=== PATIENT | male | born 1950 | race Caucasian/White ===

== ENCOUNTER 2018-10-16 18:19 | Inpatient (IN) | payer MEDICARE, MEDICAID ==
[~2018-10-16] VITALS: Ht 165.1 cm; Wt 70.4 kg
[2018-10-16] MEDS ORDERED: POTASSIUM BICARBONATE 25 MEQ TAB PEG STA (19:45)
[2018-10-16] MEDS ORDERED: CEFTRIAXONE 1 GM/50 ML (PMX) 50 ML IVPB STA (19:48)
[2018-10-16] MEDS ORDERED: AZITHROMYCIN 500MG/NS (PMX) 250 ML IV STA (19:48)
--- NOTE | 2018-10-16 19:48 | ERD ---
ER Documentation Chief Complaint Chief Complaint diffused ab pain x2days "bloody vomit" unk #of episodes; productive cough HPI 68-year-old gentleman history of prior stroke with left-sided deficits presents to the emergency room with multiple complaints including cough congestion, possible blood in emesis but unsure, abdominal discomfort and constipation. No reported fevers during this timeframe. The patient is G-tube fed. [facility] Family was giving the history using an plastics patternmaker. ROS All systems reviewed and are negative except as per history of present illness. Allergies Allergies: Coded Allergies: No Known Allergy (Unverified , 10/16/18) PMhx/Soc History of Surgery: Yes (APPENDECTOMY) Anesthesia Reaction: No Hx Neurological Disorder: Yes (CVA 8 MONTHS AGO ) Hx Respiratory Disorders: No Hx Cardiac Disorders: Yes (HTN, HYPERLIPIDEMIA ) Hx Psychiatric Problems: No Hx Miscellaneous Medical Probl: No Hx Alcohol Use: No Hx Substance Use: No Hx Tobacco Use: No Smoking Status: Never smoker FmHx Family History: No diabetes Physical Exam Vitals Vital Signs Date Temp Pulse Resp B/P (MAP) Pulse Ox O2 O2 Flow FiO2 Time Delivery Rate 10/16/18 65 14 121/95 99 Room Air 18:41 (104) 10/16/18 97.9 69 20 120/75 98 18:35 (90) Physical Exam General: Well developed, well nourished, no acute distress Head: Normocephalic, atraumatic. Eyes: Pupils equally reactive, EOM intact ENT: Moist mucous membranes Neck: Supple, no lymphadenopathy Respiratory: Lungs clear bilaterally, no distress Cardiovascular: RRR, no murmurs, rubs, or gallops Abdominal: Soft, non-tender, non-distended, no peritoneal signs, G-tube in good position : Deferred MSK: No edema, no unilateral swelling, residual left-sided deficits Neurologic: Alert and oriented residual left-sided deficit Skin: No rash Psych: Normal mood Result Diagram: 10/16/185 10/16/18 1835 Results 24 hrs Laboratory Tests Test 10/16/18 18:35 White Blood Count 7.4 10^3/ul Red Blood Count 5.56 10^6/ul Hemoglobin 15.2 g/dl Hematocrit 45.4 % Mean Corpuscular Volume 81.7 fl Mean Corpuscular Hemoglobin 27.3 pg Mean Corpuscular Hemoglobin Concent 33.5 g/dl Red Cell Distribution Width 15.0 % Platelet Count 299 10^3/UL Mean Platelet Volume 10.3 fl Immature Granulocytes % 0.300 % Neutrophils % 42.0 % Lymphocytes % 47.6 % Monocytes % 6.2 % Eosinophils % 3.5 % Basophils % 0.4 % Nucleated Red Blood Cells % 0.0 /100WBC Immature Granulocytes # 0.020 10^3/ul Neutrophils # 3.1 10^3/ul Lymphocytes # 3.5 10^3/ul Monocytes # 0.5 10^3/ul Eosinophils # 0.3 10^3/ul Basophils # 0.0 10^3/ul Nucleated Red Blood Cells # 0.0 10^3/ul Sodium Level 139 mmol/L Potassium Level 2.7 mmol/L Chloride Level 95 mmol/L Carbon Dioxide Level 33 mmol/L Anion Gap 11 Blood Urea Nitrogen 15 mg/dl Creatinine 0.75 mg/dl Est Glomerular Filtrat Rate mL/min > 60 mL/min Glucose Level 122 mg/dl Calcium Level 9.2 mg/dl Total Bilirubin 0.7 mg/dl Direct Bilirubin 0.00 mg/dl Indirect Bilirubin 0.7 mg/dl Aspartate Amino Transf (AST/SGOT) 33 IU/L Alanine Aminotransferase (ALT/SGPT) 21 IU/L Alkaline Phosphatase 125 IU/L Troponin I 0.023 ng/ml Total Protein 7.4 g/dl Albumin 4.0 g/dl Globulin 3.40 g/dl Albumin/Globulin Ratio 1.17 Lipase 39 U/L Current Medications Medications Dose Sig/Vicky Start Time Status Last (Trade) Ordered Route PRN Stop Time Admin Dose Reason Admin Potassium 25 meq ONCE STAT 10/16/18 DC Bicarbonate PEG 19:45 (K-Lyte 10/16/18 19:51 Efferv Tab) Azithromycin 250 ml @ ONCE STAT 10/16/18 250 mls/hr IV 19:48 10/16/18 20:47 Ceftriaxone 50 ml @ ONCE STAT 10/16/18 Sodium 100 mls/hr IVPB 19:48 10/16/18 20:17 Ondansetron 4 mg BRIDGE ORDER 10/16/18 HCl (Zofran PRN IV 20:30 Inj) NAUSEA/VOMITI 10/17/18 20:29 NG 650 mg ER BRIDGE 10/16/18 Acetaminophen PRN PO 20:30 (Tylenol .MILD PAIN 10/17/18 20:29 Tab) 1-3 OR TEMP Procedures/MDM EKG, MONITORS, & DIAGNOSTIC IMAGING: EKG: I reviewed and interpreted a 12-lead EKG. Rhythm: Normal sinus rhythm ST Changes: No contiguous ST segment elevations T waves: No contiguous T wave inversions Impression: No evidence of acute cardiac ischemia CXR IMPRESSION: Minimal new right basilar opacity possibly representing developing infiltrate. RPTAT: AADD CT a/p IMPRESSION: 1. G tube in place with tip and balloon in the gastric lumen. 2. Mild nonspecific small bowel ileus. 3. Mild ectasia of the distal abdominal aorta measuring up to 24 mm. 4. Otherwise, no evident acute process in the abdomen or pelvis. RPTAT: UU LAB INTERPRETATION: I reviewed the laboratory testing and it shows hypokalemia MEDICAL DECISION MAKING: Patient with very nonspecific symptoms but concern for possible pneumonia versus acute intra-abdominal process. Given the patient's comorbidities advanced imaging would be appropriate. ER COURSE: * Patient's chest x-ray is concerning for possible pneumonia. The patient does not meet Sirs criteria. Blood cultures prior to subtraction azithromycin provided. The patient is at a boarding care and other risk for Pseudomonas at this time. * CT abdomen pelvis is unremarkable. Potassium is being repleted through the G- tube CONSULTATION: None DISPOSITION PLAN: Accepting care team and consultations: I discussed the current laboratory data, diagnostic imaging and emergency care provided. Admitting team: Dr. Briseno Admitting team indication: Insurance directed Departure Diagnosis: Primary Impression: Community acquired pneumonia Laterality: right Lung location: lower lobe of lung Qualified Codes: J18.1 - Lobar pneumonia, unspecified organism Additional Impressions: History of stroke Abdominal pain Abdominal location: generalized Qualified Codes: R10.84 - Generalized abdominal pain Hypokalemia Condition: Stable MICHEL HOLLOWAY MD Oct 16, 2018 19:48
[2018-10-16] MEDS ORDERED: ONDANSETRON 4 MG INJ IV PRN ×2 (20:30→23:00)
[2018-10-16] MEDS ORDERED: ACETAMINOPHEN 325 MG TAB PO PRN (20:30)
[2018-10-16 21:45] VITALS: Ht 165.1 cm; Wt 70.4 kg
[2018-10-16 21:52] VITALS: BP 105/70; PULSE 72; RESP 19
[2018-10-16] MEDS ORDERED: DULCOLAX SUPP RECTAL (22:41)
[2018-10-16] MEDS ORDERED: SERT25TA PO (22:42)
[2018-10-16] MEDS ORDERED: LORA1TAB PO (22:42)
[2018-10-16] MEDS ORDERED: CLOP75TA27 PO (22:43)
[2018-10-16] MEDS ORDERED: ONDA4TAB8 PO (22:43)
[2018-10-16] MEDS ORDERED: ASPI-817 GTB (22:44)
[2018-10-16] MEDS ORDERED: HYDR25TA6 GTB (22:45)
[2018-10-16] MEDS ORDERED: DOCU-159 GTB (22:46)
[2018-10-16] MEDS ORDERED: SENN-120 GTB (22:47)
[2018-10-16] MEDS ORDERED: ATOR40TA68 GTB (22:48)
[2018-10-16] MEDS ORDERED: ONDANSETRON 4 MG TAB PO PRN (23:00)
[2018-10-16] MEDS ORDERED: NACL 0.9% 3 ML SYG IV SCH (23:00)
[2018-10-16] MEDS ORDERED: ALBUTEROL/IPRATROPIUM (NEB) 3 ML AMP HHN PRN (23:00)
--- NOTE | 2018-10-16 23:01 | HP ---
Date/Time of Note Date/Time of Note DATE: 10/16/18 TIME: 23:01 Assessment/Plan VTE Prophylaxis Pharmacological prophylaxis: heparin Lines/Catheters IV [facility] Saline Lock Urinary Cath still in place: No Assessment/Plan Assessment/Plan 1. Questionable hematemesis -CT abdomen/pelvis without acute findings -PPI -GI consult 2. Right-sided pneumonia -IV antibiotic -Respiratory culture 3. Hypokalemia: Replete 4. CVA, 8-month ago with left-sided deficit -Aspirin and statin 5. Hypertension: BP is in acceptable range 6. G-tube: Patient also able to take pured diet 7. Dyslipidemia: Continue statin 8. Previous history of tracheostomy: No acute issue Result Diagram: 10/16/18 1835 10/16/18 1835 Results 24hrs Laboratory Tests Test 10/16/18 18:35 White Blood Count 7.4 Red Blood Count 5.56 Hemoglobin 15.2 Hematocrit 45.4 Mean Corpuscular Volume 81.7 L Mean Corpuscular Hemoglobin 27.3 L Mean Corpuscular Hemoglobin Concent 33.5 Red Cell Distribution Width 15.0 H Platelet Count 299 Mean Platelet Volume 10.3 Immature Granulocytes % 0.300 Neutrophils % 42.0 Lymphocytes % 47.6 Monocytes % 6.2 Eosinophils % 3.5 Basophils % 0.4 Nucleated Red Blood Cells % 0.0 Immature Granulocytes # 0.020 Neutrophils # 3.1 Lymphocytes # 3.5 H Monocytes # 0.5 Eosinophils # 0.3 Basophils # 0.0 Nucleated Red Blood Cells # 0.0 Sodium Level 139 Potassium Level 2.7 *L Chloride Level 95 L Carbon Dioxide Level 33 H Anion Gap 11 Blood Urea Nitrogen 15 Creatinine 0.75 Est Glomerular Filtrat Rate mL/min > 60 Glucose Level 122 Calcium Level 9.2 Total Bilirubin 0.7 Direct Bilirubin 0.00 Indirect Bilirubin 0.7 Aspartate Amino Transf (AST/SGOT) 33 Alanine Aminotransferase (ALT/SGPT) 21 Alkaline Phosphatase 125 H Troponin I 0.023 Total Protein 7.4 Albumin 4.0 Globulin 3.40 H Albumin/Globulin Ratio 1.17 Lipase 39 HPI/ROS Admit Date/Time Admit Date/Time Oct 16, 2018 at 20:02 Hx of Present Illness This is a 68-year-old male with a history of hypertension, dyslipidemia, CVA with left-sided deficits, dysphagia with G-tube, previous history of tracheostomy. Patient presented to the ER complaining of abdominal pain, cough and questionable hematemesis. Patient had a stroke about a month ago with left- sided paralysis. He is also slow with answering questions and is a poor historian. He did complain of abdominal pain and vomiting, but denied vomiting blood even thoug ER documented that as part of his chief complaint. He did complain of pain in the left neck area. In ER, vitals were stable. Lab shows a potassium of 2.7 otherwise basic labs within acceptable range. CT abdomen/pelvis without acute findings. Chest x-ray shows right basilar opacity, possibly representing developing pneumonia. PMH/Family/Social Past Medical History Medical History: other (See HPI) Medications Current Medications Ondansetron HCl (Zofran Inj) 4 mg BRIDGE ORDER PRN IV NAUSEA/VOMITING; Start 10/16/18 at 20:30; Stop 10/17/18 at 20:29 Acetaminophen (Tylenol Tab) 650 mg ER BRIDGE PRN PO .MILD PAIN 1-3 OR TEMP; Start 10/16/18 at 20:30; Stop 10/17/18 at 20:29 IV Flush (NS 3 ml) 3 ml PER PROTOCOL IV ; Start 10/16/18 at 23:00; Status UNV Ondansetron HCl (Zofran Inj) 4 mg Q6H PRN IV NAUSEA/VOMITING; Start 10/16/18 at 23:00; Status UNV Acetaminophen (Tylenol Tab) 650 mg Q6H PRN PO .PAIN 1-3 OR TEMP; Start 10/16/18 at 23:00; Status UNV Albuterol/ Ipratropium (Duoneb) 3 ml Q2H RESP THERAPY PRN HHN SHORTNESS OF BREATH; Start 10/16/18 at 23:00; Status UNV Aspirin (Halfprin) 81 mg DAILY PO ; Start 10/17/18 at 09:00; Status UNV Atorvastatin Calcium (Lipitor) 40 mg QHS GTB ; Start 10/17/18 at 21:00; Status UNV Clopidogrel Bisulfate (plaVIX) 75 mg DAILY PO ; Start 10/17/18 at 09:00; Status UNV Docusate Sodium (Colace) 100 mg DAILY PO ; Start 10/17/18 at 09:00; Status UNV Lorazepam (Ativan) 1 mg TID PRN PO ANXIETY; Start 10/16/18 at 23:00; Status UNV Ondansetron HCl (Zofran Tab) 4 mg Q6H PRN PO NAUSEA AND/OR VOMITING; Start at 23:00; Status UNV Sertraline HCl (Zoloft) 25 mg DAILY PO ; Start 10/17/18 at 09:00; Status UNV Coded Allergies: No Known Allergy (Unverified , 10/16/18) Past Surgical History Past Surgical Hx: other (See HPI) Family History Significant Family History: no pertinent family hx Social History Alcohol Use: other Smoking Status: Unknown if ever smoked (Unknown) Drug Use: other (Unknown) Exam/Review of Systems Vital Signs Vitals Vital Signs Date Temp Pulse Resp B/P (MAP) Pulse Ox O2 O2 Flow FiO2 Time Delivery Rate 10/16/18 98.1 72 19 105/70 97 Room Air 21:52 (82) Exam Constitutional: other (No acute distress. Patient was found lying sideway on the bed) Head: normocephalic, atraumatic Eyes: PERRL Respiratory: clear to auscultation, normal air movement Cardiovascular: regular rate and rhythm, nl pulses Gastrointestinal: soft, non-tender Extremities: other (Left upper extremity paralysis. On my examination left arm was locked in flexed position) IQRA POZO MD Oct 16, 2018 23:01
[2018-10-17] MEDS: ACETAMINOPHEN 325 MG TAB PO PRN ×3 (00:24→17:46)
[2018-10-17] MEDS: LORAZEPAM 1 MG TAB PO PRN ×2 (00:24→16:17)
[2018-10-17 02:00] VITALS: BP 119/78; PULSE 80; RESP 19
[2018-10-17] MEDS ORDERED: GUAIFENESIN/CODEINE 5ML CUP PO PRN (05:00)
[2018-10-17] MEDS: PANTOPRAZOLE 40 MG INJ IV SCH (05:31)
[2018-10-17] MEDS ORDERED: PANTOPRAZOLE (EC) 40 MG TAB PO SCH (06:00)
[2018-10-17 07:54] VITALS: BP 109/71; PULSE 71; RESP 18
[2018-10-17] MEDS: SERTRALINE 50 MG TAB PO SCH (08:57)
[2018-10-17] MEDS: ASPIRIN (EC) 81 MG TAB PO SCH (08:57)
[2018-10-17] MEDS: CEFTRIAXONE 1 GM/50 ML (PMX) 50 ML IVPB SCH ×2 (08:57→21:26)
[2018-10-17] MEDS: DOCUSATE SODIUM 100 MG CAP PO SCH (08:57)
[2018-10-17] MEDS: CLOPIDOGREL 75 MG TAB PO SCH (08:57)
[2018-10-17] MEDS ORDERED: AZITHROMYCIN 500MG/NS (PMX) 250 ML IVPB SCH (09:00)
[2018-10-17] MEDS: POTASSIUM CHLORIDE 100 ML IVPB SCH ×3 (11:04→16:02)
[2018-10-17 16:14] VITALS: BP 149/81; PULSE 75; RESP 18
--- NOTE | 2018-10-17 18:37 | PN ---
Date/Time of Note Date/Time of Note DATE: 10/17/18 TIME: 18:34 Assessment/Plan VTE [place]phylaxis [place] [facility] [place] [facility]: 3 [place] [facility] [place] Yes SCD contraindicated: low risk/ambulating Pharmacological prophylaxis: NA/contraindicated, LMWH Pharm contraindication: other (possible gi bleed) Lines/Catheters IV [facility]ter Type (from [facility] Peripheral IV Urinary Cath still in place: No Assessment/Plan Hospital Course Assessment plan 1. Community acquired versus aspiration pneumonia, stable, continue antibiotics 2. GI bleed? Appreciate GI assistance. Endoscopy if further objective evidence seen 3. History of left-sided stroke 4. Delirium encephalopathy? 5. Anemia 6. Hypertension 7. Dysphagia, on oral feeds at home along with PEG tube feeds 8. Moderate hypokalemia possibly secondary to vomiting, replace 9. Lower extremity cramps, replace potassium S: Cough but no vomiting noted. Tolerating feeds and pured diet O: Vital signs stable Physical exam No pallor adenopathy JVD Regular no m/r/g Mostly clear no tachypnea Bs present nt nd; no r/r/g; peg c/d/i No edema Result Diagram: 10/17/18 0459 10/17/18 0459 Results 24hrs Laboratory Tests Test 10/16/18 18:35 10/17/18 04:59 White Blood Count 7.4 10.1 # Red Blood Count 5.56 5.47 Hemoglobin 15.2 15.0 Hematocrit 45.4 44.1 Mean Corpuscular Volume 81.7 L 80.6 L Mean Corpuscular Hemoglobin 27.3 L 27.4 L Mean Corpuscular Hemoglobin Concent 33.5 34.0 Red Cell Distribution Width 15.0 H 14.7 H Platelet Count 299 308 Mean Platelet Volume 10.3 10.4 Immature Granulocytes % 0.300 0.300 Neutrophils % 42.0 56.9 Lymphocytes % 47.6 34.0 Monocytes % 6.2 5.8 Eosinophils % 3.5 2.6 Basophils % 0.4 0.4 Nucleated Red Blood Cells % 0.0 0.0 Immature Granulocytes # 0.020 0.030 Neutrophils # 3.1 5.7 Lymphocytes # 3.5 H 3.4 H Monocytes # 0.5 0.6 Eosinophils # 0.3 0.3 Basophils # 0.0 0.0 Nucleated Red Blood Cells # 0.0 0.0 Sodium Level 139 140 Potassium Level 2.7 *L 2.6 *L Chloride Level 95 L 96 L Carbon Dioxide Level 33 H 32 H Anion Gap 11 12 Blood Urea Nitrogen 15 12 Creatinine 0.75 0.65 Est Glomerular Filtrat Rate mL/min > 60 > 60 Glucose Level 122 111 Calcium Level 9.2 9.4 Total Bilirubin 0.7 0.6 Direct Bilirubin 0.00 0.00 Indirect Bilirubin 0.7 0.6 Aspartate Amino Transf (AST/SGOT) 33 32 Alanine Aminotransferase (ALT/SGPT) 21 24 Alkaline Phosphatase 125 H 126 H Troponin I 0.023 Total Protein 7.4 7.4 Albumin 4.0 4.0 Globulin 3.40 H 3.40 H Albumin/Globulin Ratio 1.17 1.17 Lipase 39 Hemoglobin A1c 5.4 Phosphorus Level 2.5 Magnesium Level 1.8 Triglycerides Level 69 Cholesterol Level 100 LDL Cholesterol, Calculated 46 HDL Cholesterol 40 Cholesterol/HDL Ratio 2.5 Exam/Review of Systems Exam Vitals Vital Signs Date Temp Pulse Resp B/P (MAP) Pulse Ox O2 O2 Flow FiO2 Time Delivery Rate 10/17/18 97.5 75 18 149/81 94 Room Air 16:14 (103) Intake and Output 10/16/18 10/16/18 10/17/18 1515:00 23:00 07:00 IntakeIntake Total 660 ml BalanceBalance 660 ml Results Results 24hrs Laboratory Tests Test 10/16/18 18:35 10/17/18 04:59 White Blood Count 7.4 10.1 # Red Blood Count 5.56 5.47 Hemoglobin 15.2 15.0 Hematocrit 45.4 44.1 Mean Corpuscular Volume 81.7 L 80.6 L Mean Corpuscular Hemoglobin 27.3 L 27.4 L Mean Corpuscular Hemoglobin Concent 33.5 34.0 Red Cell Distribution Width 15.0 H 14.7 H Platelet Count 299 308 Mean Platelet Volume 10.3 10.4 Immature Granulocytes % 0.300 0.300 Neutrophils % 42.0 56.9 Lymphocytes % 47.6 34.0 Monocytes % 6.2 5.8 Eosinophils % 3.5 2.6 Basophils % 0.4 0.4 Nucleated Red Blood Cells % 0.0 0.0 Immature Granulocytes # 0.020 0.030 Neutrophils # 3.1 5.7 Lymphocytes # 3.5 H 3.4 H Monocytes # 0.5 0.6 Eosinophils # 0.3 0.3 Basophils # 0.0 0.0 Nucleated Red Blood Cells # 0.0 0.0 Sodium Level 139 140 Potassium Level 2.7 *L 2.6 *L Chloride Level 95 L 96 L Carbon Dioxide Level 33 H 32 H Anion Gap 11 12 Blood Urea Nitrogen 15 12 Creatinine 0.75 0.65 Est Glomerular Filtrat Rate mL/min > 60 > 60 Glucose Level 122 111 Calcium Level 9.2 9.4 Total Bilirubin 0.7 0.6 Direct Bilirubin 0.00 0.00 Indirect Bilirubin 0.7 0.6 Aspartate Amino Transf (AST/SGOT) 33 32 Alanine Aminotransferase (ALT/SGPT) 21 24 Alkaline Phosphatase 125 H 126 H Troponin I 0.023 Total Protein 7.4 7.4 Albumin 4.0 4.0 Globulin 3.40 H 3.40 H Albumin/Globulin Ratio 1.17 1.17 Lipase 39 Hemoglobin A1c 5.4 Phosphorus Level 2.5 Magnesium Level 1.8 Triglycerides Level 69 Cholesterol Level 100 LDL Cholesterol, Calculated 46 HDL Cholesterol 40 Cholesterol/HDL Ratio 2.5 Medications Medication Current Medications Ondansetron HCl (Zofran Inj) 4 mg BRIDGE ORDER PRN IV NAUSEA/VOMITING; Start 10/16/18 at 20:30; Stop 10/17/18 at 20:29 Acetaminophen (Tylenol Tab) 650 mg ER BRIDGE PRN PO .MILD PAIN 1-3 OR TEMP; Start 10/16/18 at 20:30; Stop 10/17/18 at 20:29 IV Flush (NS 3 ml) 3 ml PER PROTOCOL IV ; Start 10/16/18 at 23:00 Ondansetron HCl (Zofran Inj) 4 mg Q6H PRN IV NAUSEA/VOMITING; Start 10/16/18 at 23:00 Acetaminophen (Tylenol Tab) 650 mg Q6H PRN PO .PAIN 1-3 OR TEMP Last a dministered on 10/17/18at 17:46; Admin Dose 650 MG; Start 10/16/18 at 23:00 Albuterol/ Ipratropium (Duoneb) 3 ml Q2H RESP THERAPY PRN HHN SHORTNESS OF BREATH; Start 10/16/18 at 23:00 Aspirin (Halfprin) 81 mg DAILY PO Last administered on 10/17/18at 08:57; Admin Dose 81 MG; Start 10/17/18 at 09:00 Atorvastatin Calcium (Lipitor) 40 mg QHS PO ; Start 10/17/18 at 21:00 Clopidogrel Bisulfate (plaVIX) 75 mg DAILY PO Last administered on 10/17/18 08:57; Admin Dose 75 MG; Start 10/17/18 at 09:00 Docusate Sodium (Colace) 100 mg DAILY PO Last administered on 10/17/18 08:57; Admin Dose 100 MG; Start 10/17/18 at 09:00 Lorazepam (Ativan) 1 mg TID PRN PO ANXIETY Last administered on 10/17/18 16:17; Admin Dose 1 MG; Start 10/16/18 at 23:00 Ondansetron HCl (Zofran Tab) 4 mg Q6H PRN PO NAUSEA AND/OR VOMITING; Start 10/16/18 at 23:00 Sertraline HCl (Zoloft) 25 mg DAILY PO Last administered on 10/17/18 08:57; Admin Dose 25 MG; Start 10/17/18 at 09:00 Azithromycin 250 ml @ 250 mls/hr DAILY IVPB Last administered on 10/17/18 09:46; Admin Dose 250 MLS/HR; Start 10/17/18 at 09:00 Ceftriaxone Sodium 50 ml @ 100 mls/hr Q12H IVPB Last administered on 10/17/18 08:57; Admin Dose 100 MLS/HR; Start 10/17/18 at 09:00 Guaifenesin/ Codeine Phosphate (Robitussin Ac Liquid Cup) 10 ml Q4H PRN PO dry cough Last administered on 10/17/18 04:57; Admin Dose 10 ML; Start 10/17/18 at 05:00; Stop 10/18/18 at 05:00 Pantoprazole (Protonix Iv) 40 mg DAILY@06 IV Last administered on 10/17/18 05:31; Admin Dose 40 MG; Start 10/17/18 at 06:00 MARCY GARNETT MD Oct 17, 2018 18:37
[2018-10-17 19:51] VITALS: BP 154/94; PULSE 71; RESP 17
[2018-10-17] MEDS ORDERED: VANCOMYCIN IV PER PHARMACY XX SCH (21:00)
[2018-10-17] MEDS: ATORVASTATIN 40 MG TAB PO SCH (21:25)
[2018-10-17] MEDS ORDERED: VANCOMYCIN HCL 1.5 GM in SOD CHLORIDE 0.9% 250 ML IVPB ONE (23:00)
[2018-10-18 01:32] VITALS: BP 113/77; PULSE 79; RESP 17
[2018-10-18] MEDS: ACETAMINOPHEN 325 MG TAB PO PRN (02:02)
[2018-10-18] MEDS: PANTOPRAZOLE 40 MG INJ IV SCH (05:24)
[2018-10-18 07:45] VITALS: BP 124/82; PULSE 67; RESP 16
[2018-10-18] MEDS: LACTOBACILLUS RHAMNOSUS CAP PO SCH ×2 (09:25→21:30)
[2018-10-18] MEDS: CEFTRIAXONE 1 GM/50 ML (PMX) 50 ML IVPB SCH ×2 (09:25→21:30)
[2018-10-18] MEDS: POTASSIUM CHLORIDE 100 ML IVPB SCH ×2 (09:25→10:56)
[2018-10-18] MEDS: CLOPIDOGREL 75 MG TAB PO SCH (09:25)
[2018-10-18] MEDS: SERTRALINE 50 MG TAB PO SCH (09:26)
[2018-10-18] MEDS: ASPIRIN (EC) 81 MG TAB PO SCH (09:26)
[2018-10-18] MEDS: DOCUSATE SODIUM 100 MG CAP PO SCH (09:26)
[2018-10-18] MEDS: VANCOMYCIN 1 GM 250 ML IVPB SCH ×2 (11:00→23:23)
[2018-10-18 14:47] VITALS: BP 129/71; PULSE 79; RESP 18
--- NOTE | 2018-10-18 18:23 | PN ---
Date/Time of Note Date/Time of Note DATE: 10/18/18 TIME: 18:22 Assessment/Plan VTE Prophylaxis Risk score (from Ns)>0 risk: 6 [place] [facility] [place] Pharmacological prophylaxis: NA/contraindicated Pharm contraindication: other Lines/Catheters IV C[facility]ter Type (from [facility]): Saline Lock Urinary Cath still in place: No Assessment/Plan Hospital Course SUBJECTIVE: The patient remains confused. The patient remains afebrile. OBJECTIVE: Physical Exam General: Adequately build 68 year-old male lying in bed in no apparent distress. HEENT: Normocephalic, atraumatic. Eyes: Anicteric sclerae, conjunctivae clear. ENT: Nasal septum midline, oral mucosa moist. Neck supple. Respiratory: Bilaterally diminished breath sounds. No use of accessory muscles of respiration. No adventitious breath sounds. Cardiovascular: S1, S2 heard. Regular rate and rhythm. Abdomen: Soft, nontender, and nondistended. Bowel sounds positive in all 4 quadrants. G-tube in place. Genitourinary: Deferred. Extremities: No cyanosis, no clubbing, no edema. Peripheral pulses palpable. Neurologic: The patient is awake and alert. Oriented to self. Left hemiplegia. Skin: Normal skin turgor. No skin rashes. Labs & Vitals per chart ASSESSMENT & PLAN This is a 68-year-old male with a past medical history of stroke with underlying dysphagia, hypertension, dyslipidemia, and chronic encephalopathy who was brought in from a [facility] facility because of reported abdominal pain and reported hematemesis. The patient was admitted to inpatient setting for further treatment and evaluation. 1. Reported gastrointestinal bleeding. -No episodes of hematemesis. -Monitor H&H closely. -Continue PPI. 2. Gram-positive bacteremia. -Etiology unclear. -On vancomycin. 3. Possible underlying pneumonia. -Possible aspiration pneumonia. -Continue antimicrobials. 4. History of stroke. -Continue dual antiplatelet therapy. -Continue statins. 5. Hypokalemia. -Probably secondary to underlying vomiting. -Replete. 6. Dysphagia. -On pureed diet. -Aspiration precautions. -ST evaluation. 7. MRSA colonization of the nares. -Start Bactroban. 8. Fluids, electrolytes, and nutrition. -Pured diet. 9. DVT prophylaxis. -Bilateral SCDs. 10. Plan. -Continue antimicrobials. -Obtain ID consult. The patient was seen in collaboration with Dr. Bonner. Result Diagram: 10/18/18 0453 10/18/18 0453 Results 24hrs Laboratory Tests Test 10/17/18 18:46 10/17/18 21:42 10/18/18 04:53 Potassium Level 3.5 3.2 L 2.9 *L White Blood Count 6.2 # Red Blood Count 4.99 Hemoglobin 13.8 L Hematocrit 40.3 L Mean Corpuscular Volume 80.8 L Mean Corpuscular Hemoglobin 27.7 L Mean Corpuscular Hemoglobin Concent 34.2 Red Cell Distribution Width 15.0 H Platelet Count 270 Mean Platelet Volume 10.3 Immature Granulocytes % 0.300 Neutrophils % 49.3 Lymphocytes % 40.1 Monocytes % 6.7 Eosinophils % 3.1 Basophils % 0.5 Nucleated Red Blood Cells % 0.0 Immature Granulocytes # 0.020 Neutrophils # 3.0 Lymphocytes # 2.5 Monocytes # 0.4 Eosinophils # 0.2 Basophils # 0.0 Nucleated Red Blood Cells # 0.0 Prothrombin Time 13.1 Prothrombin Time Ratio 1.0 INR International Normalized Ratio 0.98 Sodium Level 141 Chloride Level 102 Carbon Dioxide Level 28 Anion Gap 11 Blood Urea Nitrogen 8 Creatinine 0.58 L Est Glomerular Filtrat Rate mL/min > 60 Glucose Level 94 Calcium Level 9.1 Phosphorus Level 2.3 L Magnesium Level 1.8 Total Bilirubin 0.6 Direct Bilirubin 0.00 Indirect Bilirubin 0.6 Aspartate Amino Transf (AST/SGOT) 32 Alanine Aminotransferase (ALT/SGPT) 30 Alkaline Phosphatase 107 Total Protein 6.7 Albumin 3.6 Globulin 3.10 Albumin/Globulin Ratio 1.16 Thyroid Stimulating Hormone (TSH) 0.947 Exam/Review of Systems Exam Vitals Vital Signs Date Temp Pulse Resp B/P (MAP) Pulse Ox O2 O2 Flow FiO2 Time Delivery Rate 10/18/18 98.1 79 18 129/71 98 14:47 (90) 10/17/18 Room Air 16:14 Intake and Output 10/17/18 10/17/18 10/18/18 1515:00 23:00 07:00 IntakeIntake Total 760 ml 250 ml 250 ml BalanceBalance 760 ml 250 ml 250 ml Results Results 24hrs Laboratory Tests Test 10/17/18 18:46 10/17/18 21:42 10/18/18 04:53 Potassium Level 3.5 3.2 L 2.9 *L White Blood Count 6.2 # Red Blood Count 4.99 Hemoglobin 13.8 L Hematocrit 40.3 L Mean Corpuscular Volume 80.8 L Mean Corpuscular Hemoglobin 27.7 L Mean Corpuscular Hemoglobin Concent 34.2 Red Cell Distribution Width 15.0 H Platelet Count 270 Mean Platelet Volume 10.3 Immature Granulocytes % 0.300 Neutrophils % 49.3 Lymphocytes % 40.1 Monocytes % 6.7 Eosinophils % 3.1 Basophils % 0.5 Nucleated Red Blood Cells % 0.0 Immature Granulocytes # 0.020 Neutrophils # 3.0 Lymphocytes # 2.5 Monocytes # 0.4 Eosinophils # 0.2 Basophils # 0.0 Nucleated Red Blood Cells # 0.0 Prothrombin Time 13.1 Prothrombin Time Ratio 1.0 INR International Normalized Ratio 0.98 Sodium Level 141 Chloride Level 102 Carbon Dioxide Level 28 Anion Gap 11 Blood Urea Nitrogen 8 Creatinine 0.58 L Est Glomerular Filtrat Rate mL/min > 60 Glucose Level 94 Calcium Level 9.1 Phosphorus Level 2.3 L Magnesium Level 1.8 Total Bilirubin 0.6 Direct Bilirubin 0.00 Indirect Bilirubin 0.6 Aspartate Amino Transf (AST/SGOT) 32 Alanine Aminotransferase (ALT/SGPT) 30 Alkaline Phosphatase 107 Total Protein 6.7 Albumin 3.6 Globulin 3.10 Albumin/Globulin Ratio 1.16 Thyroid Stimulating Hormone (TSH) 0.947 Medications Medication Current Medications IV Flush (NS 3 ml) 3 ml PER PROTOCOL IV ; Start 10/16/18 at 23:00 Ondansetron HCl (Zofran Inj) 4 mg Q6H PRN IV NAUSEA/VOMITING; Start 10/16/18 at 23:00 Acetaminophen (Tylenol Tab) 650 mg Q6H PRN PO .PAIN 1-3 OR TEMP Last administer ed on 10/18/18at 02:02; Admin Dose 650 MG; Start 10/16/18 at 23:00 Albuterol/ Ipratropium (Duoneb) 3 ml Q2H RESP THERAPY PRN HHN SHORTNESS OF BREATH; Start 10/16/18 at 23:00 Aspirin (Halfprin) 81 mg DAILY PO Last administered on 10/18/18at 09:26; Admin Dose 81 MG; Start 10/17/18 at 09:00 Atorvastatin Calcium (Lipitor) 40 mg QHS PO Last administered on 4/14/19at 21:25; Admin Dose 40 MG; Start 10/17/18 at 21:00 Clopidogrel Bisulfate (plaVIX) 75 mg DAILY PO Last administered on 10/18/18 09:25; Admin Dose 75 MG; Start 10/17/18 at 09:00 Docusate Sodium (Colace) 100 mg DAILY PO Last administered on 10/18/18 09:26; Admin Dose 100 MG; Start 10/17/18 at 09:00 Lorazepam (Ativan) 1 mg TID PRN PO ANXIETY Last administered on 10/17/18 16:17; Admin Dose 1 MG; Start 10/16/18 at 23:00 Ondansetron HCl (Zofran Tab) 4 mg Q6H PRN PO NAUSEA AND/OR VOMITING; Start 10/16/18 at 23:00 Sertraline HCl (Zoloft) 25 mg DAILY PO Last administered on 10/18/18 09:26; Admin Dose 25 MG; Start 10/17/18 at 09:00 Ceftriaxone Sodium 50 ml @ 100 mls/hr Q12H IVPB Last administered on 10/18/18 09:25; Admin Dose 100 MLS/HR; Start 10/17/18 at 09:00 Lactobacillus Acidophilus/ Rhamnosus (Culturelle) 1 cap BID PO Last administered on 10/18/18 09:25; Admin Dose 1 CAP; Start 10/18/18 at 09:00 Vancomycin HCl (Vanco Iv Per Pharmacy) VANCOMYCIN PER PHARMACY PER PROTOCOL XX ; Start 10/17/18 at 21:00 Vancomycin HCl 250 ml @ 125 mls/hr Q12H IVPB Last administered on 10/18/18at 11:00; Admin Dose 125 MLS/HR; Start 10/18/18 at 11:00 Miscellaneous Information (*Rx Drug Level Order Reminder*) VANCOMYCIN TROUGH AT 1000 ONCE ONCE XX ; Start 10/19/18 at 10:00; Stop 10/19/18 at 10:01 Lansoprazole (Prevacid) 30 mg DAILY@06 PO ; Start 10/19/18 at 06:00 EDELMIRA HERZOG NP Oct 18, 2018 18:23
[2018-10-18 21:00] VITALS: BP 132/79; PULSE 81; RESP 19
[2018-10-18] MEDS: MUPIROCIN 2% 22 GM OINT TOP SCH (21:30)
[2018-10-18] MEDS: ATORVASTATIN 40 MG TAB PO SCH (21:30)
[2018-10-18] MEDS: LORAZEPAM 1 MG TAB PO PRN (21:40)
[2018-10-19 02:00] VITALS: BP 150/92; PULSE 77; RESP 19
[2018-10-19] MEDS: LANSOPRAZOLE 30 MG CAP PO SCH (06:49)
[2018-10-19 07:56] VITALS: BP 149/92; PULSE 74; RESP 18
[2018-10-19] MEDS: SERTRALINE 50 MG TAB PO SCH (08:21)
[2018-10-19] MEDS: CEFTRIAXONE 1 GM/50 ML (PMX) 50 ML IVPB SCH ×2 (08:21→20:52)
[2018-10-19] MEDS: CLOPIDOGREL 75 MG TAB PO SCH (08:21)
[2018-10-19] MEDS: DOCUSATE SODIUM 100 MG CAP PO SCH (08:21)
[2018-10-19] MEDS: LACTOBACILLUS RHAMNOSUS CAP PO SCH ×2 (08:21→20:53)
[2018-10-19] MEDS: ASPIRIN (EC) 81 MG TAB PO SCH (08:21)
[2018-10-19] MEDS: MUPIROCIN 2% 22 GM OINT TOP SCH ×2 (08:22→20:53)
[2018-10-19] MEDS: VANCOMYCIN 1 GM 250 ML IVPB SCH (11:42)
[2018-10-19 14:33] VITALS: BP 123/81; PULSE 76; RESP 17
[2018-10-19] MEDS: ACETAMINOPHEN 325 MG TAB PO PRN ×2 (15:22→20:52)
[2018-10-19] MEDS: LORAZEPAM 1 MG TAB PO PRN ×2 (15:25→20:53)
--- NOTE | 2018-10-19 15:47 | CONS ---
DATE OF ADMISSION: 10/16/2018 DATE OF CONSULTATION: 10/19/2018 REASON FOR CONSULTATION: Antibiotic management. HISTORY OF PRESENT ILLNESS: Alfredo Zhang is a 68-year-old male who comes in with diff use abdominal pain of 2 days' duration. His past problems include: 1. History of CVA with left-sided deficit. 2. Status post appendectomy. 3. Hypertension. 4. Hyperlipidemia. The patient had a stroke 8 months ago. He comes in now complaining of cough, congestion, possible bl ood in his emesis, abdominal discomfort, and constipation. The patient is G-tube fed, comes from a [facility]. On admission on the , his white count was 7.4, hemoglobin and hematocrit of 15.2 and 45.4, platel et count of 299,000. BUN and creatinine 15/0.75. Potassium was 2.7. As noted, his white count was 7.4 with 42% neutrophils. A CT scan of the abdomen and pelvis was done without acute findings. A GI consult was called. The patient was noted to have a right-sided pneumonia. His chest x-ray showed new right basilar opacity, possibly representing developing infiltrate. He has CT scan of the abdome n and pelvis. G-tube in place, tip and balloon in the gastric lumen. Mild nonspecific small bowel i leus. Mild ectasia of the distal aorta. Otherwise, no evident acute process in the abdomen. The pa tient was started on vancomycin and ceftriaxone. The patient remains confused and reported GI bleedi ng. Gram-positive bacteremia with Staphylococcus species and coagulase-negative staph in the blood, which may or may not be contaminant, although, it was drawn 15 minutes apart. PHYSICAL EXAMINATION: GENERAL: On physical examination, the patient is a well-developed, well-nourished 68-year-old male, who is awake, responsive, in no acute distress. SKIN: Without generalized rash. HEENT: Within normal limits. NECK: Supple. LYMPH NODES: None palpable. CHEST: Decreased breath sounds at the bases. HEART: Without murmur or gallop. ABDOMEN: Soft, nontender, without organosplenomegaly or masses. EXTREMITIES: Without cyanosis, clubbing, or edema. Pulses 1+ distal extremities. RECTAL EXAM: Deferred. GENITAL EXAM: Deferred. NEUROLOGICAL EVALUATION: No focal neurological abnormality. IMPRESSION AND PLAN: The patient has a gastrostomy tube secondary to dysphagia. He has positive carl teremia, probably contaminant, but should be repeated. He has aspiration pneumonia, stroke, hypokale anabella, methicillin-resistant Staphylococcus aureus (MRSA) of the nares - for which Bactroban was starte d. He currently has a white count of 6200 as of the . I believe that we will repeat his blood c ultures, if they were not done, and continue him on current therapy. I will dictate my findings to [facility] hospitalist. Dictated By: VALENTINE CORTES MD, JD/NTS Conf#: [id number] DID#: [id number] CC: IQRA POZO MD;*End*
[2018-10-19] MEDS ORDERED: POTASSIUM CHLORIDE 20 MEQ POWDER FOR ORAL SOLN GTB ONE (16:00)
--- NOTE | 2018-10-19 16:11 | PN ---
Date/Time of Note Date/Time of Note DATE: 10/19/18 TIME: 16:09 Assessment/Plan VTE Prophylaxis Risk score (from Ns)>0 risk: 4 SCD applied (from Ns): Yes Pharmacological prophylaxis: NA/contraindicated Pharm contraindication: other (Reported bleeding.) Lines/Catheters [facility] (from [facility] Saline Lock Urinary Cath still in place: No Assessment/Plan Hospital Course SUBJECTIVE: The patient remains confused. The patient remains afebrile. OBJECTIVE: Physical Exam General: Adequately build 68 year-old male lying in bed in no apparent distress. HEENT: Normocephalic, atraumatic. Eyes: Anicteric sclerae, conjunctivae clear. ENT: Nasal septum midline, oral mucosa moist. Neck supple. Respiratory: Bilaterally diminished breath sounds. No use of accessory muscles of respiration. No adventitious breath sounds. Cardiovascular: S1, S2 heard. Regular rate and rhythm. Abdomen: Soft, nontender, and nondistended. Bowel sounds positive in all 4 quadrants. G-tube in place. Genitourinary: Deferred. Extremities: No cyanosis, no clubbing, no edema. Peripheral pulses palpable. Neurologic: The patient is awake and alert. Oriented to self. Left hemiplegia. Skin: Normal skin turgor. No skin rashes. Labs & Vitals per chart ASSESSMENT & PLAN This is a 68-year-old male with a past medical history of stroke with underlying dysphagia, hypertension, dyslipidemia, and chronic encephalopathy who was brought in from a [facility] facility because of reported abdominal pain and reported hematemesis. The patient was admitted to inpatient setting for further treatment and evaluation. 1. Reported gastrointestinal bleeding. -No episodes of hematemesis. -Monitor H&H closely. -Continue PPI. 2. Gram-positive bacteremia. -Etiology unclear. -On vancomycin. 3. Possible underlying pneumonia. -Possible aspiration pneumonia. -Continue antimicrobials. 4. History of stroke. -Continue dual antiplatelet therapy. -Continue statins. 5. Hypokalemia. -Probably secondary to underlying vomiting. -Replete. 6. Dysphagia. -NPO. -Aspiration precautions. -ST evaluation. 7. MRSA colonization of the nares. -Continue Bactroban. 8. Fluids, electrolytes, and nutrition. -NPO. -IVFs. 9. DVT prophylaxis. -Bilateral SCDs. 10. Plan. -Continue antimicrobials. -Video swallow evaluation for 10/20/2018. The patient was seen in collaboration with Dr. Bonner. Result Diagram: 10/19/18 0454 10/19/18 0454 Results 24hrs Laboratory Tests Test 10/19/18 04:54 10/19/18 10:25 White Blood Count 7.6 # Red Blood Count 5.19 Hemoglobin 14.2 Hematocrit 41.8 L Mean Corpuscular Volume 80.5 L Mean Corpuscular Hemoglobin 27.4 L Mean Corpuscular Hemoglobin Concent 34.0 Red Cell Distribution Width 15.3 H Platelet Count 283 Mean Platelet Volume 10.3 Immature Granulocytes % 0.100 Neutrophils % 46.0 Lymphocytes % 44.2 Monocytes % 6.8 Eosinophils % 2.5 Basophils % 0.4 Nucleated Red Blood Cells % 0.0 Immature Granulocytes # 0.010 Neutrophils # 3.5 Lymphocytes # 3.4 H Monocytes # 0.5 Eosinophils # 0.2 Basophils # 0.0 Nucleated Red Blood Cells # 0.0 Sodium Level 140 Potassium Level 3.2 L Chloride Level 105 Carbon Dioxide Level 25 Anion Gap 10 Blood Urea Nitrogen 10 Creatinine 0.52 L Est Glomerular Filtrat Rate mL/min > 60 Glucose Level 89 Calcium Level 9.2 Phosphorus Level 2.5 Magnesium Level 1.7 Vancomycin Level Trough 6.6 L Exam/Review of Systems Exam Vitals Vital Signs Date Temp Pulse Resp B/P (MAP) Pulse Ox O2 O2 Flow FiO2 Time Delivery Rate 10/19/18 98.0 76 17 123/81 98 Room Air 14:33 (95) Intake and Output 10/18/18 10/18/18 10/19/18 1515:00 23:00 07:00 IntakeIntake Total 1500 ml 290 ml 250 ml BalanceBalance 1500 ml 290 ml 250 ml Results Results 24hrs Laboratory Tests Test 10/19/18 04:54 10/19/18 10:25 White Blood Count 7.6 # Red Blood Count 5.19 Hemoglobin 14.2 Hematocrit 41.8 L Mean Corpuscular Volume 80.5 L Mean Corpuscular Hemoglobin 27.4 L Mean Corpuscular Hemoglobin Concent 34.0 Red Cell Distribution Width 15.3 H Platelet Count 283 Mean Platelet Volume 10.3 Immature Granulocytes % 0.100 Neutrophils % 46.0 Lymphocytes % 44.2 Monocytes % 6.8 Eosinophils % 2.5 Basophils % 0.4 Nucleated Red Blood Cells % 0.0 Immature Granulocytes # 0.010 Neutrophils # 3.5 Lymphocytes # 3.4 H Monocytes # 0.5 Eosinophils # 0.2 Basophils # 0.0 Nucleated Red Blood Cells # 0.0 Sodium Level 140 Potassium Level 3.2 L Chloride Level 105 Carbon Dioxide Level 25 Anion Gap 10 Blood Urea Nitrogen 10 Creatinine 0.52 L Est Glomerular Filtrat Rate mL/min > 60 Glucose Level 89 Calcium Level 9.2 Phosphorus Level 2.5 Magnesium Level 1.7 Vancomycin Level Trough 6.6 L Medications Medication Current Medications IV Flush (NS 3 ml) 3 ml PER PROTOCOL IV ; Start 10/16/18 at 23:00 Ondansetron HCl (Zofran Inj) 4 mg Q6H PRN IV NAUSEA/VOMITING; Start 10/16/18 at 23:00 Acetaminophen (Tylenol Tab) 650 mg Q6H PRN PO .PAIN 1-3 OR TEMP Last administered on 10/19/18 15:22; Admin Dose 650 MG; Start 10/16/18 at 23:00 Albuterol/ Ipratropium (Duoneb) 3 ml Q2H RESP THERAPY PRN HHN SHORTNESS OF BREATH; Start 10/16/18 at 23:00 Aspirin (Halfprin) 81 mg DAILY PO Last administered on 10/19/18 08:21; Admin Dose 81 MG; Start 10/17/18 at 09:00 Atorvastatin Calcium (Lipitor) 40 mg QHS PO Last administered on 10/18/18 21:30; Admin Dose 40 MG; Start 10/17/18 at 21:00 Clopidogrel Bisulfate (plaVIX) 75 mg DAILY PO Last administered on 10/19/18 08:21; Admin Dose 75 MG; Start 10/17/18 at 09:00 Docusate Sodium (Colace) 100 mg DAILY PO Last administered on 10/19/18 08:21; Admin Dose 100 MG; Start 10/17/18 at 09:00 Lorazepam (Ativan) 1 mg TID PRN PO ANXIETY Last administered on 10/19/18 15:25; Admin Dose 1 MG; Start 10/16/18 at 23:00 Ondansetron HCl (Zofran Tab) 4 mg Q6H PRN PO NAUSEA AND/OR VOMITING; Start 10/16/18 at 23:00 Sertraline HCl (Zoloft) 25 mg DAILY PO Last administered on 10/19/18 08:21; Admin Dose 25 MG; Start 10/17/18 at 09:00 Ceftriaxone Sodium 50 ml @ 100 mls/hr Q12H IVPB Last administered on 10/19/18 08:21; Admin Dose 100 MLS/HR; Start 10/17/18 at 09:00 Lactobacillus Acidophilus/ Rhamnosus (Culturelle) 1 cap BID PO Last administered on 10/19/18at 08:21; Admin Dose 1 CAP; Start 10/18/18 at 09:00 Vancomycin HCl (Vanco Iv Per Pharmacy) VANCOMYCIN PER PHARMACY PER PROTOCOL XX ; Start 10/17/18 at 21:00 Vancomycin HCl 250 ml @ 125 mls/hr Q12H IVPB Last administered on 10/19/18at 11:42; Admin Dose 125 MLS/HR; Start 10/18/18 at 11:00; Stop 10/19/18 at 18:00 Lansoprazole (Prevacid) 30 mg DAILY@06 PO Last administered on 10/19/18at 06:49; Admin Dose 30 MG; Start 10/19/18 at 06:00 Mupirocin (Bactroban) 1 applic BID TOP Last administered on 10/19/18 08:22; Admin Dose 1 APPLIC; Start 10/18/18 at 21:00 Vancomycin HCl 1.5 gm/Sodium Chloride 250 ml @ 83.333 mls/ hr Q12H IVPB ; Start 10/19/18 at 22:00 Potassium Chloride (Potassium Chloride Pwd/Soln) 40 meq ONCE ONCE GTB ; Start 10/19/18 at 16:00; Stop 10/19/18 at 16:01; Status EDELMIRA MENDOZA NP Oct 19, 2018 16:11
[2018-10-19] MEDS: 1/2 NS + KCL 20 MEQ 1,000 ML IV SCH (17:13)
[2018-10-19 20:00] VITALS: BP 152/83; PULSE 83; RESP 19
[2018-10-19] MEDS: ATORVASTATIN 40 MG TAB PO SCH (20:53)
[2018-10-19] MEDS: VANCOMYCIN HCL 1.5 GM in SOD CHLORIDE 0.9% 250 ML IVPB SCH (21:57)
[2018-10-20 02:00] VITALS: BP 140/89; PULSE 86; RESP 18
[2018-10-20] MEDS: LANSOPRAZOLE 30 MG CAP PO SCH (05:50)
--- NOTE | 2018-10-20 05:52 | PN ---
Date/Time of Note Date/Time of Note DATE: 10/20/18 TIME: 05:52 Assessment/Plan VTE Prophylaxis Risk score (from Ns)>0 risk: 6 SCD applied (from [facility] [place] Yes Pharmacological prophylaxis: NA/contraindicated Pharm contraindication: other (Reported GI bleed.) Lines/Catheters IV Catheter Type (from [facility]): Saline Lock Urinary Cath still in place: No Assessment/Plan Hospital Course SUBJECTIVE: The patient remains confused. The patient remains afebrile. OBJECTIVE: Physical Exam General: Adequately build 68 year-old male lying in bed in no apparent distress. HEENT: Normocephalic, atraumatic. Eyes: Anicteric sclerae, conjunctivae clear. ENT: Nasal septum midline, oral mucosa moist. Neck supple. Respiratory: Bilaterally diminished breath sounds. No use of accessory muscles of respiration. No adventitious breath sounds. Cardiovascular: S1, S2 heard. Regular rate and rhythm. Abdomen: Soft, nontender, and nondistended. Bowel sounds positive in all 4 quadrants. G-tube in place. Genitourinary: Deferred. Extremities: No cyanosis, no clubbing, no edema. Peripheral pulses palpable. Neurologic: The patient is awake and alert. Oriented to self. Left hemiplegia. Skin: Normal skin turgor. No skin rashes. Labs & Vitals per chart ASSESSMENT & PLAN This is a 68-year-old male with a past medical history of stroke with underlying dysphagia, hypertension, dyslipidemia, and chronic encephalopathy who was brought in from a care home facility because of reported abdominal pain and reported hematemesis. The patient was admitted to inpatient setting for further treatment and evaluation. 1. Reported gastrointestinal bleeding. -No episodes of hematemesis. -Monitor H&H closely. -Continue PPI. 2. Gram-positive bacteremia. -Consistent with contamination. -Vancomycin discontinued. 3. Possible underlying pneumonia. -Possible aspiration pneumonia. -Continue antimicrobials. 4. History of stroke. -Continue dual antiplatelet therapy. -Continue statins. 5. Hypokalemia. -Probably secondary to underlying vomiting. -Replete. 6. Dysphagia. -NPO. -Aspiration precautions. -ST evaluation. -Status post video swallow evaluation on 10/20/2018. The patient is at high risk for aspiration. 7. MRSA colonization of the nares. -Continue Bactroban. 8. Fluids, electrolytes, and nutrition. -NPO. -IVFs. 9. DVT prophylaxis. -Bilateral SCDs. 10. Plan. -Continue antimicrobials as per ID. -Await clinical improvement. -Start G-tube feedings. The patient was seen in collaboration with Dr. Bonner. Result Diagram: 10/19/18 0454 10/19/18 0454 Results 24hrs Laboratory Tests Test 10/19/18 10:25 10/20/18 04:56 Vancomycin Level Trough 6.6 L White Blood Count Pending Red Blood Count Pending Hemoglobin Pending Hematocrit Pending Mean Corpuscular Volume Pending Mean Corpuscular Hemoglobin Pending Mean Corpuscular Hemoglobin Concent Pending Red Cell Distribution Width Pending Platelet Count Pending Mean Platelet Volume Pending Exam/Review of Systems Exam Vitals Vital Signs Date Temp Pulse Resp B/P (MAP) Pulse Ox O2 O2 Flow FiO2 Time Delivery Rate 10/20/18 98.0 86 18 140/89 95 02:00 (106) 10/19/18 Room Air 14:33 Intake and Output 10/19/18 10/19/18 10/20/18 1414:59 22:59 06:59 IntakeIntake Total 120 ml 360 ml BalanceBalance 120 ml 360 ml Results Results 24hrs Laboratory Tests Test 10/19/18 10:25 10/20/18 04:56 Vancomycin Level Trough 6.6 L White Blood Count Pending Red Blood Count Pending Hemoglobin Pending Hematocrit Pending Mean Corpuscular Volume Pending Mean Corpuscular Hemoglobin Pending Mean Corpuscular Hemoglobin Concent Pending Red Cell Distribution Width Pending Platelet Count Pending Mean Platelet Volume Pending Medications Medication Current Medications IV Flush (NS 3 ml) 3 ml PER PROTOCOL IV ; Start 10/16/18 at 23:00 Ondansetron HCl (Zofran Inj) 4 mg Q6H PRN IV NAUSEA/VOMITING; Start 10/16/18 at 23:00 Acetaminophen (Tylenol Tab) 650 mg Q6H PRN PO .PAIN 1-3 OR TEMP Last administered on 10/19/18at 20:52; Admin Dose 650 MG; Start 10/16/18 at 23:00 Albuterol/ Ipratropium (Duoneb) 3 ml Q2H RESP THERAPY PRN HHN SHORTNESS OF BREATH; Start 10/16/18 at 23:00 Aspirin (Halfprin) 81 mg DAILY PO Last administered on 10/19/18 08:21; Admin Dose 81 MG; Start 10/17/18 at 09:00 Atorvastatin Calcium (Lipitor) 40 mg QHS PO Last administered on 10/19/18 20:53; Admin Dose 40 MG; Start 10/17/18 at 21:00 Clopidogrel Bisulfate (plaVIX) 75 mg DAILY PO Last administered on 10/19/18 08:21; Admin Dose 75 MG; Start 10/17/18 at 09:00 Docusate Sodium (Colace) 100 mg DAILY PO Last administered on 10/19/18 08:21; Admin Dose 100 MG; Start 10/17/18 at 09:00 Lorazepam (Ativan) 1 mg TID PRN PO ANXIETY Last administered on 10/19/18 20:53; Admin Dose 1 MG; Start 10/16/18 at 23:00 Ondansetron HCl (Zofran Tab) 4 mg Q6H PRN PO NAUSEA AND/OR VOMITING; Start 10/16/18 at 23:00 Sertraline HCl (Zoloft) 25 mg DAILY PO Last administered on 10/19/18 08:21; Admin Dose 25 MG; Start 10/17/18 at 09:00 Ceftriaxone Sodium 50 ml @ 100 mls/hr Q12H IVPB Last administered on 10/19/18 20:52; Admin Dose 100 MLS/HR; Start 10/17/18 at 09:00 Lactobacillus Acidophilus/ Rhamnosus (Culturelle) 1 cap BID PO Last administered on 10/19/18 20:53; Admin Dose 1 CAP; Start 10/18/18 at 09:00 Vancomycin HCl (Vanco Iv Per Pharmacy) VANCOMYCIN PER PHARMACY PER PROTOCOL XX ; Start 10/17/18 at 21:00 Lansoprazole (Prevacid) 30 mg DAILY@06 PO Last administered on 10/20/18 05:50; Admin Dose 30 MG; Start 10/19/18 at 06:00 Mupirocin (Bactroban) 1 applic BID TOP Last administered on 10/19/18 20:53; Admin Dose 1 APPLIC; Start 10/18/18 at 21:00 Vancomycin HCl 1.5 gm/Sodium Chloride 250 ml @ 83.333 mls/ hr Q12H IVPB Last administered on 4/16/19at 21:57; Admin Dose 83.333 MLS/HR; Start 10/19/18 at 22:00 Potassium Chloride/Sodium Chloride 1,000 ml @ 60 mls/hr [id number] IV Last administered on 10/19/18at 17:13; Admin Dose 60 MLS/HR; Start 10/19/18 at 16:30 EDELMIRA HERZOG NP Oct 20, 2018 05:52
[2018-10-20 08:00] VITALS: BP 170/90; PULSE 86; RESP 18
[2018-10-20 08:30] VITALS: BP 165/84
[2018-10-20] MEDS: LACTOBACILLUS RHAMNOSUS CAP PO SCH ×2 (09:00→09:44)
[2018-10-20] MEDS: ASPIRIN (EC) 81 MG TAB PO SCH ×2 (09:00→09:44)
[2018-10-20] MEDS: DOCUSATE SODIUM 100 MG CAP PO SCH ×2 (09:00→09:43)
[2018-10-20] MEDS: 1/2 NS + KCL 20 MEQ 1,000 ML IV SCH ×2 (09:10→18:15)
[2018-10-20] MEDS: CEFTRIAXONE 1 GM/50 ML (PMX) 50 ML IVPB SCH ×2 (09:41→21:20)
[2018-10-20] MEDS: CLOPIDOGREL 75 MG TAB PO SCH (09:44)
[2018-10-20] MEDS: SERTRALINE 50 MG TAB PO SCH (09:44)
[2018-10-20] MEDS: MUPIROCIN 2% 22 GM OINT TOP SCH ×3 (09:45→23:29)
[2018-10-20] MEDS: VANCOMYCIN HCL 1.5 GM in SOD CHLORIDE 0.9% 250 ML IVPB SCH (11:10)
[2018-10-20] MEDS ORDERED: BARIUM SULFATE 135 ML (E-Z HD) PO ONE (12:42)
[2018-10-20 14:00] VITALS: BP 150/90; PULSE 87; RESP 20
[2018-10-20] MEDS: ASPIRIN 81 MG TAB GTB SCH (14:01)
--- NOTE | 2018-10-20 15:34 | CONS ---
Assessment/Plan Assessment/Plan Hospital Course (Demo Recall) Patient is awake confused in no distress. No fevers overnight. WBC 7.7, no shift no bands. BUN 5 creatinine 0.52. Microbiology: Blood culture on admission grew coag negative staph suspicious, repeat blood cultures negative. CT of the abdomen and pelvis on admission revealed small bowel ileus, NG tube in place with balloon in the gastric lumen. Chest x-ray revealed new right basilar opacity possibly developing infiltrate Antimicrobials: Vancomycin, Rocephin Physical examination: Well-developed well-nourished chronically ill-appearing elderly man who is awake in no distress. Head atraumatic normocephalic sclera nonicteric neck is supple chest rise symmetrical breath sounds diminished bases. Heart: S1-S2. Abdomen soft bowel sounds present. Extremities without cyanosis. Assessment: 1. Coag negative staph bacteremia consistent with contaminant 2. Pneumonia possibly aspiration 3. Dysphagia status post PEG 4. History of CVA 5. MRSA colonization of the naris Plan: Patient remained stable, change vancomycin to doxycycline, continue Rocephin, repeat chest x-ray in a.m. Consultation Date/Type/Reason Admit Date/Time Oct 16, 2018 at 20:02 Initial Consult Date Type of Consult id Date/Time of Note DATE: 10/20/18 TIME: 15:30 Exam/Review of Systems Exam Vitals Vital Signs Date Temp Pulse Resp B/P (MAP) Pulse Ox O2 O2 Flow FiO2 Time Delivery Rate 10/20/18 165/84 08:30 (111) 10/20/18 98.6 86 18 94 08:00 10/19/18 Room Air 14:33 Intake and Output 10/19/18 10/19/18 10/20/18 1515:00 23:00 07:00 IntakeIntake Total 120 ml 410 ml 670 ml OutputOutput Total 1 ml BalanceBalance 120 ml 410 ml 669 ml Results Result Diagram: 10/20/18 0456 10/20/18 0456 Results 24hrs Laboratory Tests Test 10/20/18 04:56 10/20/18 10:00 White Blood Count 7.7 Red Blood Count 5.09 Hemoglobin 14.0 Hematocrit 41.0 L Mean Corpuscular Volume 80.6 L Mean Corpuscular Hemoglobin 27.5 L Mean Corpuscular Hemoglobin Concent 34.1 Red Cell Distribution Width 15.1 H Platelet Count 280 Mean Platelet Volume 10.1 Immature Granulocytes % 0.300 Neutrophils % 56.5 Lymphocytes % 33.9 Monocytes % 7.1 Eosinophils % 1.8 Basophils % 0.4 Nucleated Red Blood Cells % 0.0 Immature Granulocytes # 0.020 Neutrophils # 4.4 Lymphocytes # 2.6 Monocytes # 0.6 Eosinophils # 0.1 Basophils # 0.0 Nucleated Red Blood Cells # 0.0 Sodium Level 140 Potassium Level 3.7 Chloride Level 108 Carbon Dioxide Level 23 Anion Gap 9 Blood Urea Nitrogen 5 L Creatinine 0.52 L Est Glomerular Filtrat Rate mL/min > 60 Glucose Level 89 Calcium Level 9.4 Phosphorus Level 2.2 L Magnesium Level 1.6 L Stool Occult Blood NEGATIVE Medications Medication Current Medications IV Flush (NS 3 ml) 3 ml PER PROTOCOL IV ; Start 10/16/18 at 23:00 Ondansetron HCl (Zofran Inj) 4 mg Q6H PRN IV NAUSEA/VOMITING; Start 10/16/18 at 23:00 Albuterol/ Ipratropium (Duoneb) 3 ml Q2H RESP THERAPY PRN HHN SHORTNESS OF BREATH; Start 10/16/18 at 23:00 Ondansetron HCl (Zofran Tab) 4 mg Q6H PRN PO NAUSEA AND/OR VOMITING; Start 10/16/18 at 23:00 Ceftriaxone Sodium 50 ml @ 100 mls/hr Q12H IVPB Last administered on 10/20/18at 09:41; Admin Dose 100 MLS/HR; Start 10/17/18 at 09:00 Lactobacillus Acidophilus/ Rhamnosus (Culturelle) 1 cap BID PO Last administered on 10/19/18at 20:53; Admin Dose 1 CAP; Start 10/18/18 at 09:00 Vancomycin HCl (Vanco Iv Per Pharmacy) VANCOMYCIN PER PHARMACY PER PROTOCOL XX ; Start 10/17/18 at 21:00 Lansoprazole (Prevacid) 30 mg DAILY@06 PO Last administered on 10/20/18at 05:50; Admin Dose 30 MG; Start 10/19/18 at 06:00 Mupirocin (Bactroban) 1 applic BID TOP Last administered on 10/20/18at 09:45; Admin Dose 1 APPLIC; Start 10/18/18 at 21:00 Vancomycin HCl 1.5 gm/Sodium Chloride 250 ml @ 83.333 mls/ hr Q12H IVPB Last administered on 10/20/18at 11:10; Admin Dose 83.333 MLS/HR; Start 10/19/18 at 22:00 Potassium Chloride/Sodium Chloride 1,000 ml @ 60 mls/hr [id number] IV Last administered on 10/19/18at 17:13; Admin Dose 60 MLS/HR; Start 10/19/18 at 16:30 Acetaminophen (Tylenol Tab) 650 mg Q6H PRN GTB .PAIN 1-3 OR TEMP; Start 10/20/18 at 17:00 Atorvastatin Calcium (Lipitor) 40 mg QHS GTB ; Start 10/20/18 at 21:00 Clopidogrel Bisulfate (plaVIX) 75 mg DAILY GTB ; Start 10/21/18 at 09:00 Sertraline HCl (Zoloft) 25 mg DAILY GTB ; Start 10/21/18 at 09:00 Aspirin (Aspirin) 81 mg DAILY GTB Last administered on 10/20/18at 14:01; Admin Dose 81 MG; Start 10/20/18 at 12:00 Lorazepam (Ativan) 1 mg Q6H PRN IV ANXIETY; Start 10/20/18 at 12:00 LUIS HOFFMAN NP Oct 20, 2018 15:34
[2018-10-20] MEDS: ACETAMINOPHEN 325 MG TAB GTB PRN (16:03)
[2018-10-20 19:53] VITALS: BP 145/89; PULSE 84; RESP 17
[2018-10-20] MEDS ORDERED: DOXYCYCLINE 100 MG TAB PO SCH (21:00)
[2018-10-20] MEDS: DOXYCYCLINE 100 MG TAB GTB SCH (21:20)
[2018-10-20] MEDS: ATORVASTATIN 40 MG TAB GTB SCH (21:20)
[2018-10-20] MEDS: LACTOBACILLUS RHAMNOSUS CAP GTB SCH (21:20)
[2018-10-21] MEDS: 1/2 NS + KCL 20 MEQ 1,000 ML IV SCH ×2 (01:47→16:30)
[2018-10-21 02:17] VITALS: BP 176/99; PULSE 74; RESP 18
[2018-10-21] MEDS: LANSOPRAZOLE 30 MG CAP PO SCH (05:04)
[2018-10-21 06:40] VITALS: BP 152/85; PULSE 75
[2018-10-21 08:00] VITALS: BP 166/86; PULSE 84; RESP 20
[2018-10-21] MEDS: CEFTRIAXONE 1 GM/50 ML (PMX) 50 ML IVPB SCH ×2 (09:56→21:30)
[2018-10-21] MEDS: ASPIRIN 81 MG TAB GTB SCH (09:56)
[2018-10-21] MEDS: DOXYCYCLINE 100 MG TAB GTB SCH ×2 (09:56→21:30)
[2018-10-21] MEDS: LACTOBACILLUS RHAMNOSUS CAP GTB SCH ×2 (09:56→21:30)
[2018-10-21] MEDS: MUPIROCIN 2% 22 GM OINT TOP SCH ×2 (09:56→21:30)
[2018-10-21] MEDS: CLOPIDOGREL 75 MG TAB GTB SCH (09:57)
[2018-10-21] MEDS: SERTRALINE 50 MG TAB GTB SCH (09:57)
[2018-10-21] MEDS: LISINOPRIL 5 MG TAB GTB SCH (11:35)
--- NOTE | 2018-10-21 11:50 | CONS ---
Assessment/Plan Assessment/Plan Hospital Course (Demo Recall) No acute changes, looks comfortable, no fevers Microbiology: Blood culture on admission grew coag negative staph, repeat blood cultures negative. CT of the abdomen and pelvis on admission revealed small bowel ileus, NG tube in place with balloon in the gastric lumen. Chest x-ray revealed new right basilar opacity possibly developing infiltrate Antimicrobials: Doxycycline Rocephin Physical examination: Well-developed well-nourished chronically ill-appearing elderly man who is awake in no distress. Head atraumatic normocephalic sclera nonicteric neck is supple chest rise symmetrical breath sounds diminished bases. Heart: S1-S2. Abdomen soft bowel sounds present. Extremities without cyanosis. Assessment: 1. Coag negative staph bacteremia consistent with contaminant 2. Pneumonia possibly aspiration 3. Dysphagia status post PEG 4. History of CVA 5. MRSA colonization of the nares Plan: Patient remained stable, continue abx, f/u repeat chest x-ray Consultation Date/Type/Reason Admit Date/Time Oct 16, 2018 at 20:02 Initial Consult Date Type of Consult id Date/Time of Note DATE: 10/21/18 TIME: 11:48 Exam/Review of Systems Exam Vitals Vital Signs Date Temp Pulse Resp B/P (MAP) Pulse Ox O2 O2 Flow FiO2 Time Delivery Rate 10/21/18 98.8 84 20 166/86 94 08:00 (112) 10/19/18 Room Air 14:33 Intake and Output 10/20/18 10/20/18 10/21/18 1515:00 23:00 07:00 IntakeIntake Total 300 ml 570 ml 930 ml BalanceBalance 300 ml 570 ml 930 ml Results Result Diagram: 10/21/18 0614 10/21/18 0614 Results 24hrs Laboratory Tests Test 10/21/18 06:14 White Blood Count 8.0 Red Blood Count 5.12 Hemoglobin 14.2 Hematocrit 41.1 L Mean Corpuscular Volume 80.3 L Mean Corpuscular Hemoglobin 27.7 L Mean Corpuscular Hemoglobin Concent 34.5 Red Cell Distribution Width 15.2 H Platelet Count 272 Mean Platelet Volume 10.0 Immature Granulocytes % 0.200 Neutrophils % 44.3 Lymphocytes % 45.3 Monocytes % 7.3 Eosinophils % 2.4 Basophils % 0.5 Nucleated Red Blood Cells % 0.0 Immature Granulocytes # 0.020 Neutrophils # 3.6 Lymphocytes # 3.6 H Monocytes # 0.6 Eosinophils # 0.2 Basophils # 0.0 Nucleated Red Blood Cells # 0.0 Sodium Level 137 Potassium Level 3.5 Chloride Level 107 Carbon Dioxide Level 22 Anion Gap 8 Blood Urea Nitrogen 4 L Creatinine 0.50 L Est Glomerular Filtrat Rate mL/min > 60 Glucose Level 94 Calcium Level 9.7 Phosphorus Level 3.0 Magnesium Level 1.7 Medications Medication Current Medications IV Flush (NS 3 ml) 3 ml PER PROTOCOL IV ; Start 10/16/18 at 23:00 Ondansetron HCl (Zofran Inj) 4 mg Q6H PRN IV NAUSEA/VOMITING; Start 10/16/18 at 23:00 Albuterol/ Ipratropium (Duoneb) 3 ml Q2H RESP THERAPY PRN HHN SHORTNESS OF BREATH; Start 10/16/18 at 23:00 Ceftriaxone Sodium 50 ml @ 100 mls/hr Q12H IVPB Last administered on 10/21/18 09:56; Admin Dose 100 MLS/HR; Start 10/17/18 at 09:00 Lansoprazole (Prevacid) 30 mg DAILY@06 PO Last administered on 10/21/18 05:04; Admin Dose 30 MG; Start 10/19/18 at 06:00 Mupirocin (Bactroban) 1 applic BID TOP Last administered on 10/21/18 09:56; Admin Dose 1 APPLIC; Start 10/18/18 at 21:00 Potassium Chloride/Sodium Chloride 1,000 ml @ 60 mls/hr [id number] IV Last administered on 10/20/18at 18:15; Admin Dose 60 MLS/HR; Start 10/19/18 at 16:30 Acetaminophen (Tylenol Tab) 650 mg Q6H PRN GTB .PAIN 1-3 OR TEMP Last administered on 10/20/18 16:03; Admin Dose 650 MG; Start 10/20/18 at 17:00 Atorvastatin Calcium (Lipitor) 40 mg QHS GTB Last administered on 10/20/18 21:20; Admin Dose 40 MG; Start 10/20/18 at 21:00 Clopidogrel Bisulfate (plaVIX) 75 mg DAILY GTB Last administered on 10/21/18at 09:57; Admin Dose 75 MG; Start 10/21/18 at 09:00 Sertraline HCl (Zoloft) 25 mg DAILY GTB Last administered on 10/21/18 09:57; Admin Dose 25 MG; Start 10/21/18 at 09:00 Aspirin (Aspirin) 81 mg DAILY GTB Last administered on 10/21/18 09:56; Admin Dose 81 MG; Start 10/20/18 at 12:00 Lorazepam (Ativan) 1 mg Q6H PRN IV ANXIETY; Start 10/20/18 at 12:00 Doxycycline Hyclate (Vibramycin) 100 mg BID GTB Last administered on 10/21/18 09:56; Admin Dose 100 MG; Start 10/20/18 at 21:00 Lactobacillus Acidophilus/ Rhamnosus (Culturelle) 1 cap BID GTB Last administered on 10/21/18 09:56; Admin Dose 1 CAP; Start 10/20/18 at 21:00 Lisinopril (Zestril) 5 mg DAILY GTB Last administered on 10/21/18at 11:35; Admin Dose 5 MG; Start 10/21/18 at 11:00 LUIS HOFFMAN NP Oct 21, 2018 11:50
[2018-10-21 14:00] VITALS: BP 159/56; PULSE 84; RESP 18
--- NOTE | 2018-10-21 14:05 | PN ---
Date/Time of Note Date/Time of Note DATE: 10/21/18 TIME: 14:03 Assessment/Plan VTE Prophylaxis Risk score (from Ns)>0 risk: 6 SCD applied (from Ns): Yes Pharmacological prophylaxis: NA/contraindicated Pharm contraindication: anticoag not tolerated Lines/Catheters IV Catheter Type (from [facility]): Peripheral IV Urinary Cath still in place: No Assessment/Plan Hospital Course SUBJECTIVE: The patient remains confused. The patient remains afebrile. OBJECTIVE: Physical Exam General: Adequately build 68 year-old male lying in bed in no apparent distress. HEENT: Normocephalic, atraumatic. Eyes: Anicteric sclerae, conjunctivae clear. ENT: Nasal septum midline, oral mucosa moist. Neck supple. Respiratory: Bilaterally diminished breath sounds. No use of accessory muscles of respiration. No adventitious breath sounds. Cardiovascular: S1, S2 heard. Regular rate and rhythm. Abdomen: Soft, nontender, and nondistended. Bowel sounds positive in all 4 quadrants. G-tube in place. Genitourinary: Deferred. Extremities: No cyanosis, no clubbing, no edema. Peripheral pulses palpable. Neurologic: The patient is awake and alert. Oriented to self. Left hemiplegia. Skin: Normal skin turgor. No skin rashes. Labs & Vitals per chart ASSESSMENT & PLAN This is a 68-year-old male with a past medical history of stroke with underlying dysphagia, hypertension, dyslipidemia, and chronic encephalopathy who was brought in from a senior care facility because of reported abdominal pain and reported hematemesis. The patient was admitted to inpatient setting for further treatment and evaluation. 1. Reported gastrointestinal bleeding. -No episodes of hematemesis. -Monitor H&H closely. -Continue PPI. 2. Gram-positive bacteremia. -Consistent with contamination. -Vancomycin discontinued. 3. Possible underlying pneumonia. -Possible aspiration pneumonia. -Continue antimicrobials. 4. History of stroke. -Continue dual antiplatelet therapy. -Continue statins. 5. Hypokalemia. -Probably secondary to underlying vomiting. -Replete. 6. Dysphagia. -NPO. -Aspiration precautions. -ST evaluation. -Status post video swallow evaluation on 10/20/2018. The patient is at high risk for aspiration. 7. MRSA colonization of the nares. -Continue Bactroban. 8. Fluids, electrolytes, and nutrition. -NPO. -IVFs. -G-tube feeds. 9. DVT prophylaxis. -Bilateral SCDs. 10. Plan. -Continue antimicrobials as per ID. -Await clinical improvement. -Up-titrate G-tube feedings. If able to tolerate G-tube feedings, will discharge the patient back to a senior care facility. The patient was seen in collaboration with Dr. Bonner. Result Diagram: 10/21/18 0614 10/21/18 0614 Results 24hrs Laboratory Tests Test 10/21/18 06:14 White Blood Count 8.0 Red Blood Count 5.12 Hemoglobin 14.2 Hematocrit 41.1 L Mean Corpuscular Volume 80.3 L Mean Corpuscular Hemoglobin 27.7 L Mean Corpuscular Hemoglobin Concent 34.5 Red Cell Distribution Width 15.2 H Platelet Count 272 Mean Platelet Volume 10.0 Immature Granulocytes % 0.200 Neutrophils % 44.3 Lymphocytes % 45.3 Monocytes % 7.3 Eosinophils % 2.4 Basophils % 0.5 Nucleated Red Blood Cells % 0.0 Immature Granulocytes # 0.020 Neutrophils # 3.6 Lymphocytes # 3.6 H Monocytes # 0.6 Eosinophils # 0.2 Basophils # 0.0 Nucleated Red Blood Cells # 0.0 Sodium Level 137 Potassium Level 3.5 Chloride Level 107 Carbon Dioxide Level 22 Anion Gap 8 Blood Urea Nitrogen 4 L Creatinine 0.50 L Est Glomerular Filtrat Rate mL/min > 60 Glucose Level 94 Calcium Level 9.7 Phosphorus Level 3.0 Magnesium Level 1.7 Exam/Review of Systems Exam Vitals Vital Signs Date Temp Pulse Resp B/P (MAP) Pulse Ox O2 O2 Flow FiO2 Time Delivery Rate 10/21/18 98.8 84 20 166/86 94 08:00 (112) 10/19/18 Room Air 14:33 Intake and Output 10/20/18 10/20/18 10/21/18 1515:00 23:00 07:00 IntakeIntake Total 300 ml 570 ml 930 ml BalanceBalance 300 ml 570 ml 930 ml Results Results 24hrs Laboratory Tests Test 10/21/18 06:14 White Blood Count 8.0 Red Blood Count 5.12 Hemoglobin 14.2 Hematocrit 41.1 L Mean Corpuscular Volume 80.3 L Mean Corpuscular Hemoglobin 27.7 L Mean Corpuscular Hemoglobin Concent 34.5 Red Cell Distribution Width 15.2 H Platelet Count 272 Mean Platelet Volume 10.0 Immature Granulocytes % 0.200 Neutrophils % 44.3 Lymphocytes % 45.3 Monocytes % 7.3 Eosinophils % 2.4 Basophils % 0.5 Nucleated Red Blood Cells % 0.0 Immature Granulocytes # 0.020 Neutrophils # 3.6 Lymphocytes # 3.6 H Monocytes # 0.6 Eosinophils # 0.2 Basophils # 0.0 Nucleated Red Blood Cells # 0.0 Sodium Level 137 Potassium Level 3.5 Chloride Level 107 Carbon Dioxide Level 22 Anion Gap 8 Blood Urea Nitrogen 4 L Creatinine 0.50 L Est Glomerular Filtrat Rate mL/min > 60 Glucose Level 94 Calcium Level 9.7 Phosphorus Level 3.0 Magnesium Level 1.7 Medications Medication Current Medications IV Flush (NS 3 ml) 3 ml PER PROTOCOL IV ; Start 10/16/18 at 23:00 Ondansetron HCl (Zofran Inj) 4 mg Q6H PRN IV NAUSEA/VOMITING; Start 10/16/18 at 23:00 Albuterol/ Ipratropium (Duoneb) 3 ml Q2H RESP THERAPY PRN HHN SHORTNESS OF BREATH; Start 10/16/18 at 23:00 Ceftriaxone Sodium 50 ml @ 100 mls/hr Q12H IVPB Last administered on 10/21/18 09:56; Admin Dose 100 MLS/HR; Start 10/17/18 at 09:00 Lansoprazole (Prevacid) 30 mg DAILY@06 PO Last administered on 10/21/18 05:04; Admin Dose 30 MG; Start 10/19/18 at 06:00 Mupirocin (Bactroban) 1 applic BID TOP Last administered on 10/21/18 09:56; Admin Dose 1 APPLIC; Start 10/18/18 at 21:00 Potassium Chloride/Sodium Chloride 1,000 ml @ 60 mls/hr [id number] IV Last administered on 10/20/18 18:15; Admin Dose 60 MLS/HR; Start 10/19/18 at 16:30 Acetaminophen (Tylenol Tab) 650 mg Q6H PRN GTB .PAIN 1-3 OR TEMP Last administered on 10/20/18 16:03; Admin Dose 650 MG; Start 10/20/18 at 17:00 Atorvastatin Calcium (Lipitor) 40 mg QHS GTB Last administered on 10/20/18 21:20; Admin Dose 40 MG; Start 10/20/18 at 21:00 Clopidogrel Bisulfate (plaVIX) 75 mg DAILY GTB Last administered on 10/21/18 09:57; Admin Dose 75 MG; Start 10/21/18 at 09:00 Sertraline HCl (Zoloft) 25 mg DAILY GTB Last administered on 10/21/18 09:57; Admin Dose 25 MG; Start 10/21/18 at 09:00 Aspirin (Aspirin) 81 mg DAILY GTB Last administered on 10/21/18 09:56; Admin Dose 81 MG; Start 10/20/18 at 12:00 Lorazepam (Ativan) 1 mg Q6H PRN IV ANXIETY; Start 10/20/18 at 12:00 Doxycycline Hyclate (Vibramycin) 100 mg BID GTB Last administered on 10/21/18 09:56; Admin Dose 100 MG; Start 10/20/18 at 21:00 Lactobacillus Acidophilus/ Rhamnosus (Culturelle) 1 cap BID GTB Last a dministered on 10/21/18 09:56; Admin Dose 1 CAP; Start 10/20/18 at 21:00 Lisinopril (Zestril) 5 mg DAILY GTB Last administered on 10/21/18 11:35; Admin Dose 5 MG; Start 10/21/18 at 11:00 EDELMIRA HERZOG NP Oct 21, 2018 14:05
[2018-10-21 20:49] VITALS: BP 142/91; PULSE 73; RESP 16
[2018-10-21] MEDS: ATORVASTATIN 40 MG TAB GTB SCH (21:30)
[2018-10-21] MEDS: LORAZEPAM 2 MG INJ IV PRN (22:01)
[2018-10-22] VITALS (10 sets, daily range): BP systolic 116–179; BP diastolic 76–99; PULSE 64–82; RESP 17–18
[2018-10-22] MEDS: hydrALAzine 20 MG INJ IV PRN (02:42)
[2018-10-22] MEDS: LANSOPRAZOLE 30 MG CAP PO SCH (05:53)
[2018-10-22] MEDS: ACETAMINOPHEN 325 MG TAB GTB PRN ×2 (06:06→23:03)
[2018-10-22] MEDS: DOXYCYCLINE 100 MG TAB GTB SCH ×2 (09:13→21:10)
[2018-10-22] MEDS: CEFTRIAXONE 1 GM/50 ML (PMX) 50 ML IVPB SCH ×2 (09:13→21:10)
[2018-10-22] MEDS: ASPIRIN 81 MG TAB GTB SCH (09:14)
[2018-10-22] MEDS: LISINOPRIL 5 MG TAB GTB SCH (09:14)
[2018-10-22] MEDS: MUPIROCIN 2% 22 GM OINT TOP SCH ×2 (09:14→21:11)
[2018-10-22] MEDS: CLOPIDOGREL 75 MG TAB GTB SCH (09:15)
[2018-10-22] MEDS: SERTRALINE 50 MG TAB GTB SCH (09:15)
[2018-10-22] MEDS: LACTOBACILLUS RHAMNOSUS CAP GTB SCH ×2 (09:15→21:10)
[2018-10-22] MEDS: 1/2 NS + KCL 20 MEQ 1,000 ML IV SCH (10:47)
[2018-10-22] MEDS ORDERED: MAGNESIUM SULFATE 2 GM/50 ML 50 ML IVPB ONE (11:00)
[2018-10-22] MEDS ORDERED: POTASSIUM PHOSPHATE 15 MM in SOD CHLORIDE 0.9% 250 ML IVPB ONE (11:00)
--- NOTE | 2018-10-22 13:15 | CONS ---
Assessment/Plan Assessment/Plan Hospital Course (Demo Recall) No acute changes, looks comfortable, no fevers Microbiology: Blood culture on admission grew coag negative staph, repeat blood cultures negative. CT of the abdomen and pelvis on admission revealed small bowel ileus, NG tube in place with balloon in the gastric lumen. Chest x-ray revealed new right basilar opacity possibly developing infiltrate Antimicrobials: Doxycycline Rocephin Physical examination: Well-developed well-nourished chronically ill-appearing elderly man who is awake in no distress. Head atraumatic normocephalic sclera nonicteric neck is supple chest rise symmetrical breath sounds diminished bases. Heart: S1-S2. Abdomen soft bowel sounds present. Extremities without cyanosis. Assessment: 1. Coag negative staph bacteremia consistent with contaminant 2. Pneumonia possibly aspiration 3. Dysphagia status post PEG 4. History of CVA 5. MRSA colonization of the nares Plan: Patient remained stable, continue abx for couple more days Consultation Date/Type/Reason Admit Date/Time Oct 16, 2018 at 20:02 Initial Consult Date Type of Consult id Date/Time of Note DATE: 10/22/18 TIME: 13:15 Exam/Review of Systems Exam Vitals Vital Signs Date Temp Pulse Resp B/P (MAP) Pulse Ox O2 O2 Flow FiO2 Time Delivery Rate 10/22/18 97.7 68 17 145/90 95 Room Air 10:00 (108) Intake and Output 10/21/18 10/21/18 10/22/18 1515:00 23:00 07:00 IntakeIntake Total 50 ml 810 ml 1360 ml BalanceBalance 50 ml 810 ml 1360 ml Results Result Diagram: 10/22/18 0528 10/22/18 0527 Results 24hrs Laboratory Tests Test 10/22/18 05:27 10/22/18 05:28 Sodium Level 141 Potassium Level 3.3 L Chloride Level 105 Carbon Dioxide Level 21 Anion Gap 15 #H Blood Urea Nitrogen 6 L Creatinine 0.51 L Est Glomerular Filtrat Rate mL/min > 60 Glucose Level 103 Calcium Level 9.6 White Blood Count 8.6 Red Blood Count 5.21 Hemoglobin 14.5 Hematocrit 42.0 Mean Corpuscular Volume 80.6 L Mean Corpuscular Hemoglobin 27.8 L Mean Corpuscular Hemoglobin Concent 34.5 Red Cell Distribution Width 15.5 H Platelet Count 286 Mean Platelet Volume 10.2 Immature Granulocytes % 0.200 Neutrophils % 52.7 Lymphocytes % 38.3 Monocytes % 6.8 Eosinophils % 1.7 Basophils % 0.3 Nucleated Red Blood Cells % 0.0 Immature Granulocytes # 0.020 Neutrophils # 4.5 Lymphocytes # 3.3 H Monocytes # 0.6 Eosinophils # 0.2 Basophils # 0.0 Nucleated Red Blood Cells # 0.0 Phosphorus Level 2.3 L Magnesium Level 1.6 L Medications Medication Current Medications IV Flush (NS 3 ml) 3 ml PER PROTOCOL IV ; Start 10/16/18 at 23:00 Ondansetron HCl (Zofran Inj) 4 mg Q6H PRN IV NAUSEA/VOMITING; Start 10/16/18 at 23:00 Albuterol/ Ipratropium (Duoneb) 3 ml Q2H RESP THERAPY PRN HHN SHORTNESS OF BREATH; Start 10/16/18 at 23:00 Ceftriaxone Sodium 50 ml @ 100 mls/hr Q12H IVPB Last administered on 10/22/18 09:13; Admin Dose 100 MLS/HR; Start 10/17/18 at 09:00 Lansoprazole (Prevacid) 30 mg DAILY@06 PO Last administered on 10/22/18 05:53; Admin Dose 30 MG; Start 10/19/18 at 06:00 Mupirocin (Bactroban) 1 applic BID TOP Last administered on 10/22/18 09:14; Admin Dose 1 APPLIC; Start 10/18/18 at 21:00 Potassium Chloride/Sodium Chloride 1,000 ml @ 60 mls/hr [id number] IV Last administered on 10/22/18 10:47; Admin Dose 60 MLS/HR; Start 10/19/18 at 16:30 Acetaminophen (Tylenol Tab) 650 mg Q6H PRN GTB .PAIN 1-3 OR TEMP Last administered on 10/22/18 06:06; Admin Dose 650 MG; Start 10/20/18 at 17:00 Atorvastatin Calcium (Lipitor) 40 mg QHS GTB Last administered on 10/21/18 21:30; Admin Dose 40 MG; Start 10/20/18 at 21:00 Clopidogrel Bisulfate (plaVIX) 75 mg DAILY GTB Last administered on 10/22/18 09:15; Admin Dose 75 MG; Start 10/21/18 at 09:00 Sertraline HCl (Zoloft) 25 mg DAILY GTB Last administered on 10/22/18 09:15; Admin Dose 25 MG; Start 10/21/18 at 09:00 Aspirin (Aspirin) 81 mg DAILY GTB Last administered on 10/22/18 09:14; Admin Dose 81 MG; Start 10/20/18 at 12:00 Lorazepam (Ativan) 1 mg Q6H PRN IV ANXIETY Last administered on 10/21/18 22:01; Admin Dose 1 MG; Start 10/20/18 at 12:00 Doxycycline Hyclate (Vibramycin) 100 mg BID GTB Last administered on 10/22/18 09:13; Admin Dose 100 MG; Start 10/20/18 at 21:00 Lactobacillus Acidophilus/ Rhamnosus (Culturelle) 1 cap BID GTB Last administered on 10/22/18 09:15; Admin Dose 1 CAP; Start 10/20/18 at 21:00 Lisinopril (Zestril) 5 mg DAILY GTB Last administered on 10/22/18 09:14; Admin Dose 5 MG; Start 10/21/18 at 11:00 Hydralazine HCl (Apresoline) 10 mg Q4H PRN IV ELEVATED SYSTOLIC BP Last administered on 10/22/18at 02:42; Admin Dose 10 MG; Start 10/22/18 at 03:00 Potassium Phosphate 15 mm/ Sodium Chloride 255 ml @ 63.75 mls/ hr ONCE ONCE IVPB Last administered on 10/22/18at 12:37; Admin Dose 63.75 MLS/HR; Start 10/22/18 at 11:00; Stop 10/22/18 at 14:59 LUIS HOFFMAN NP Oct 22, 2018 13:15
--- NOTE | 2018-10-22 15:31 | PN ---
Date/Time of Note Date/Time of Note DATE: 10/22/18 TIME: 15:30 Assessment/Plan VTE Prophylaxis Risk score (from Ns)>0 risk: 7 SCD applied (from Ns): Yes Pharmacological prophylaxis: NA/contraindicated Pharm contraindication: anticoag not tolerated Lines/Catheters IV [facility]from [facility]): Peripheral IV Urinary Cath still in place: No Assessment/Plan Hospital Course SUBJECTIVE: The patient remains confused. The patient remains afebrile. OBJECTIVE: Physical Exam General: Adequately build 68 year-old male lying in bed in no apparent distress. HEENT: Normocephalic, atraumatic. Eyes: Anicteric sclerae, conjunctivae clear. ENT: Nasal septum midline, oral mucosa moist. Neck supple. Respiratory: Bilaterally diminished breath sounds. No use of accessory muscles of respiration. No adventitious breath sounds. Cardiovascular: S1, S2 heard. Regular rate and rhythm. Abdomen: Soft, nontender, and nondistended. Bowel sounds positive in all 4 quadrants. G-tube in place. Genitourinary: Deferred. Extremities: No cyanosis, no clubbing, no edema. Peripheral pulses palpable. Neurologic: The patient is awake and alert. Oriented to self. Left hemiplegia. Skin: Normal skin turgor. No skin rashes. Labs & Vitals per chart ASSESSMENT & PLAN This is a 68-year-old male with a past medical history of stroke with underlying dysphagia, hypertension, dyslipidemia, and chronic encephalopathy who was brought in from a halfway facility because of reported abdominal pain and reported hematemesis. The patient was admitted to inpatient setting for further treatment and evaluation. 1. Reported gastrointestinal bleeding. -No episodes of hematemesis. -Monitor H&H closely. -Continue PPI. 2. Gram-positive bacteremia. -Consistent with contamination. -Vancomycin discontinued. 3. Possible underlying pneumonia. -Possible aspiration pneumonia. -Continue antimicrobials. 4. History of stroke. -Continue dual antiplatelet therapy. -Continue statins. 5. Hypokalemia. -Probably secondary to underlying vomiting. -Replete. 6. Dysphagia. -NPO. -Aspiration precautions. -ST evaluation. -Status post video swallow evaluation on 10/20/2018. The patient is at high risk for aspiration. 7. MRSA colonization of the nares. -Continue Bactroban. 8. Fluids, electrolytes, and nutrition. -NPO. -IVFs. -G-tube feeds. 9. DVT prophylaxis. -Bilateral SCDs. 10. Plan. -Continue antimicrobials as per ID. -Await clinical improvement. -Up-titrate G-tube feedings. If able to tolerate G-tube feedings, will discharge the patient back to a halfway facility. The patient was seen in collaboration with Dr. Bonner. Result Diagram: 10/22/1828 10/22/1827 Results 24hrs Laboratory Tests Test 10/22/18 05:27 10/22/18 05:28 Sodium Level 141 Potassium Level 3.3 L Chloride Level 105 Carbon Dioxide Level 21 Anion Gap 15 #H Blood Urea Nitrogen 6 L Creatinine 0.51 L Est Glomerular Filtrat Rate mL/min > 60 Glucose Level 103 Calcium Level 9.6 White Blood Count 8.6 Red Blood Count 5.21 Hemoglobin 14.5 Hematocrit 42.0 Mean Corpuscular Volume 80.6 L Mean Corpuscular Hemoglobin 27.8 L Mean Corpuscular Hemoglobin Concent 34.5 Red Cell Distribution Width 15.5 H Platelet Count 286 Mean Platelet Volume 10.2 Immature Granulocytes % 0.200 Neutrophils % 52.7 Lymphocytes % 38.3 Monocytes % 6.8 Eosinophils % 1.7 Basophils % 0.3 Nucleated Red Blood Cells % 0.0 Immature Granulocytes # 0.020 Neutrophils # 4.5 Lymphocytes # 3.3 H Monocytes # 0.6 Eosinophils # 0.2 Basophils # 0.0 Nucleated Red Blood Cells # 0.0 Phosphorus Level 2.3 L Magnesium Level 1.6 L Exam/Review of Systems Exam Vitals Vital Signs Date Temp Pulse Resp B/P (MAP) Pulse Ox O2 O2 Flow FiO2 Time Delivery Rate 10/22/18 97.7 68 17 145/90 95 Room Air 10:00 (108) Intake and Output 10/21/18 10/21/18 10/22/18 1515:00 23:00 07:00 IntakeIntake Total 50 ml 810 ml 1360 ml BalanceBalance 50 ml 810 ml 1360 ml Results Results 24hrs Laboratory Tests Test 10/22/18 05:27 10/22/18 05:28 Sodium Level 141 Potassium Level 3.3 L Chloride Level 105 Carbon Dioxide Level 21 Anion Gap 15 #H Blood Urea Nitrogen 6 L Creatinine 0.51 L Est Glomerular Filtrat Rate mL/min > 60 Glucose Level 103 Calcium Level 9.6 White Blood Count 8.6 Red Blood Count 5.21 Hemoglobin 14.5 Hematocrit 42.0 Mean Corpuscular Volume 80.6 L Mean Corpuscular Hemoglobin 27.8 L Mean Corpuscular Hemoglobin Concent 34.5 Red Cell Distribution Width 15.5 H Platelet Count 286 Mean Platelet Volume 10.2 Immature Granulocytes % 0.200 Neutrophils % 52.7 Lymphocytes % 38.3 Monocytes % 6.8 Eosinophils % 1.7 Basophils % 0.3 Nucleated Red Blood Cells % 0.0 Immature Granulocytes # 0.020 Neutrophils # 4.5 Lymphocytes # 3.3 H Monocytes # 0.6 Eosinophils # 0.2 Basophils # 0.0 Nucleated Red Blood Cells # 0.0 Phosphorus Level 2.3 L Magnesium Level 1.6 L Medications Medication Current Medications IV Flush (NS 3 ml) 3 ml PER PROTOCOL IV ; Start 10/16/18 at 23:00 Ondansetron HCl (Zofran Inj) 4 mg Q6H PRN IV NAUSEA/VOMITING; Start 10/16/18 at 23:00 Albuterol/ Ipratropium (Duoneb) 3 ml Q2H RESP THERAPY PRN HHN SHORTNESS OF BREATH; Start 10/16/18 at 23:00 Ceftriaxone Sodium 50 ml @ 100 mls/hr Q12H IVPB Last administered on 10/22/18at 09:13; Admin Dose 100 MLS/HR; Start 10/17/18 at 09:00 Lansoprazole (Prevacid) 30 mg DAILY@06 PO Last administered on 10/22/18at 05:53; Admin Dose 30 MG; Start 10/19/18 at 06:00 Mupirocin (Bactroban) 1 applic BID TOP Last administered on 10/22/18at 09:14; Admin Dose 1 APPLIC; Start 10/18/18 at 21:00 Potassium Chloride/Sodium Chloride 1,000 ml @ 60 mls/hr [id number] IV Last administered on 10/22/18at 10:47; Admin Dose 60 MLS/HR; Start 10/19/18 at 16:30 Acetaminophen (Tylenol Tab) 650 mg Q6H PRN GTB .PAIN 1-3 OR TEMP Last administered on 10/22/18 06:06; Admin Dose 650 MG; Start 10/20/18 at 17:00 Atorvastatin Calcium (Lipitor) 40 mg QHS GTB Last administered on 10/21/18 21:30; Admin Dose 40 MG; Start 10/20/18 at 21:00 Clopidogrel Bisulfate (plaVIX) 75 mg DAILY GTB Last administered on 10/22/18 09:15; Admin Dose 75 MG; Start 10/21/18 at 09:00 Sertraline HCl (Zoloft) 25 mg DAILY GTB Last administered on 10/22/18 09:15; Admin Dose 25 MG; Start 10/21/18 at 09:00 Aspirin (Aspirin) 81 mg DAILY GTB Last administered on 10/22/18 09:14; Admin Dose 81 MG; Start 10/20/18 at 12:00 Lorazepam (Ativan) 1 mg Q6H PRN IV ANXIETY Last administered on 10/21/18 22: 01; Admin Dose 1 MG; Start 10/20/18 at 12:00 Doxycycline Hyclate (Vibramycin) 100 mg BID GTB Last administered on 10/22/18 09:13; Admin Dose 100 MG; Start 10/20/18 at 21:00 Lactobacillus Acidophilus/ Rhamnosus (Culturelle) 1 cap BID GTB Last administered on 10/22/18 09:15; Admin Dose 1 CAP; Start 10/20/18 at 21:00 Lisinopril (Zestril) 5 mg DAILY GTB Last administered on 10/22/18 09:14; Admin Dose 5 MG; Start 10/21/18 at 11:00 Hydralazine HCl (Apresoline) 10 mg Q4H PRN IV ELEVATED SYSTOLIC BP Last administered on 10/22/18 02:42; Admin Dose 10 MG; Start 10/22/18 at 03:00 EDELMIRA HERZOG NP Oct 22, 2018 15:31
[2018-10-22] MEDS: LORAZEPAM 2 MG INJ IV PRN ×2 (17:59→23:23)
[2018-10-22] MEDS: ATORVASTATIN 40 MG TAB GTB SCH (21:10)
[2018-10-23 01:57] VITALS: BP 117/80; PULSE 86; RESP 17
[2018-10-23] MEDS ORDERED: HALOPERIDOL 5 MG INJ IM ONE (02:00)
[2018-10-23] MEDS: LANSOPRAZOLE 30 MG CAP PO SCH (06:32)
[2018-10-23] MEDS: 1/2 NS + KCL 20 MEQ 1,000 ML IV SCH ×2 (06:32→23:31)
[2018-10-23 07:20] VITALS: BP 160/96; PULSE 66; RESP 18
[2018-10-23] MEDS: MUPIROCIN 2% 22 GM OINT TOP SCH ×2 (09:53→21:22)
[2018-10-23] MEDS: CEFTRIAXONE 1 GM/50 ML (PMX) 50 ML IVPB SCH ×2 (09:53→21:20)
[2018-10-23] MEDS: CLOPIDOGREL 75 MG TAB GTB SCH (09:53)
[2018-10-23] MEDS: ASPIRIN 81 MG TAB GTB SCH (09:53)
[2018-10-23] MEDS: LISINOPRIL 5 MG TAB GTB SCH (09:54)
[2018-10-23] MEDS: DOXYCYCLINE 100 MG TAB GTB SCH ×2 (09:54→21:19)
[2018-10-23] MEDS: LACTOBACILLUS RHAMNOSUS CAP GTB SCH ×2 (09:54→21:20)
[2018-10-23] MEDS: SERTRALINE 50 MG TAB GTB SCH (09:54)
--- NOTE | 2018-10-23 12:06 | PN ---
Date/Time of Note Date/Time of Note DATE: 10/23/18 TIME: 12:05 Assessment/Plan VTE Prophylaxis Risk score (from Ns)>0 risk: 7 SCD applied (from Ns): Yes Pharmacological prophylaxis: NA/contraindicated Pharm contraindication: anticoag not tolerated Lines/Catheters IV Catheter Type (from [facility]): Peripheral IV Urinary Cath still in place: No Assessment/Plan Hospital Course Is sUBJECTIVE: The patient remains confused. The patient remains afebrile. OBJECTIVE: Physical Exam General: Adequately build 68 year-old male lying in bed in no apparent distress. HEENT: Normocephalic, atraumatic. Eyes: Anicteric sclerae, conjunctivae clear. ENT: Nasal septum midline, oral mucosa moist. Neck supple. Respiratory: Bilaterally diminished breath sounds. No use of accessory muscles of respiration. No adventitious breath sounds. Cardiovascular: S1, S2 heard. Regular rate and rhythm. Abdomen: Soft, nontender, and nondistended. Bowel sounds positive in all 4 quadrants. G-tube in place. Genitourinary: Deferred. Extremities: No cyanosis, no clubbing, no edema. Peripheral pulses palpable. Neurologic: The patient is awake and alert. Oriented to self. Left hemiplegia. Skin: Normal skin turgor. No skin rashes. Labs & Vitals per chart ASSESSMENT & PLAN This is a 68-year-old male with a past medical history of stroke with underlying dysphagia, hypertension, dyslipidemia, and chronic encephalopathy who was brought in from a residential facility because of reported abdominal pain and reported hematemesis. The patient was admitted to inpatient setting for further treatment and evaluation. 1. Reported gastrointestinal bleeding. -No episodes of hematemesis. -Monitor H&H closely. -Continue PPI. 2. Gram-positive bacteremia. -Consistent with contamination. -Vancomycin discontinued. 3. Possible underlying pneumonia. -Possible aspiration pneumonia. -Continue antimicrobials. 4. History of stroke. -Continue dual antiplatelet therapy. -Continue statins. 5. Hypokalemia. -Probably secondary to underlying vomiting. -Resolved. 6. Dysphagia. -NPO. -Aspiration precautions. -ST evaluation. -Status post video swallow evaluation on 10/20/2018. The patient is at high risk for aspiration. 7. MRSA colonization of the nares. -Continue Bactroban. 8. Fluids, electrolytes, and nutrition. -NPO. -IVFs. -G-tube feeds. 9. DVT prophylaxis. -Bilateral SCDs. 10. Plan. -Continue antimicrobials as per ID. -Await clinical improvement. -Plan is to discharge the patient home with home health. The patient was seen in collaboration with Dr. Bonner. Result Diagram: 10/23/1858 10/23/1858 Results 24hrs Laboratory Tests Test 10/23/18 05:58 White Blood Count 7.8 Red Blood Count 5.07 Hemoglobin 13.8 L Hematocrit 41.5 L Mean Corpuscular Volume 81.9 L Mean Corpuscular Hemoglobin 27.2 L Mean Corpuscular Hemoglobin Concent 33.3 Red Cell Distribution Width 16.2 H Platelet Count 270 Mean Platelet Volume 10.1 Immature Granulocytes % 0.300 Neutrophils % 56.4 Lymphocytes % 32.9 Monocytes % 7.3 Eosinophils % 2.7 Basophils % 0.4 Nucleated Red Blood Cells % 0.0 Immature Granulocytes # 0.020 Neutrophils # 4.4 Lymphocytes # 2.6 Monocytes # 0.6 Eosinophils # 0.2 Basophils # 0.0 Nucleated Red Blood Cells # 0.0 Sodium Level 143 Potassium Level 3.9 Chloride Level 110 Carbon Dioxide Level 25 Anion Gap 8 Blood Urea Nitrogen 7 Creatinine 0.54 L Est Glomerular Filtrat Rate mL/min > 60 Glucose Level 102 Calcium Level 9.6 Phosphorus Level 3.2 Magnesium Level 2.1 Exam/Review of Systems Exam Vitals Vital Signs Date Temp Pulse Resp B/P (MAP) Pulse Ox O2 O2 Flow FiO2 Time Delivery Rate 10/23/18 97.8 66 18 160/96 100 Room Air 07:20 (117) Intake and Output 10/22/18 10/22/18 10/23/18 1515:00 23:00 07:00 IntakeIntake Total 160 ml 355 ml 1910 ml BalanceBalance 160 ml 355 ml 1910 ml Results Results 24hrs Laboratory Tests Test 10/23/18 05:58 White Blood Count 7.8 Red Blood Count 5.07 Hemoglobin 13.8 L Hematocrit 41.5 L Mean Corpuscular Volume 81.9 L Mean Corpuscular Hemoglobin 27.2 L Mean Corpuscular Hemoglobin Concent 33.3 Red Cell Distribution Width 16.2 H Platelet Count 270 Mean Platelet Volume 10.1 Immature Granulocytes % 0.300 Neutrophils % 56.4 Lymphocytes % 32.9 Monocytes % 7.3 Eosinophils % 2.7 Basophils % 0.4 Nucleated Red Blood Cells % 0.0 Immature Granulocytes # 0.020 Neutrophils # 4.4 Lymphocytes # 2.6 Monocytes # 0.6 Eosinophils # 0.2 Basophils # 0.0 Nucleated Red Blood Cells # 0.0 Sodium Level 143 Potassium Level 3.9 Chloride Level 110 Carbon Dioxide Level 25 Anion Gap 8 Blood Urea Nitrogen 7 Creatinine 0.54 L Est Glomerular Filtrat Rate mL/min > 60 Glucose Level 102 Calcium Level 9.6 Phosphorus Level 3.2 Magnesium Level 2.1 Medications Medication Current Medications IV Flush (NS 3 ml) 3 ml PER PROTOCOL IV ; Start 10/16/18 at 23:00 Ondansetron HCl (Zofran Inj) 4 mg Q6H PRN IV NAUSEA/VOMITING; Start 10/16/18 at 23:00 Albuterol/ Ipratropium (Duoneb) 3 ml Q2H RESP THERAPY PRN HHN SHORTNESS OF BREATH; Start 10/16/18 at 23:00 Ceftriaxone Sodium 50 ml @ 100 mls/hr Q12H IVPB Last administered on 10/23/18 09:53; Admin Dose 100 MLS/HR; Start 10/17/18 at 09:00 Lansoprazole (Prevacid) 30 mg DAILY@06 PO Last administered on 10/23/18 06:32; Admin Dose 30 MG; Start 10/19/18 at 06:00 Mupirocin (Bactroban) 1 applic BID TOP Last administered on 10/23/18 09:53; Admin Dose 1 APPLIC; Start 10/18/18 at 21:00 Potassium Chloride/Sodium Chloride 1,000 ml @ 60 mls/hr [id number] IV Last administered on 10/23/18 06:32; Admin Dose 60 MLS/HR; Start 10/19/18 at 16:30 Acetaminophen (Tylenol Tab) 650 mg Q6H PRN GTB .PAIN 1-3 OR TEMP Last administered on 10/22/18 23:03; Admin Dose 650 MG; Start 10/20/18 at 17:00 Atorvastatin Calcium (Lipitor) 40 mg QHS GTB Last administered on 10/22/18 21:10; Admin Dose 40 MG; Start 10/20/18 at 21:00 Clopidogrel Bisulfate (plaVIX) 75 mg DAILY GTB Last administered on 10/23/18 09:53; Admin Dose 75 MG; Start 10/21/18 at 09:00 Sertraline HCl (Zoloft) 25 mg DAILY GTB Last administered on 10/23/18 09:54; Admin Dose 25 MG; Start 10/21/18 at 09:00 Aspirin (Aspirin) 81 mg DAILY GTB Last administered on 10/23/18 09:53; Admin Dose 81 MG; Start 10/20/18 at 12:00 Lorazepam (Ativan) 1 mg Q6H PRN IV ANXIETY Last administered on 10/22/18 23:23; Admin Dose 1 MG; Start 10/20/18 at 12:00 Doxycycline Hyclate (Vibramycin) 100 mg BID GTB Last administered on 10/23/18 09:54; Admin Dose 100 MG; Start 10/20/18 at 21:00 Lactobacillus Acidophilus/ Rhamnosus (Culturelle) 1 cap BID GTB Last administered on 10/23/18 09:54; Admin Dose 1 CAP; Start 10/20/18 at 21:00 Lisinopril (Zestril) 5 mg DAILY GTB Last administered on 10/23/18 09:54; Admin Dose 5 MG; Start 10/21/18 at 11:00 Hydralazine HCl (Apresoline) 10 mg Q4H PRN IV ELEVATED SYSTOLIC BP Last administered on 10/22/18 02:42; Admin Dose 10 MG; Start 10/22/18 at 03:00 EDELMIRA HERZOG NP Oct 23, 2018 12:06
--- NOTE | 2018-10-23 14:04 | DS ---
Discharge Summary Admission/Discharge Info Admit Date/Time Discharge Date/Time Home Meds Active Scripts Lisinopril* (Lisinopril*) 5 Mg Tablet, 5 MG GTB DAILY, #30 TAB Prov:EDELMIRA HERZOG NP 10/23/18 Reported Medications Atorvastatin* (Atorvastatin*) 40 Mg Tablet, 40 MG GTB QHS, #30 TAB 10/16/18 Sennosides* (Senna Lax*) 8.6 Mg Tablet, 1 TAB GTB DAILY, TAB 10/16/18 Docusate Sodium* (Docusate Sodium*) 100 Mg Capsule, 100 MG GTB DAILY, #30 CAP 10/16/18 Hydrochlorothiazide* (Hydrochlorothiazide*) 25 Mg Tab, 25 MG GTB DAILY, #30 TAB 10/16/18 Aspirin* (Aspirin* EC) 81 Mg Tablet.dr, 81 MG GTB DAILY, TAB 10/16/18 Ondansetron Hcl* (Zofran*) 4 Mg Tablet, 4 MG PO Q6H PRN for NAUSEA AND OR VOMITING, TAB 10/16/18 Clopidogrel Bisulfate (Clopidogrel) 75 Mg Tablet, 75 MG PO DAILY, #30 TAB 10/16/18 Sertraline Hcl* (Zoloft*) 25 Mg Tablet, 25 MG PO DAILY, #30 TAB 10/16/18 Lorazepam* (Lorazepam*) 1 Mg Tablet, 1 MG PO TID PRN for ANXIETY, #30 TAB 10/16/18 [Dulcolax Supp] No Conflict Check, 1 RECTAL DAILY for CONSTIPATION 10/16/18 Pending Labs EDELMIRA HERZOG NP Oct 23, 2018 14:04
--- NOTE | 2018-10-23 14:06 | PDOCDIS ---
Discharge Instructions DIAGNOSIS Discharge Diagnosis HOME CARE INSTRUCTIONS: [id number] Special Diet: [id number] G-tube feeds. EDELMIRA HERZOG NP Oct 23, 2018 14:06
[2018-10-23 14:15] VITALS: BP 183/86; PULSE 82; RESP 18
[2018-10-23] MEDS ORDERED: LISI-313 GTB (14:28)
[2018-10-23] MEDS: hydrALAzine 20 MG INJ IV PRN (14:34)
[2018-10-23 15:00] VITALS: BP 125/72; PULSE 100; RESP 19
--- NOTE | 2018-10-23 17:55 | CONS ---
Consultation Date/Type/Reason Admit Date/Time Oct 16, 2018 at 20:02 Initial Consult Date SUBJECTIVE: Pt is awake, alert, looks comfortable, no fevers VS: stable T: 98.0 LABS: Reviewed. WBC- 7.8 Microbiology: Blood culture on admission grew coag negative staph, repeat blood cultures negative. CT of the abdomen and pelvis on admission revealed small bowel ileus, NG tube in place with balloon in the gastric lumen. Chest x-ray revealed new right basilar opacity possibly developing infiltrate Antimicrobials: Doxycycline and Rocephin Physical examination: GEN: Well-developed well-nourished, chronically ill-appearing elderly man, who is awake in no distress. HENT: Head atraumatic normocephalic, sclera nonicteric, neck is supple PULM: chest rise symmetrical, breath sounds diminished bases. Heart: S1-S2. Abdomen soft bowel sounds present. Extremities without cyanosis. Assessment: 1. Coag negative staph bacteremia consistent with contaminant 2. Pneumonia possibly aspiration 3. Dysphagia status post PEG 4. History of CVA 5. MRSA colonization of the nares Plan: Patient is stable. Continue current abx. for couple more days. Date/Time of Note DATE: 10/23/18 TIME: 17:53 Exam/Review of Systems Exam Vitals Vital Signs Date Temp Pulse Resp B/P (MAP) Pulse Ox O2 O2 Flow FiO2 Time Delivery Rate 10/23/18 100 19 125/72 Room Air 15:00 (89) 10/23/18 98.0 100 14:15 Intake and Output 10/22/18 10/22/18 10/23/18 1515:00 23:00 07:00 IntakeIntake Total 160 ml 355 ml 1910 ml BalanceBalance 160 ml 355 ml 1910 ml Results Result Diagram: 10/23/18 0558 10/23/18 0558 Results 24hrs Laboratory Tests Test 10/23/18 05:58 White Blood Count 7.8 Red Blood Count 5.07 Hemoglobin 13.8 L Hematocrit 41.5 L Mean Corpuscular Volume 81.9 L Mean Corpuscular Hemoglobin 27.2 L Mean Corpuscular Hemoglobin Concent 33.3 Red Cell Distribution Width 16.2 H Platelet Count 270 Mean Platelet Volume 10.1 Immature Granulocytes % 0.300 Neutrophils % 56.4 Lymphocytes % 32.9 Monocytes % 7.3 Eosinophils % 2.7 Basophils % 0.4 Nucleated Red Blood Cells % 0.0 Immature Granulocytes # 0.020 Neutrophils # 4.4 Lymphocytes # 2.6 Monocytes # 0.6 Eosinophils # 0.2 Basophils # 0.0 Nucleated Red Blood Cells # 0.0 Sodium Level 143 Potassium Level 3.9 Chloride Level 110 Carbon Dioxide Level 25 Anion Gap 8 Blood Urea Nitrogen 7 Creatinine 0.54 L Est Glomerular Filtrat Rate mL/min > 60 Glucose Level 102 Calcium Level 9.6 Phosphorus Level 3.2 Magnesium Level 2.1 Medications Medication Current Medications IV Flush (NS 3 ml) 3 ml PER PROTOCOL IV ; Start 10/16/18 at 23:00 Ondansetron HCl (Zofran Inj) 4 mg Q6H PRN IV NAUSEA/VOMITING; Start 10/16/18 at 23:00 Albuterol/ Ipratropium (Duoneb) 3 ml Q2H RESP THERAPY PRN HHN SHORTNESS OF BREATH; Start 10/16/18 at 23:00 Ceftriaxone Sodium 50 ml @ 100 mls/hr Q12H IVPB Last administered on 10/23/18 09:53; Admin Dose 100 MLS/HR; Start 10/17/18 at 09:00 Lansoprazole (Prevacid) 30 mg DAILY@06 PO Last administered on 10/23/18 06:32; Admin Dose 30 MG; Start 10/19/18 at 06:00 Mupirocin (Bactroban) 1 applic BID TOP Last administered on 10/23/18 09:53; Admin Dose 1 APPLIC; Start 10/18/18 at 21:00 Potassium Chloride/Sodium Chloride 1,000 ml @ 60 mls/hr [id number] IV Last administered on 10/23/18 06:32; Admin Dose 60 MLS/HR; Start 10/19/18 at 16:30 Acetaminophen (Tylenol Tab) 650 mg Q6H PRN GTB .PAIN 1-3 OR TEMP Last a dministered on 10/22/18 23:03; Admin Dose 650 MG; Start 10/20/18 at 17:00 Atorvastatin Calcium (Lipitor) 40 mg QHS GTB Last administered on 10/22/18 21:10; Admin Dose 40 MG; Start 10/20/18 at 21:00 Clopidogrel Bisulfate (plaVIX) 75 mg DAILY GTB Last administered on 10/23/18 09:53; Admin Dose 75 MG; Start 10/21/18 at 09:00 Sertraline HCl (Zoloft) 25 mg DAILY GTB Last administered on 10/23/18 09:54; Admin Dose 25 MG; Start 10/21/18 at 09:00 Aspirin (Aspirin) 81 mg DAILY GTB Last administered on 10/23/18 09:53; Admin Dose 81 MG; Start 10/20/18 at 12:00 Lorazepam (Ativan) 1 mg Q6H PRN IV ANXIETY Last administered on 10/22/18 23:23; Admin Dose 1 MG; Start 10/20/18 at 12:00 Doxycycline Hyclate (Vibramycin) 100 mg BID GTB Last administered on 10/23/18 09:54; Admin Dose 100 MG; Start 10/20/18 at 21:00 Lactobacillus Acidophilus/ Rhamnosus (Culturelle) 1 cap BID GTB Last administered on 10/23/18 09:54; Admin Dose 1 CAP; Start 10/20/18 at 21:00 Lisinopril (Zestril) 5 mg DAILY GTB Last administered on 10/23/18 09:54; Admin Dose 5 MG; Start 10/21/18 at 11:00 Hydralazine HCl (Apresoline) 10 mg Q4H PRN IV ELEVATED SYSTOLIC BP Last administered on 10/23/18 14:34; Admin Dose 10 MG; Start 10/22/18 at 03:00 YOSHI SILVA Oct 23, 2018 17:55
[2018-10-23] MEDS: ACETAMINOPHEN 325 MG TAB GTB PRN (19:38)
[2018-10-23 20:00] VITALS: BP 160/80; PULSE 93; RESP 18
[2018-10-23] MEDS: ATORVASTATIN 40 MG TAB GTB SCH (21:19)
[2018-10-23] MEDS: LORAZEPAM 2 MG INJ IV PRN (23:17)
[2018-10-24] VITALS (7 sets, daily range): BP systolic 113–190; BP diastolic 70–99; PULSE 71–97; RESP 18
[2018-10-24] MEDS: HYDROCODONE/APAP (5/325) TAB GTB PRN ×3 (01:02→16:38)
[2018-10-24] MEDS: hydrALAzine 20 MG INJ IV PRN ×2 (01:32→22:09)
[2018-10-24] MEDS: LANSOPRAZOLE 30 MG CAP PO SCH (05:06)
[2018-10-24] MEDS: CEFTRIAXONE 1 GM/50 ML (PMX) 50 ML IVPB SCH (08:07)
[2018-10-24] MEDS: DOXYCYCLINE 100 MG TAB GTB SCH ×2 (08:11→21:41)
[2018-10-24] MEDS: LISINOPRIL 5 MG TAB GTB SCH (08:11)
[2018-10-24] MEDS: CLOPIDOGREL 75 MG TAB GTB SCH (08:11)
[2018-10-24] MEDS: SERTRALINE 50 MG TAB GTB SCH (08:11)
[2018-10-24] MEDS: LACTOBACILLUS RHAMNOSUS CAP GTB SCH ×2 (08:11→21:41)
[2018-10-24] MEDS: MUPIROCIN 2% 22 GM OINT TOP SCH ×2 (08:12→21:42)
[2018-10-24] MEDS: ASPIRIN 81 MG TAB GTB SCH (08:15)
--- NOTE | 2018-10-24 10:39 | PN ---
Date/Time of Note Date/Time of Note DATE: 10/24/18 TIME: 10:38 Assessment/Plan VTE Prophylaxis Risk score (from Ns)>0 risk: 6 SCD applied (from Ns): Yes Pharmacological prophylaxis: NA/contraindicated Pharm contraindication: anticoag not tolerated Lines/Catheters [facility] Peripheral IV Urinary Cath still in place: No Assessment/Plan Hospital Course SUBJECTIVE: The patient remains confused. The patient remains afebrile. OBJECTIVE: Physical Exam General: Adequately build 68 year-old male lying in bed in no apparent distress. HEENT: Normocephalic, atraumatic. Eyes: Anicteric sclerae, conjunctivae clear. ENT: Nasal septum midline, oral mucosa moist. Neck supple. Respiratory: Bilaterally diminished breath sounds. No use of accessory muscles of respiration. No adventitious breath sounds. Cardiovascular: S1, S2 heard. Regular rate and rhythm. Abdomen: Soft, nontender, and nondistended. Bowel sounds positive in all 4 quadrants. G-tube in place. Genitourinary: Deferred. Extremities: No cyanosis, no clubbing, no edema. Peripheral pulses palpable. Neurologic: The patient is awake and alert. Oriented to self. Left hemiplegia. Skin: Normal skin turgor. No skin rashes. Labs & Vitals per chart ASSESSMENT & PLAN This is a 68-year-old male with a past medical history of stroke with underlying dysphagia, hypertension, dyslipidemia, and chronic encephalopathy who [facility] a [facility] facility because of reported abdominal pain and reported hematemesis. The patient was admitted to inpatient setting for further treatment and evaluation. 1. Reported gastrointestinal bleeding. -No episodes of hematemesis. -Monitor H&H closely. -Continue PPI. 2. Gram-positive bacteremia. -Consistent with contamination. -Vancomycin discontinued. 3. Possible underlying pneumonia. -Possible aspiration pneumonia. -Continue antimicrobials. 4. History of stroke. -Continue dual antiplatelet therapy. -Continue statins. 5. Hypokalemia. -Probably secondary to underlying vomiting. -Resolved. 6. Dysphagia. -NPO. -Aspiration precautions. -ST evaluation. -Status post video swallow evaluation on 10/20/2018. The patient is at high risk for aspiration. 7. MRSA colonization of the nares. -Continue Bactroban. 8. Fluids, electrolytes, and nutrition. -NPO. -IVFs. -G-tube feeds. 9. DVT prophylaxis. -Bilateral SCDs. 10. Plan. -Continue antimicrobials as per ID. -Await clinical improvement. -Plan is to discharge the patient home with home health. The patient was seen in collaboration with Dr. Bonner. Result Diagram: 10/23/1855710/23/18557 Exam/Review of Systems Exam Vitals Vital Signs Date Temp Pulse Resp B/P (MAP) Pulse Ox O2 O2 Flow FiO2 Time Delivery Rate 10/24/18 71 113/71 10:13 (85) 10/24/18 98.0 18 98 Room Air 08:47 Intake and Output 10/23/18 10/23/18 10/24/18 1414:59 22:59 06:59 IntakeIntake Total 50 ml 1570 ml 760 ml BalanceBalance 50 ml 1570 ml 760 ml Medications Medication Current Medications IV Flush (NS 3 ml) 3 ml PER PROTOCOL IV ; Start 10/16/18 at 23:00 Ondansetron HCl (Zofran Inj) 4 mg Q6H PRN IV NAUSEA/VOMITING; Start 10/16/18 at 23:00 Albuterol/ Ipratropium (Duoneb) 3 ml Q2H RESP THERAPY PRN HHN SHORTNESS OF BREATH; Start 10/16/18 at 23:00 Lansoprazole (Prevacid) 30 mg DAILY@06 PO Last administered on 10/24/18at 05:06; Admin Dose 30 MG; Start 10/19/18 at 06:00 Mupirocin (Bactroban) 1 applic BID TOP Last administered on 10/24/18at 08:12; Admin Dose 1 APPLIC; Start 10/18/18 at 21:00 Potassium Chloride/Sodium Chloride 1,000 ml @ 60 mls/hr [id number] IV Last administered on 10/23/18at 23:31; Admin Dose 60 MLS/HR; Start 10/19/18 at 16:30 Acetaminophen (Tylenol Tab) 650 mg Q6H PRN GTB .PAIN 1-3 OR TEMP Last administered on 10/23/18at 19:38; Admin Dose 650 MG; Start 10/20/18 at 17:00 Atorvastatin Calcium (Lipitor) 40 mg QHS GTB Last administered on 10/23/18at 21:19; Admin Dose 40 MG; Start 10/20/18 at 21:00 Clopidogrel Bisulfate (plaVIX) 75 mg DAILY GTB Last administered on 10/24/18 08:11; Admin Dose 75 MG; Start 10/21/18 at 09:00 Sertraline HCl (Zoloft) 25 mg DAILY GTB Last administered on 10/24/18 08:11; Admin Dose 25 MG; Start 10/21/18 at 09:00 Aspirin (Aspirin) 81 mg DAILY GTB Last administered on 10/24/18 08:15; Admin Dose 81 MG; Start 10/20/18 at 12:00 Lorazepam (Ativan) 1 mg Q6H PRN IV ANXIETY Last administered on 10/23/18 23:17; Admin Dose 1 MG; Start 10/20/18 at 12:00 Doxycycline Hyclate (Vibramycin) 100 mg BID GTB Last administered on 10/24/18 08:11; Admin Dose 100 MG; Start 10/20/18 at 21:00 Lactobacillus Acidophilus/ Rhamnosus (Culturelle) 1 cap BID GTB Last administered on 10/24/18 08:11; Admin Dose 1 CAP; Start 10/20/18 at 21:00 Lisinopril (Zestril) 5 mg DAILY GTB Last administered on 10/24/18 08:11; Admin Dose 5 MG; Start 10/21/18 at 11:00 Hydralazine HCl (Apresoline) 10 mg Q4H PRN IV ELEVATED SYSTOLIC BP Last administered on 10/24/18at 01:32; Admin Dose 10 MG; Start 10/22/18 at 03:00 Acetaminophen/ Hydrocodone Bitart ([place] (5/325)) 1 tab Q4H PRN GTB MODERATE PAIN LEVEL 4-6 Last administered on 10/24/18 05:06; Admin Dose 1 TAB; Start 10/24/18 at 01:00 EDELMIRA HERZOG NP Oct 24, 2018 10:39
[2018-10-24] MEDS: 1/2 NS + KCL 20 MEQ 1,000 ML IV SCH (14:25)
--- NOTE | 2018-10-24 17:17 | CONS ---
Consultation Date/Type/Reason Admit Date/Time Oct 16, 2018 at 20:02 Initial Consult Date SUBJECTIVE: Pt is awake, alert, afebrile. No acute events over night. VS: stable T: 98.3 LABS: Reviewed. Microbiology: Blood culture on admission grew coag negative staph, repeat blood cultures negative. CT of the abdomen and pelvis on admission revealed small bowel ileus, NG tube in place with balloon in the gastric lumen. Chest x-ray revealed new right basilar opacity possibly developing infiltrate Antimicrobials: Doxycycline and Rocephin Physical examination: GEN: Well-developed well-nourished, chronically ill-appearing elderly man, who is awake in no distress. HENT: Head atraumatic normocephalic, sclera nonicteric, neck is supple PULM: chest rise symmetrical, breath sounds diminished bases. Heart: S1-S2. Abdomen soft bowel sounds present. Extremities without cyanosis. Assessment: 1. Coag negative staph bacteremia consistent with contaminant 2. Pneumonia possibly aspiration 3. Dysphagia status post PEG 4. History of CVA 5. MRSA colonization of the nares Plan: Patient is stable. Rocephin has been stopped today. Continue Doxy for few more days. Date/Time of Note DATE: 10/24/18 TIME: 17:16 Exam/Review of Systems Exam Vitals Vital Signs Date Temp Pulse Resp B/P (MAP) Pulse Ox O2 O2 Flow FiO2 Time Delivery Rate 10/24/18 98.3 80 18 126/70 98 Room Air 15:11 (88) Intake and Output 10/23/18 10/23/18 10/24/18 1515:00 23:00 07:00 IntakeIntake Total 50 ml 1570 ml 760 ml BalanceBalance 50 ml 1570 ml 760 ml Results Result Diagram: 10/23/18 0558 10/23/18 0558 Medications Medication Current Medications IV Flush (NS 3 ml) 3 ml PER PROTOCOL IV ; Start 10/16/18 at 23:00 Ondansetron HCl (Zofran Inj) 4 mg Q6H PRN IV NAUSEA/VOMITING; Start 10/16/18 at 23:00 Albuterol/ Ipratropium (Duoneb) 3 ml Q2H RESP THERAPY PRN HHN SHORTNESS OF BREATH; Start 10/16/18 at 23:00 Lansoprazole (Prevacid) 30 mg DAILY@06 PO Last administered on 4/21/19at 05:06; Admin Dose 30 MG; Start 10/19/18 at 06:00 Mupirocin (Bactroban) 1 applic BID TOP Last administered on 10/24/18 08:12; Admin Dose 1 APPLIC; Start 10/18/18 at 21:00 Potassium Chloride/Sodium Chloride 1,000 ml @ 60 mls/hr [id number] IV Last administered on 10/24/18 14:25; Admin Dose 60 MLS/HR; Start 10/19/18 at 16:30 Acetaminophen (Tylenol Tab) 650 mg Q6H PRN GTB .PAIN 1-3 OR TEMP Last administered on 10/23/18 19:38; Admin Dose 650 MG; Start 10/20/18 at 17:00 Atorvastatin Calcium (Lipitor) 40 mg QHS GTB Last administered on 10/23/18 21:19; Admin Dose 40 MG; Start 10/20/18 at 21:00 Clopidogrel Bisulfate (plaVIX) 75 mg DAILY GTB Last administered on 10/24/18 08:11; Admin Dose 75 MG; Start 10/21/18 at 09:00 Sertraline HCl (Zoloft) 25 mg DAILY GTB Last administered on 10/24/18 08:11; Admin Dose 25 MG; Start 10/21/18 at 09:00 Aspirin (Aspirin) 81 mg DAILY GTB Last administered on 10/24/18 08:15; Admin Dose 81 MG; Start 10/20/18 at 12:00 Lorazepam (Ativan) 1 mg Q6H PRN IV ANXIETY Last administered on 10/23/18 23:17; Admin Dose 1 MG; Start 10/20/18 at 12:00 Doxycycline Hyclate (Vibramycin) 100 mg BID GTB Last administered on 10/24/18 08:11; Admin Dose 100 MG; Start 10/20/18 at 21:00 Lactobacillus Acidophilus/ Rhamnosus (Culturelle) 1 cap BID GTB Last adm inistered on 10/24/18 08:11; Admin Dose 1 CAP; Start 10/20/18 at 21:00 Lisinopril (Zestril) 5 mg DAILY GTB Last administered on 10/24/18 08:11; Admin Dose 5 MG; Start 10/21/18 at 11:00 Hydralazine HCl (Apresoline) 10 mg Q4H PRN IV ELEVATED SYSTOLIC BP Last administered on 10/24/18at 01:32; Admin Dose 10 MG; Start 10/22/18 at 03:00 Acetaminophen/ Hydrocodone Bitart ([place] (5/325)) 1 tab Q4H PRN GTB MODERATE PAIN LEVEL 4-6 Last administered on 10/24/18at 16:38; Admin Dose 1 TAB; Start 10/24/18 at 01:00 YOSHI SILVA Oct 24, 2018 17:17
[2018-10-24] MEDS: ATORVASTATIN 40 MG TAB GTB SCH (21:41)
[2018-10-25 02:00] VITALS: BP 158/99; PULSE 86; RESP 17
[2018-10-25] MEDS: LANSOPRAZOLE 30 MG CAP PO SCH (05:55)
[2018-10-25] MEDS: 1/2 NS + KCL 20 MEQ 1,000 ML IV SCH ×2 (05:55→22:11)
[2018-10-25 08:51] VITALS: BP 177/99; PULSE 76; RESP 18
[2018-10-25] MEDS: CLOPIDOGREL 75 MG TAB GTB SCH (09:54)
[2018-10-25] MEDS: DOXYCYCLINE 100 MG TAB GTB SCH ×2 (09:55→20:37)
[2018-10-25] MEDS: LACTOBACILLUS RHAMNOSUS CAP GTB SCH ×2 (09:55→20:37)
[2018-10-25] MEDS: LISINOPRIL 5 MG TAB GTB SCH (09:55)
[2018-10-25] MEDS: ASPIRIN 81 MG TAB GTB SCH (09:55)
[2018-10-25] MEDS: SERTRALINE 50 MG TAB GTB SCH (09:56)
[2018-10-25] MEDS: MUPIROCIN 2% 22 GM OINT TOP SCH ×2 (09:57→20:38)
--- NOTE | 2018-10-25 10:42 | PN ---
Date/Time of Note Date/Time of Note DATE: 10/25/18 TIME: 10:41 Assessment/Plan VTE Prophylaxis Risk score (from Ns)>0 risk: 6 SCD applied (from Ns): Yes Pharmacological prophylaxis: NA/contraindicated Pharm contraindication: other (Reported GI bleed.) Lines/Catheters [facility] Type (from [facility]): Peripheral IV Urinary Cath still in place: No Assessment/Plan Hospital Course SUBJECTIVE: The patient remains confused. The patient remains afebrile. OBJECTIVE: Physical Exam General: Adequately build 68 year-old male lying in bed in no apparent distress. HEENT: Normocephalic, atraumatic. Eyes: Anicteric sclerae, conjunctivae clear. ENT: Nasal septum midline, oral mucosa moist. Neck supple. Respiratory: Bilaterally diminished breath sounds. No use of accessory muscles of respiration. No adventitious breath sounds. Cardiovascular: S1, S2 heard. Regular rate and rhythm. Abdomen: Soft, nontender, and nondistended. Bowel sounds positive in all 4 quadrants. G-tube in place. Genitourinary: Deferred. Extremities: No cyanosis, no clubbing, no edema. Peripheral pulses palpable. Neurologic: The patient is awake and alert. Oriented to self. Left hemiplegia. Skin: Normal skin turgor. No skin rashes. Labs & Vitals per chart ASSESSMENT & PLAN This is a 68-year-old male with a past medical history of stroke with underlying dysphagia, hypertension, dyslipidemia, and chronic encephalopathy who was brought in from a [facility] facility because of reported abdominal pain and reported hematemesis. The patient was admitted to inpatient setting for further treatment and evaluation. 1. Reported gastrointestinal bleeding. -No episodes of hematemesis. -Monitor H&H closely. -Continue PPI. 2. Gram-positive bacteremia. -Consistent with contamination. -Vancomycin discontinued. 3. Possible underlying pneumonia. -Possible aspiration pneumonia. -Continue antimicrobials. 4. History of stroke. -Continue dual antiplatelet therapy. -Continue statins. 5. Hypokalemia. -Probably secondary to underlying vomiting. -Resolved. 6. Dysphagia. -NPO. -Aspiration precautions. -ST evaluation. -Status post video swallow evaluation on 10/20/2018. The patient is at high risk for aspiration. 7. MRSA colonization of the nares. -Continue Bactroban. 8. Fluids, electrolytes, and nutrition. -NPO. -IVFs. -G-tube feeds. 9. DVT prophylaxis. -Bilateral SCDs. 10. Plan. -Continue antimicrobials as per ID. -Await clinical improvement. -Plan is to discharge the patient home with home health. The patient was seen in collaboration with Dr. Mai. Result Diagram: 10/25/1818 10/25/1818 Results 24hrs Laboratory Tests Test 10/25/18 05:18 White Blood Count 7.8 Red Blood Count 4.98 Hemoglobin 13.8 L Hematocrit 40.4 L Mean Corpuscular Volume 81.1 L Mean Corpuscular Hemoglobin 27.7 L Mean Corpuscular Hemoglobin Concent 34.2 Red Cell Distribution Width 16.7 H Platelet Count 284 Mean Platelet Volume 10.1 Immature Granulocytes % 0.300 Neutrophils % 57.8 Lymphocytes % 32.4 Monocytes % 6.1 Eosinophils % 3.1 Basophils % 0.3 Nucleated Red Blood Cells % 0.0 Immature Granulocytes # 0.020 Neutrophils # 4.5 Lymphocytes # 2.5 Monocytes # 0.5 Eosinophils # 0.2 Basophils # 0.0 Nucleated Red Blood Cells # 0.0 Sodium Level 140 Potassium Level Chloride Level 107 Carbon Dioxide Level 24 Anion Gap 9 Blood Urea Nitrogen 7 Creatinine 0.46 L Est Glomerular Filtrat Rate mL/min > 60 Glucose Level 101 Calcium Level 10.1 Phosphorus Level 3.5 Magnesium Level 1.9 Exam/Review of Systems Exam Vitals Vital Signs Date Temp Pulse Resp B/P (MAP) Pulse Ox O2 O2 Flow FiO2 Time Delivery Rate 10/25/18 98.6 76 18 177/99 97 Room Air 08:51 (125) Intake and Output 10/24/18 10/24/18 10/25/18 1414:59 22:59 06:59 IntakeIntake Total 630 ml 1110 ml 1610 ml BalanceBalance 630 ml 1110 ml 1610 ml Results Results 24hrs Laboratory Tests Test 10/25/18 05:18 White Blood Count 7.8 Red Blood Count 4.98 Hemoglobin 13.8 L Hematocrit 40.4 L Mean Corpuscular Volume 81.1 L Mean Corpuscular Hemoglobin 27.7 L Mean Corpuscular Hemoglobin Concent 34.2 Red Cell Distribution Width 16.7 H Platelet Count 284 Mean Platelet Volume 10.1 Immature Granulocytes % 0.300 Neutrophils % 57.8 Lymphocytes % 32.4 Monocytes % 6.1 Eosinophils % 3.1 Basophils % 0.3 Nucleated Red Blood Cells % 0.0 Immature Granulocytes # 0.020 Neutrophils # 4.5 Lymphocytes # 2.5 Monocytes # 0.5 Eosinophils # 0.2 Basophils # 0.0 Nucleated Red Blood Cells # 0.0 Sodium Level 140 Potassium Level Chloride Level 107 Carbon Dioxide Level 24 Anion Gap 9 Blood Urea Nitrogen 7 Creatinine 0.46 L Est Glomerular Filtrat Rate mL/min > 60 Glucose Level 101 Calcium Level 10.1 Phosphorus Level 3.5 Magnesium Level 1.9 Medications Medication Current Medications IV Flush (NS 3 ml) 3 ml PER PROTOCOL IV ; Start 10/16/18 at 23:00 Ondansetron HCl (Zofran Inj) 4 mg Q6H PRN IV NAUSEA/VOMITING; Start 10/16/18 at 23:00 Albuterol/ Ipratropium (Duoneb) 3 ml Q2H RESP THERAPY PRN HHN SHORTNESS OF BREATH; Start 10/16/18 at 23:00 Lansoprazole (Prevacid) 30 mg DAILY@06 PO Last administered on 10/25/18 05:55; Admin Dose 30 MG; Start 10/19/18 at 06:00 Mupirocin (Bactroban) 1 applic BID TOP Last administered on 10/24/18 21:42; Admin Dose 1 APPLIC; Start 10/18/18 at 21:00 Potassium Chloride/Sodium Chloride 1,000 ml @ 60 mls/hr [id number] IV Last administered on 10/25/18 05:55; Admin Dose 60 MLS/HR; Start 10/19/18 at 16:30 Acetaminophen (Tylenol Tab) 650 mg Q6H PRN GTB .PAIN 1-3 OR TEMP Last administered on 10/23/18 19:38; Admin Dose 650 MG; Start 10/20/18 at 17:00 Atorvastatin Calcium (Lipitor) 40 mg QHS GTB Last administered on 10/24/18 21:41; Admin Dose 40 MG; Start 10/20/18 at 21:00 Clopidogrel Bisulfate (plaVIX) 75 mg DAILY GTB Last administered on 10/24/18 08:11; Admin Dose 75 MG; Start 10/21/18 at 09:00 Sertraline HCl (Zoloft) 25 mg DAILY GTB Last administered on 10/24/18 08:11; Admin Dose 25 MG; Start 10/21/18 at 09:00 Aspirin (Aspirin) 81 mg DAILY GTB Last administered on 10/24/18 08:15; Admin Dose 81 MG; Start 10/20/18 at 12:00 Lorazepam (Ativan) 1 mg Q6H PRN IV ANXIETY Last administered on 10/23/18 23:17; Admin Dose 1 MG; Start 10/20/18 at 12:00 Doxycycline Hyclate (Vibramycin) 100 mg BID GTB Last administered on 10/24/18 21:41; Admin Dose 100 MG; Start 10/20/18 at 21:00 Lactobacillus Acidophilus/ Rhamnosus (Culturelle) 1 cap BID GTB Last administered on 10/24/18 21:41; Admin Dose 1 CAP; Start 10/20/18 at 21:00 Lisinopril (Zestril) 5 mg DAILY GTB Last administered on 10/24/18 08:11; Admin Dose 5 MG; Start 10/21/18 at 11:00 Hydralazine HCl (Apresoline) 10 mg Q4H PRN IV ELEVATED SYSTOLIC BP Last administered on 10/24/18 22:09; Admin Dose 10 MG; Start 10/22/18 at 03:00 Acetaminophen/ Hydrocodone Bitart ([place] (5/325)) 1 tab Q4H PRN GTB MODERATE PAIN LEVEL 4-6 Last administered on 10/24/18 16:38; Admin Dose 1 TAB; Start 10/24/18 at 01:00 EDELMIRA HERZOG NP Oct 25, 2018 10:42
--- NOTE | 2018-10-25 14:49 | CONS ---
Assessment/Plan Assessment/Plan Hospital Course (Demo Recall) No acute changes, looks comfortable Microbiology: Blood culture on admission grew coag negative staph, repeat blood cultures negative. CT of the abdomen and pelvis on admission revealed small bowel ileus, NG tube in place with balloon in the gastric lumen. Chest x-ray revealed new right basilar opacity possibly developing infiltrate Antimicrobials: Doxycycline Physical examination: Well-developed well-nourished chronically ill-appearing elderly man who is awake in no distress. Head atraumatic normocephalic sclera nonicteric neck is supple chest rise symmetrical breath sounds diminished bases. Heart: S1-S2. Abdomen soft bowel sounds present. Extremities without cyanosis. Assessment: 1. Coag negative staph bacteremia consistent with contaminant 2. Pneumonia possibly aspiration 3. Dysphagia status post PEG 4. History of CVA 5. MRSA colonization of the nares Plan: Patient remained stable, repeat MRSA swab neg, dc Doxycycline Consultation Date/Type/Reason Admit Date/Time Oct 16, 2018 at 20:02 Initial Consult Date Type of Consult id Date/Time of Note DATE: 10/25/18 TIME: 14:48 Exam/Review of Systems Exam Vitals Vital Signs Date Temp Pulse Resp B/P (MAP) Pulse Ox O2 O2 Flow FiO2 Time Delivery Rate 10/25/18 98.6 76 18 177/99 97 Room Air 08:51 (125) Intake and Output 10/24/18 10/24/18 10/25/18 1515:00 23:00 07:00 IntakeIntake Total 630 ml 1110 ml 1610 ml BalanceBalance 630 ml 1110 ml 1610 ml Results Result Diagram: 10/25/1818 10/25/18 0518 Results 24hrs Laboratory Tests Test 10/25/18 05:18 White Blood Count 7.8 Red Blood Count 4.98 Hemoglobin 13.8 L Hematocrit 40.4 L Mean Corpuscular Volume 81.1 L Mean Corpuscular Hemoglobin 27.7 L Mean Corpuscular Hemoglobin Concent 34.2 Red Cell Distribution Width 16.7 H Platelet Count 284 Mean Platelet Volume 10.1 Immature Granulocytes % 0.300 Neutrophils % 57.8 Lymphocytes % 32.4 Monocytes % 6.1 Eosinophils % 3.1 Basophils % 0.3 Nucleated Red Blood Cells % 0.0 Immature Granulocytes # 0.020 Neutrophils # 4.5 Lymphocytes # 2.5 Monocytes # 0.5 Eosinophils # 0.2 Basophils # 0.0 Nucleated Red Blood Cells # 0.0 Sodium Level 140 Potassium Level Chloride Level 107 Carbon Dioxide Level 24 Anion Gap 9 Blood Urea Nitrogen 7 Creatinine 0.46 L Est Glomerular Filtrat Rate mL/min > 60 Glucose Level 101 Calcium Level 10.1 Phosphorus Level 3.5 Magnesium Level 1.9 Medications Medication Current Medications IV Flush (NS 3 ml) 3 ml PER PROTOCOL IV ; Start 10/16/18 at 23:00 Ondansetron HCl (Zofran Inj) 4 mg Q6H PRN IV NAUSEA/VOMITING; Start 10/16/18 at 23:00 Albuterol/ Ipratropium (Duoneb) 3 ml Q2H RESP THERAPY PRN HHN SHORTNESS OF BREATH; Start 10/16/18 at 23:00 Lansoprazole (Prevacid) 30 mg DAILY@06 PO Last administered on 10/25/18 05:55; Admin Dose 30 MG; Start 10/19/18 at 06:00 Mupirocin (Bactroban) 1 applic BID TOP Last administered on 10/25/18 09:57; Admin Dose 1 APPLIC; Start 10/18/18 at 21:00 Potassium Chloride/Sodium Chloride 1,000 ml @ 60 mls/hr [id number] IV Last administered on 10/25/18 05:55; Admin Dose 60 MLS/HR; Start 10/19/18 at 16:30 Acetaminophen (Tylenol Tab) 650 mg Q6H PRN GTB .PAIN 1-3 OR TEMP Last administered on 10/23/18 19:38; Admin Dose 650 MG; Start 10/20/18 at 17:00 Atorvastatin Calcium (Lipitor) 40 mg QHS GTB Last administered on 10/24/18 21:41; Admin Dose 40 MG; Start 10/20/18 at 21:00 Clopidogrel Bisulfate (plaVIX) 75 mg DAILY GTB Last administered on 10/25/18 09:54; Admin Dose 75 MG; Start 10/21/18 at 09:00 Sertraline HCl (Zoloft) 25 mg DAILY GTB Last administered on 10/25/18 09:56; Admin Dose 25 MG; Start 10/21/18 at 09:00 Aspirin (Aspirin) 81 mg DAILY GTB Last administered on 10/25/18 09:55; Admin Dose 81 MG; Start 10/20/18 at 12:00 Lorazepam (Ativan) 1 mg Q6H PRN IV ANXIETY Last administered on 10/23/18 23:17; Admin Dose 1 MG; Start 10/20/18 at 12:00 Doxycycline Hyclate (Vibramycin) 100 mg BID GTB Last administered on 10/25/18 09:55; Admin Dose 100 MG; Start 10/20/18 at 21:00 Lactobacillus Acidophilus/ Rhamnosus (Culturelle) 1 cap BID GTB Last administered on 10/25/18 09:55; Admin Dose 1 CAP; Start 10/20/18 at 21:00 Lisinopril (Zestril) 5 mg DAILY GTB Last administered on 10/25/18 09:55; Admin Dose 5 MG; Start 10/21/18 at 11:00 Hydralazine HCl (Apresoline) 10 mg Q4H PRN IV ELEVATED SYSTOLIC BP Last administered on 10/24/18at 22:09; Admin Dose 10 MG; Start 10/22/18 at 03:00 Acetaminophen/ Hydrocodone Bitart ([place] (5/325)) 1 tab Q4H PRN GTB MODERATE PAIN LEVEL 4-6 Last administered on 10/24/18at 16:38; Admin Dose 1 TAB; Start 10/24/18 at 01:00 LUIS HOFFMAN NP Oct 25, 2018 14:49
[2018-10-25 15:25] VITALS: BP 166/99; PULSE 80; RESP 18
[2018-10-25 20:00] VITALS: BP 171/99; PULSE 79; RESP 18
[2018-10-25] MEDS: ATORVASTATIN 40 MG TAB GTB SCH (20:37)
[2018-10-25] MEDS: LORAZEPAM 2 MG INJ IV PRN (20:39)
[2018-10-25] MEDS: hydrALAzine 20 MG INJ IV PRN (22:49)
[2018-10-25] MEDS: HYDROCODONE/APAP (5/325) TAB GTB PRN (23:41)
[2018-10-26 02:00] VITALS: BP 160/78; PULSE 77; RESP 18
[2018-10-26] MEDS: LANSOPRAZOLE 30 MG CAP PO SCH (05:46)
[2018-10-26 08:00] VITALS: BP 187/90; PULSE 82; RESP 17
[2018-10-26] MEDS: LISINOPRIL 5 MG TAB GTB SCH (08:49)
[2018-10-26] MEDS: CLOPIDOGREL 75 MG TAB GTB SCH (08:49)
[2018-10-26 08:50] VITALS: BP 142/95; PULSE 77
[2018-10-26] MEDS: ASPIRIN 81 MG TAB GTB SCH (08:50)
[2018-10-26] MEDS: LACTOBACILLUS RHAMNOSUS CAP GTB SCH (08:50)
[2018-10-26] MEDS: SERTRALINE 50 MG TAB GTB SCH (08:51)
[2018-10-26] MEDS: MUPIROCIN 2% 22 GM OINT TOP SCH ×2 (08:51→20:28)
--- NOTE | 2018-10-26 12:23 | CONS ---
Assessment/Plan Assessment/Plan Hospital Course (Demo Recall) All noted. No acute changes, looks comfortable Microbiology: Blood culture on admission grew coag negative staph, repeat blood cultures negative. CT of the abdomen and pelvis on admission revealed small bowel ileus, NG tube in place with balloon in the gastric lumen. Chest x-ray revealed new right basilar opacity possibly developing infiltrate Antimicrobials: none Physical examination: Well-developed well-nourished chronically ill-appearing elderly man who is awake in no distress. Head atraumatic normocephalic sclera nonicteric neck is supple chest rise symmetrical breath sounds diminished bases. Heart: S1-S2. Abdomen soft bowel sounds present. Extremities without cyanosis. Assessment: 1. Coag negative staph bacteremia consistent with contaminant 2. Pneumonia possibly aspiration 3. Dysphagia status post PEG 4. History of CVA 5. MRSA colonization of the nares Plan: Stable, completed abx, pending dc arrangements Consultation Date/Type/Reason Admit Date/Time Oct 16, 2018 at 20:02 Initial Consult Date Type of Consult id Date/Time of Note DATE: 10/26/18 TIME: 12:23 Exam/Review of Systems Exam Vitals Vital Signs Date Temp Pulse Resp B/P (MAP) Pulse Ox O2 O2 Flow FiO2 Time Delivery Rate 10/26/18 77 142/95 08:50 (111) 10/26/18 98.0 17 98 Room Air 08:00 Intake and Output 10/25/18 10/25/18 10/26/18 1515:00 23:00 07:00 IntakeIntake Total 1660 ml 360 ml BalanceBalance 1660 ml 360 ml Results Result Diagram: 10/25/1851710/25/18517 Medications Medication Current Medications IV Flush (NS 3 ml) 3 ml PER PROTOCOL IV ; Start 10/16/18 at 23:00 Ondansetron HCl (Zofran Inj) 4 mg Q6H PRN IV NAUSEA/VOMITING; Start 10/16/18 at 23:00 Albuterol/ Ipratropium (Duoneb) 3 ml Q2H RESP THERAPY PRN HHN SHORTNESS OF BREATH; Start 10/16/18 at 23:00 Lansoprazole (Prevacid) 30 mg DAILY@06 PO Last administered on 10/26/18at 05:46; Admin Dose 30 MG; Start 10/19/18 at 06:00 Mupirocin (Bactroban) 1 applic BID TOP Last administered on 10/26/18 08:51; Admin Dose 1 APPLIC; Start 10/18/18 at 21:00 Acetaminophen (Tylenol Tab) 650 mg Q6H PRN GTB .PAIN 1-3 OR TEMP Last administered on 10/23/18 19:38; Admin Dose 650 MG; Start 10/20/18 at 17:00 Atorvastatin Calcium (Lipitor) 40 mg QHS GTB Last administered on 10/25/18 20:37; Admin Dose 40 MG; Start 10/20/18 at 21:00 Clopidogrel Bisulfate (plaVIX) 75 mg DAILY GTB Last administered on 10/26/18 08:49; Admin Dose 75 MG; Start 10/21/18 at 09:00 Sertraline HCl (Zoloft) 25 mg DAILY GTB Last administered on 10/26/18 08:51; Admin Dose 25 MG; Start 10/21/18 at 09:00 Aspirin (Aspirin) 81 mg DAILY GTB Last administered on 10/26/18 08:50; Admin Dose 81 MG; Start 10/20/18 at 12:00 Lorazepam (Ativan) 1 mg Q6H PRN IV ANXIETY Last administered on 10/25/18 20:39; Admin Dose 1 MG; Start 10/20/18 at 12:00 Lactobacillus Acidophilus/ Rhamnosus (Culturelle) 1 cap BID GTB Last administered on 10/26/18 08:50; Admin Dose 1 CAP; Start 10/20/18 at 21:00 Lisinopril (Zestril) 5 mg DAILY GTB Last administered on 10/26/18 08:49; Admin Dose 5 MG; Start 10/21/18 at 11:00 Hydralazine HCl (Apresoline) 10 mg Q4H PRN IV ELEVATED SYSTOLIC BP Last admin istered on 10/25/18 22:49; Admin Dose 10 MG; Start 10/22/18 at 03:00 Acetaminophen/ Hydrocodone Bitart ([place] (5/325)) 1 tab Q4H PRN GTB MODERATE PAIN LEVEL 4-6 Last administered on 10/25/18 23:41; Admin Dose 1 TAB; Start 10/24/18 at 01:00 LUIS HOFFMAN NP Oct 26, 2018 12:23
[2018-10-26 14:00] VITALS: BP 167/94; PULSE 72; RESP 18
[2018-10-26] MEDS: hydrALAzine 20 MG INJ IV PRN (15:00)
[2018-10-26 15:46] VITALS: BP 133/80; PULSE 77
--- NOTE | 2018-10-26 16:12 | PN ---
Date/Time of Note Date/Time of Note DATE: 10/26/18 TIME: 16:08 Assessment/Plan VTE Prophylaxis Risk score (from Nsg)>0 risk: 6 SCD applied (from Nsg): Yes Pharmacological prophylaxis: heparin Lines/Catheters IV Catheter Type (from Nrsg): Saline Lock Urinary Cath still in place: No Assessment/Plan Hospital Course This is a 68-year-old male with a past medical history of stroke with underlying dysphagia, hypertension, dyslipidemia, and chronic encephalopathy who was [facility] in from a [facility] facility because of reported abdominal pain and reported hematemesis and found to have pneumonia Pneumonia. - s/p antibiotics course History of stroke. -Continue dual antiplatelet therapy. -Continue statins. Dysphagia. - tube feeds Vascular dementia is stable Plan. -Plan is to discharge the patient home with home health when family is ready to accept. Home tube feeds being arranged Result Diagram: 10/25/1851710/25/18517 Subjective 24 Hr Interval Summary Free Text/Dictation Makenna is comfortable Family planning to take him to [facility] at discharge Exam/Review of Systems Exam Vitals Vital Signs Date Temp Pulse Resp B/P (MAP) Pulse Ox O2 O2 Flow FiO2 Time Delivery Rate 10/26/18 77 133/80 15:46 (97) 10/26/18 98.0 18 99 Room Air 14:00 Intake and Output 10/25/18 10/25/18 10/26/18 1515:00 23:00 07:00 IntakeIntake Total 1660 ml 360 ml BalanceBalance 1660 ml 360 ml Exam Resting comfortably no distress Alert, a bit somnulent Interactive Breathign comfortably RRR G tube Soft nt nd warm no edema Medications Medication Current Medications IV Flush (NS 3 ml) 3 ml PER PROTOCOL IV ; Start 10/16/18 at 23:00 Ondansetron HCl (Zofran Inj) 4 mg Q6H PRN IV NAUSEA/VOMITING; Start 10/16/18 at 23:00 Albuterol/ Ipratropium (Duoneb) 3 ml Q2H RESP THERAPY PRN HHN SHORTNESS OF BREATH; Start 10/16/18 at 23:00 Lansoprazole (Prevacid) 30 mg DAILY@06 PO Last administered on 10/26/18at 05:46; Admin Dose 30 MG; Start 10/19/18 at 06:00 Mupirocin (Bactroban) 1 applic BID TOP Last administered on 10/26/18 08:51; Admin Dose 1 APPLIC; Start 10/18/18 at 21:00 Acetaminophen (Tylenol Tab) 650 mg Q6H PRN GTB .PAIN 1-3 OR TEMP Last administered on 10/23/18 19:38; Admin Dose 650 MG; Start 10/20/18 at 17:00 Atorvastatin Calcium (Lipitor) 40 mg QHS GTB Last administered on 10/25/18 20:37; Admin Dose 40 MG; Start 10/20/18 at 21:00 Clopidogrel Bisulfate (plaVIX) 75 mg DAILY GTB Last administered on 10/26/18 08:49; Admin Dose 75 MG; Start 10/21/18 at 09:00 Sertraline HCl (Zoloft) 25 mg DAILY GTB Last administered on 10/26/18 08:51; Admin Dose 25 MG; Start 10/21/18 at 09:00 Aspirin (Aspirin) 81 mg DAILY GTB Last administered on 10/26/18 08:50; Admin Dose 81 MG; Start 10/20/18 at 12:00 Lorazepam (Ativan) 1 mg Q6H PRN IV ANXIETY Last administered on 10/25/18 20:39; Admin Dose 1 MG; Start 10/20/18 at 12:00 Lactobacillus Acidophilus/ Rhamnosus (Culturelle) 1 cap BID GTB Last administered on 10/26/18 08:50; Admin Dose 1 CAP; Start 10/20/18 at 21:00 Lisinopril (Zestril) 5 mg DAILY GTB Last administered on 10/26/18 08:49; Admin Dose 5 MG; Start 10/21/18 at 11:00 Hydralazine HCl (Apresoline) 10 mg Q4H PRN IV ELEVATED SYSTOLIC BP Last administered on 10/26/18 15:00; Admin Dose 10 MG; Start 10/22/18 at 03:00 Acetaminophen/ Hydrocodone Bitart ([place] (5/325)) 1 tab Q4H PRN GTB MODERATE PAIN LEVEL 4-6 Last administered on 10/25/18 23:41; Admin Dose 1 TAB; Start 10/24/18 at 01:00 ARTIS MELENDEZ MD Oct 26, 2018 16:12
[2018-10-26 20:25] VITALS: BP 128/87; PULSE 87; RESP 18
[2018-10-26] MEDS: ATORVASTATIN 40 MG TAB GTB SCH (20:28)
[2018-10-27] MEDS: LORAZEPAM 2 MG INJ IV PRN ×2 (01:14→22:00)
[2018-10-27 02:25] VITALS: BP 173/104; PULSE 78; RESP 20
[2018-10-27] MEDS: hydrALAzine 20 MG INJ IV PRN (02:46)
[2018-10-27] MEDS: LANSOPRAZOLE 30 MG CAP PO SCH (05:40)
[2018-10-27 07:58] VITALS: BP 177/80; PULSE 86; RESP 19
[2018-10-27] MEDS: SERTRALINE 50 MG TAB GTB SCH (09:27)
[2018-10-27] MEDS: ASPIRIN 81 MG TAB GTB SCH (09:27)
[2018-10-27] MEDS: CLOPIDOGREL 75 MG TAB GTB SCH (09:27)
[2018-10-27] MEDS: LISINOPRIL 5 MG TAB GTB SCH (09:28)
[2018-10-27] MEDS: MUPIROCIN 2% 22 GM OINT TOP SCH ×2 (09:29→22:01)
--- NOTE | 2018-10-27 12:09 | PN ---
Date/Time of Note Date/Time of Note DATE: 10/27/18 TIME: 12:09 Assessment/Plan VTE Prophylaxis Risk score (from Ns)>0 risk: 3 SCD applied (from [facility]): Yes Pharmacological prophylaxis: NA/contraindicated Pharm contraindication: anticoag not tolerated Lines/Catheters [facility] Saline Lock Urinary Cath still in place: No Assessment/Plan Hospital Course SUBJECTIVE: No acute overnight episodes OBJECTIVE: Vital signs-see below PHYSICAL EXAM: Constitutional: Chronically ill looking male, no acute distress HEENT: Head atraumatic and normocephalic. Eyes: Extraocular muscles intact. Anicteric sclerae. Pupils equal bilaterally, reactive to light. NECK: Supple without lymph node. CHEST: Clear and good breath sounds equally. No wheezing. No rhonchi. HEART: S1, S2. Regular rate and rhythm. ABDOMEN: Soft with no rebound tenderness. Bowel sounds were present. EXTREMITIES:left sided hemiplegia. No cyanosis, clubbing or edema. NEUROLOGIC: Alert and oriented x1. Somnolent/confused..+Left hemiplegic. PSYCHOSOCIAL: In a good mood. No signs of depression. INTEGUMENTARY: Moist mucous membranes. Good skin turgor, intact. ASSESSMENT AND PLAN: 68-year-old male with a past medical history of stroke with underlying dysphagia, hypertension, dyslipidemia, and chronic encephalopathy admitted w/cough/congestion found to have pneumonia Pneumonia. - s/p antibiotics course History of stroke. -Continue dual antiplatelet therapy. -Continue statins. Dysphagia. - tube feeds Vascular dementia -stable DVT prophylaxis. -Bilateral SCDs. -Plan is to discharge the patient home with home health ..Home tube feeds being arranged.. Patient was seen in collaboration with Dr. Mai. Result Diagram: 10/25/1851710/25/18517 Exam/Review of Systems Exam Vitals Vital Signs Date Temp Pulse Resp B/P (MAP) Pulse Ox O2 O2 Flow FiO2 Time Delivery Rate 10/27/18 98.4 86 19 177/80 95 Room Air 07:58 (112) Intake and Output 10/26/18 10/26/18 10/27/18 1515:00 23:00 07:00 IntakeIntake Total 300 ml 1120 ml OutputOutput Total 4 ml BalanceBalance 300 ml 1116 ml Medications Medication Current Medications IV Flush (NS 3 ml) 3 ml PER PROTOCOL IV ; Start 10/16/18 at 23:00 Ondansetron HCl (Zofran Inj) 4 mg Q6H PRN IV NAUSEA/VOMITING; Start 10/16/18 at 23:00 Albuterol/ Ipratropium (Duoneb) 3 ml Q2H RESP THERAPY PRN HHN SHORTNESS OF BREATH; Start 10/16/18 at 23:00 Lansoprazole (Prevacid) 30 mg DAILY@06 PO Last administered on 10/27/18 05:40; Admin Dose 30 MG; Start 10/19/18 at 06:00 Mupirocin (Bactroban) 1 applic BID TOP Last administered on 10/27/18 09:29; Admin Dose 1 APPLIC; Start 10/18/18 at 21:00 Acetaminophen (Tylenol Tab) 650 mg Q6H PRN GTB .PAIN 1-3 OR TEMP Last administered on 10/23/18 19:38; Admin Dose 650 MG; Start 10/20/18 at 17:00 Atorvastatin Calcium (Lipitor) 40 mg QHS GTB Last administered on 10/26/18 20:28; Admin Dose 40 MG; Start 10/20/18 at 21:00 Clopidogrel Bisulfate (plaVIX) 75 mg DAILY GTB Last administered on 10/27/18 09:27; Admin Dose 75 MG; Start 10/21/18 at 09:00 Sertraline HCl (Zoloft) 25 mg DAILY GTB Last administered on 10/27/18 09:27; Admin Dose 25 MG; Start 10/21/18 at 09:00 Aspirin (Aspirin) 81 mg DAILY GTB Last administered on 10/27/18 09:27; Admin Dose 81 MG; Start 10/20/18 at 12:00 Lorazepam (Ativan) 1 mg Q6H PRN IV ANXIETY Last administered on 10/27/18 01:14; Admin Dose 1 MG; Start 10/20/18 at 12:00 Lisinopril (Zestril) 5 mg DAILY GTB Last administered on 10/27/18 09:28; Admin Dose 5 MG; Start 10/21/18 at 11:00 Hydralazine HCl (Apresoline) 10 mg Q4H PRN IV ELEVATED SYSTOLIC BP Last administered on 10/27/18 02:46; Admin Dose 10 MG; Start 10/22/18 at 03:00 Acetaminophen/ Hydrocodone Bitart ([place] (5/325)) 1 tab Q4H PRN GTB MODERATE PAIN LEVEL 4-6 Last administered on 10/25/18at 23:41; Admin Dose 1 TAB; Start 10/24/18 at 01:00 EDWARD MIGUEL NP Oct 27, 2018 12:09
[2018-10-27 14:00] VITALS: BP 145/83; PULSE 75; RESP 18
[2018-10-27] MEDS: HYDROCODONE/APAP (5/325) TAB GTB PRN (15:38)
[2018-10-27 20:20] VITALS: BP 153/93; PULSE 77; RESP 18
[2018-10-27] MEDS: ATORVASTATIN 40 MG TAB GTB SCH (22:01)
[2018-10-28 02:20] VITALS: BP 151/87; PULSE 85; RESP 18
[2018-10-28] MEDS: LANSOPRAZOLE 30 MG CAP PO SCH (06:23)
[2018-10-28 07:53] VITALS: BP 133/69; PULSE 69; RESP 18
[2018-10-28] MEDS: SERTRALINE 50 MG TAB GTB SCH (09:01)
[2018-10-28] MEDS: ASPIRIN 81 MG TAB GTB SCH (09:01)
[2018-10-28] MEDS: MUPIROCIN 2% 22 GM OINT TOP SCH ×2 (09:01→20:10)
[2018-10-28] MEDS: CLOPIDOGREL 75 MG TAB GTB SCH (09:01)
[2018-10-28] MEDS: LISINOPRIL 5 MG TAB GTB SCH (09:02)
--- NOTE | 2018-10-28 12:31 | DS ---
Date/Time of Note Date/Time of Note DATE: 10/28/18 TIME: 12:28 Discharge Summary Admission/Discharge Info Admit Date/Time Oct 16, 2018 at 20:02 Discharge Date/Time Discharge Diagnosis Pneumonia.RESOLVED History of stroke. Dysphagia, tube feeds Vascular dementia Patient Condition: Stable Procedures 10/16/2018. Chest x-ray IMPRESSION: Minimal new right basilar opacity possibly representing developing infiltrate. Hospital Course 68-year-old male with a past medical history of stroke with underlying dysphagia, hypertension, dyslipidemia, and chronic encephalopathy admitted w/ cough/congestion found to have pneumonia. Patient was treated with appropriate antimicrobials with clinical and radiographic evidence of pneumonia resolution. Patient was continued on antiplatelet therapy for history of stroke along with statins. Patient was continued on G-tube feeding. Patient did well. At this time, he is stable for discharge and family opted to take him to [place] in [place] with home health and tube feeding assistance. This was arranged through case management. Approximately 60 m spent on coordinating the discharge on this patient. Patient was seen in collaboration with [facility] Active Scripts Lisinopril* (Lisinopril*) 5 Mg Tablet, 5 MG GTB DAILY, #30 TAB Prov:EDELMIRA HERZOG G[employer] EXAMINER 10/23/18 Reported Medications Atorvastatin* (Atorvastatin*) 40 Mg Tablet, 40 MG GTB QHS, #30 TAB 10/16/18 Sennosides* (Senna Lax*) 8.6 Mg Tablet, 1 TAB GTB DAILY, TAB 10/16/18 Docusate Sodium* (Docusate Sodium*) 100 Mg Capsule, 100 MG GTB DAILY, #30 CAP 10/16/18 Hydrochlorothiazide* (Hydrochlorothiazide*) 25 Mg Tab, 25 MG GTB DAILY, #30 TAB 10/16/18 Aspirin* (Aspirin* EC) 81 Mg Tablet., 81 MG GTB DAILY, TAB 10/16/18 Ondansetron Hcl* (Zofran*) 4 Mg Tablet, 4 MG PO Q6H PRN for NAUSEA AND OR VOMITING, TAB 10/16/18 Clopidogrel Bisulfate (Clopidogrel) 75 Mg Tablet, 75 MG PO DAILY, #30 TAB 10/16/18 Sertraline Hcl* (Zoloft*) 25 Mg Tablet, 25 MG PO DAILY, #30 TAB 10/16/18 Lorazepam* (Lorazepam*) 1 Mg Tablet, 1 MG PO TID PRN for ANXIETY, #30 TAB 10/16/18 [Dulcolax Supp] No Conflict Check, 1 RECTAL DAILY for CONSTIPATION 10/16/18 Follow-up Plan Patient to follow-up with his primary care physician. Primary Care Provider Care Physician No Primary EDWARD MIGUEL NP Oct 28, 2018 12:31
[2018-10-28 14:38] VITALS: BP 142/69; PULSE 75; RESP 18
[2018-10-28] MEDS: ATORVASTATIN 40 MG TAB GTB SCH (20:02)
[2018-10-28] MEDS: HYDROCODONE/APAP (5/325) TAB GTB PRN (20:02)
[2018-10-28 20:29] VITALS: BP 164/95; PULSE 71; RESP 20
[2018-10-29] MEDS: LORAZEPAM 2 MG INJ IV PRN (00:32)
[2018-10-29 02:26] VITALS: BP 152/78; PULSE 75; RESP 18
[2018-10-29] MEDS: HYDROCODONE/APAP (5/325) TAB GTB PRN ×3 (02:57→18:47)
[2018-10-29] MEDS: LANSOPRAZOLE 30 MG CAP PO SCH (05:26)
[2018-10-29 08:17] VITALS: BP 137/97; PULSE 73; RESP 18
[2018-10-29] MEDS: CLOPIDOGREL 75 MG TAB GTB SCH (09:01)
[2018-10-29] MEDS: ASPIRIN 81 MG TAB GTB SCH (09:01)
[2018-10-29] MEDS: SERTRALINE 50 MG TAB GTB SCH (09:02)
[2018-10-29] MEDS: LISINOPRIL 5 MG TAB GTB SCH (09:03)
[2018-10-29] MEDS: MUPIROCIN 2% 22 GM OINT TOP SCH (09:05)
--- NOTE | 2018-10-29 10:45 | PN ---
Date/Time of Note Date/Time of Note DATE: 10/29/18 TIME: 10:41 Assessment/Plan VTE Prophylaxis Risk score (from Ns)>0 risk: 5 SCD applied (from [facility]): Yes Pharmacological prophylaxis: NA/contraindicated Pharm contraindication: anticoag not tolerated Lines/Catheters [facility]from [facility] Saline Lock Urinary Cath still in place: No Assessment/Plan Hospital Course SUBJECTIVE: No acute overnight episodes OBJECTIVE: Vital signs-see below PHYSICAL EXAM: Constitutional: Chronically ill looking male, no acute distress HEENT: Head atraumatic and normocephalic. Eyes: Extraocular muscles intact. Anicteric sclerae. Pupils equal bilaterally, reactive to light. NECK: Supple without lymph node. CHEST: Clear and good breath sounds equally. No wheezing. No rhonchi. HEART: S1, S2. Regular rate and rhythm. ABDOMEN: Soft with no rebound tenderness. Bowel sounds were present. EXTREMITIES:left sided hemiplegia. No cyanosis, clubbing or edema. NEUROLOGIC: Alert and oriented x1. Somnolent/confused..+Left hemiplegic. PSYCHOSOCIAL: In a good mood. No signs of depression. INTEGUMENTARY: Moist mucous membranes. Good skin turgor, intact. ASSESSMENT AND PLAN: 68-year-old male with a past medical history of stroke with underlying dysphagia, hypertension, dyslipidemia, and chronic encephalopathy admitted w/cough/congestion found to have pneumonia Pneumonia. - s/p antibiotics course History of stroke. -Continue dual antiplatelet therapy. -Continue statins. Dysphagia. - tube feeds Vascular dementia -stable DVT prophylaxis. -Bilateral SCDs. Debility -ECF placement Disposition:CM working on SNF placement Patient was seen in collaboration with Dr. Mai. Cont Hosp Indication/DC Plan: SNF placement Result Diagram: 10/25/1851710/25/1818 Exam/Review of Systems Exam Vitals Vital Signs Date Temp Pulse Resp B/P (MAP) Pulse Ox O2 O2 Flow FiO2 Time Delivery Rate 10/29/18 98.0 73 18 137/97 98 Room Air 08:17 (110) Medications Medication Current Medications IV Flush (NS 3 ml) 3 ml PER PROTOCOL IV ; Start 10/16/18 at 23:00 Ondansetron HCl (Zofran Inj) 4 mg Q6H PRN IV NAUSEA/VOMITING; Start 10/16/18 at 23:00 Albuterol/ Ipratropium (Duoneb) 3 ml Q2H RESP THERAPY PRN HHN SHORTNESS OF BREATH; Start 10/16/18 at 23:00 Lansoprazole (Prevacid) 30 mg DAILY@06 PO Last administered on 10/29/18 05:26; Admin Dose 30 MG; Start 10/19/18 at 06:00 Mupirocin (Bactroban) 1 applic BID TOP Last administered on 10/29/18 09:05; Admin Dose 1 APPLIC; Start 10/18/18 at 21:00 Acetaminophen (Tylenol Tab) 650 mg Q6H PRN GTB .PAIN 1-3 OR TEMP Last administered on 10/23/18 19:38; Admin Dose 650 MG; Start 10/20/18 at 17:00 Atorvastatin Calcium (Lipitor) 40 mg QHS GTB Last administered on 10/28/18 20: 02; Admin Dose 40 MG; Start 10/20/18 at 21:00 Clopidogrel Bisulfate (plaVIX) 75 mg DAILY GTB Last administered on 10/29/18 09:01; Admin Dose 75 MG; Start 10/21/18 at 09:00 Sertraline HCl (Zoloft) 25 mg DAILY GTB Last administered on 10/29/18 09:02; Admin Dose 25 MG; Start 10/21/18 at 09:00 Aspirin (Aspirin) 81 mg DAILY GTB Last administered on 10/29/18 09:01; Admin Dose 81 MG; Start 10/20/18 at 12:00 Lorazepam (Ativan) 1 mg Q6H PRN IV ANXIETY Last administered on 10/29/18 00:32; Admin Dose 1 MG; Start 10/20/18 at 12:00 Lisinopril (Zestril) 5 mg DAILY GTB Last administered on 10/29/18 09:03; Admin Dose 5 MG; Start 10/21/18 at 11:00 Hydralazine HCl (Apresoline) 10 mg Q4H PRN IV ELEVATED SYSTOLIC BP Last administered on 10/27/18 02:46; Admin Dose 10 MG; Start 10/22/18 at 03:00 Acetaminophen/ Hydrocodone Bitart ([place] (5/325)) 1 tab Q4H PRN GTB MODERATE PAIN LEVEL 4-6 Last administered on 4/26/19at 02:57; Admin Dose 1 TAB; Start 10/24/18 at 01:00 EDWARD MIGUEL NP Oct 29, 2018 10:45
[2018-10-29 14:43] VITALS: BP 128/88; PULSE 74; RESP 18
[2018-10-29 20:17] VITALS: BP 148/93; PULSE 67; RESP 20
[2018-10-29] MEDS: ACETAMINOPHEN 325 MG TAB GTB PRN (21:00)
[2018-10-30] MEDS: MUPIROCIN 2% 22 GM OINT TOP SCH ×3 (00:04→21:47)
[2018-10-30] MEDS: LORAZEPAM 2 MG INJ IV PRN ×2 (00:05→22:59)
[2018-10-30] MEDS: ATORVASTATIN 40 MG TAB GTB SCH ×2 (00:06→21:45)
[2018-10-30] MEDS: HYDROCODONE/APAP (5/325) TAB GTB PRN ×4 (02:08→21:47)
[2018-10-30] MEDS: LANSOPRAZOLE 30 MG CAP PO SCH (05:29)
[2018-10-30 07:55] VITALS: BP 146/85; PULSE 65; RESP 16
[2018-10-30] MEDS: CLOPIDOGREL 75 MG TAB GTB SCH (09:15)
[2018-10-30] MEDS: SERTRALINE 50 MG TAB GTB SCH (09:16)
[2018-10-30] MEDS: LISINOPRIL 5 MG TAB GTB SCH (09:16)
[2018-10-30] MEDS: ASPIRIN 81 MG TAB GTB SCH (09:21)
[2018-10-30 14:30] VITALS: BP 141/86; PULSE 60; RESP 18
--- NOTE | 2018-10-30 16:21 | PN ---
Date/Time of Note Date/Time of Note DATE: 10/30/18 TIME: 16:15 Assessment/Plan VTE Prophylaxis Risk score (from Ns)>0 risk: 6 SCD applied (from Ns): Yes Pharmacological prophylaxis: heparin Lines/Catheters IV Catheter Type (from Nrsg): Saline Lock Urinary Cath still in place: No Assessment/Plan Problems: (1) Aspiration pneumonia of right lower lobe Onset Date: ~ 10/16/2018 Status: Acute Comment: Please see the work-up from swallowing. This gentleman has a PEG tube and that is how he is being fed. His pneumonia has been adequately treated with antibiotics. Qualifiers: Aspiration pneumonia type: unspecified Qualified Codes: J69.0 - Pneumonitis due to inhalation of food and vomit (2) At high risk for aspiration Status: Chronic Comment: Tube feeding via PEG (3) S/P percutaneous endoscopic gastrostomy (PEG) tube placement Status: Chronic Comment: As above. (4) History of CVA (cerebrovascular accident) Status: Chronic Comment: Noted and on antiplatelet therapy (5) Vascular dementia Status: Chronic Comment: Noted. Qualifiers: Dementia behavioral disturbance: without behavioral disturbance Qualified Codes: F01.50 - Vascular dementia without behavioral disturbance (6) Debility Status: Chronic Comment: Case management to assist with placement (7) MRSA nasal colonization Status: Chronic Comment: Noted. Subjective 24 Hr Interval Summary Free Text/Dictation Patient perseverating about pain although the nursing staff who knows well indicates that this is not actually his mechanism for expressing pain Exam/Review of Systems Exam Vitals Vital Signs Date Temp Pulse Resp B/P (MAP) Pulse Ox O2 O2 Flow FiO2 Time Delivery Rate 10/30/18 98.0 60 18 141/86 96 14:30 (104) 10/29/18 Room Air 14:43 Intake and Output 10/29/18 10/29/18 10/30/18 1515:00 23:00 07:00 IntakeIntake Total 1220 ml BalanceBalance 1220 ml Constitutional: alert Respiratory: clear to auscultation, normal air movement Cardiovascular: regular rate and rhythm, nl pulses Gastrointestinal: soft, nl liver, spleen, non-tender Medications Medication Current Medications IV Flush (NS 3 ml) 3 ml PER PROTOCOL IV ; Start 10/16/18 at 23:00 Ondansetron HCl (Zofran Inj) 4 mg Q6H PRN IV NAUSEA/VOMITING; Start 10/16/18 at 23:00 Albuterol/ Ipratropium (Duoneb) 3 ml Q2H RESP THERAPY PRN HHN SHORTNESS OF BREATH; Start 10/16/18 at 23:00 Lansoprazole (Prevacid) 30 mg DAILY@06 PO Last administered on 10/30/18 05:29; Admin Dose 30 MG; Start 10/19/18 at 06:00 Mupirocin (Bactroban) 1 applic BID TOP Last administered on 10/30/18 09:17; Admin Dose 1 APPLIC; Start 10/18/18 at 21:00 Acetaminophen (Tylenol Tab) 650 mg Q6H PRN GTB .PAIN 1-3 OR TEMP Last administered on 10/29/18 21:00; Admin Dose 650 MG; Start 10/20/18 at 17:00 Atorvastatin Calcium (Lipitor) 40 mg QHS GTB Last administered on 10/30/18 00:06; Admin Dose 40 MG; Start 10/20/18 at 21:00 Clopidogrel Bisulfate (plaVIX) 75 mg DAILY GTB Last administered on 10/30/18 09:15; Admin Dose 75 MG; Start 10/21/18 at 09:00 Sertraline HCl (Zoloft) 25 mg DAILY GTB Last administered on 10/30/18 09:16; Admin Dose 25 MG; Start 10/21/18 at 09:00 Aspirin (Aspirin) 81 mg DAILY GTB Last administered on 10/30/18 09:21; Admin Dose 81 MG; Start 10/20/18 at 12:00 Lorazepam (Ativan) 1 mg Q6H PRN IV ANXIETY Last administered on 10/30/18 00:05; Admin Dose 1 MG; Start 10/20/18 at 12:00 Lisinopril (Zestril) 5 mg DAILY GTB Last administered on 10/30/18 09:16; Admin Dose 5 MG; Start 10/21/18 at 11:00 Hydralazine HCl (Apresoline) 10 mg Q4H PRN IV ELEVATED SYSTOLIC BP Last administered on 10/27/18 02:46; Admin Dose 10 MG; Start 10/22/18 at 03:00 Acetaminophen/ Hydrocodone Bitart ([place] (5/325)) 1 tab Q4H PRN GTB MODERATE PAIN LEVEL 4-6 Last administered on 10/30/18at 09:21; Admin Dose 1 TAB; Start 10/24/18 at 01:00 MAYTE PANG MD Oct 30, 2018 16:21
[2018-10-30 20:00] VITALS: BP 137/85; PULSE 68; RESP 18
[2018-10-30] MEDS ORDERED: LORAZEPAM 2 MG INJ IV ONE (23:30)
[2018-10-30] MEDS ORDERED: HALOPERIDOL 5 MG INJ IM ONE (23:30)
[2018-10-30] MEDS ORDERED: DIPHENHYDRAMINE 50 MG INJ IV ONE (23:30)
[2018-10-31 02:00] VITALS: BP 139/78; PULSE 84; RESP 18
[2018-10-31] MEDS: LANSOPRAZOLE 30 MG CAP PO SCH (05:32)
[2018-10-31 08:19] VITALS: BP 155/91; PULSE 70; RESP 16
--- NOTE | 2018-10-31 09:32 | PN ---
Date/Time of Note Date/Time of Note DATE: 10/31/18 TIME: 09:28 Assessment/Plan VTE Prophylaxis Risk score (from Ns)>0 risk: 6 SCD applied (from Ns): Yes Pharmacological prophylaxis: heparin Lines/Catheters IV [facility] (from [facility] Saline Lock Urinary Cath still in place: No Assessment/Plan Problems: (1) Aspiration pneumonia of right lower lobe Onset Date: ~ 10/16/2018 Status: Acute Comment: Continue with treatment. Working on discharge planning Qualifiers: Aspiration pneumonia type: unspecified Qualified Codes: J69.0 - Pneumonitis due to inhalation of food and vomit (2) At high risk for aspiration Status: Chronic Comment: Noted and being fed via PEG tube (3) History of CVA (cerebrovascular accident) Status: Chronic Comment: Stable. (4) Vascular dementia Status: Chronic Comment: Noted. On appropriate treatment as best as able under circumstance Qualifiers: Dementia behavioral disturbance: without behavioral disturbance Qualified Codes: F01.50 - Vascular dementia without behavioral disturbance (5) Debility Status: Chronic Comment: Persistent and he will need placement. (6) MRSA nasal colonization Status: Chronic Comment: Noted. This is interfering with placement or swelling is down at least Subjective 24 Hr Interval Summary Constitutional: no complaints Exam/Review of Systems Exam Vitals Vital Signs Date Temp Pulse Resp B/P (MAP) Pulse Ox O2 O2 Flow FiO2 Time Delivery Rate 10/31/18 98.0 70 16 155/91 95 08:19 (112) 10/29/18 Room Air 14:43 Intake and Output 10/30/18 10/30/18 10/31/18 1515:00 23:00 07:00 IntakeIntake Total 1220 ml BalanceBalance 1220 ml Respiratory: clear to auscultation, normal air movement Cardiovascular: regular rate and rhythm, nl pulses Gastrointestinal: soft, nl liver, spleen, non-tender Extremities: normal pulses Medications Medication Current Medications IV Flush (NS 3 ml) 3 ml PER PROTOCOL IV ; Start 10/16/18 at 23:00 Ondansetron HCl (Zofran Inj) 4 mg Q6H PRN IV NAUSEA/VOMITING; Start 10/16/18 at 23:00 Albuterol/ Ipratropium (Duoneb) 3 ml Q2H RESP THERAPY PRN HHN SHORTNESS OF BREATH; Start 10/16/18 at 23:00 Lansoprazole (Prevacid) 30 mg DAILY@06 PO Last administered on 10/31/18 05:32; Admin Dose 30 MG; Start 10/19/18 at 06:00 Mupirocin (Bactroban) 1 applic BID TOP Last administered on 10/30/18 21:47; Admin Dose 1 APPLIC; Start 10/18/18 at 21:00 Acetaminophen (Tylenol Tab) 650 mg Q6H PRN GTB .PAIN 1-3 OR TEMP Last administered on 10/29/18 21:00; Admin Dose 650 MG; Start 10/20/18 at 17:00 Atorvastatin Calcium (Lipitor) 40 mg QHS GTB Last administered on 10/30/18 21:45; Admin Dose 40 MG; Start 10/20/18 at 21:00 Clopidogrel Bisulfate (plaVIX) 75 mg DAILY GTB Last administered on 10/30/18 09:15; Admin Dose 75 MG; Start 10/21/18 at 09:00 Sertraline HCl (Zoloft) 25 mg DAILY GTB Last administered on 10/30/18 09:16; Admin Dose 25 MG; Start 10/21/18 at 09:00 Aspirin (Aspirin) 81 mg DAILY GTB Last administered on 10/30/18 09:21; Admin Dose 81 MG; Start 10/20/18 at 12:00 Lorazepam (Ativan) 1 mg Q6H PRN IV ANXIETY Last administered on 10/30/18 22:59; Admin Dose 1 MG; Start 10/20/18 at 12:00 Lisinopril (Zestril) 5 mg DAILY GTB Last administered on 10/30/18 09:16; Admin Dose 5 MG; Start 10/21/18 at 11:00 Hydralazine HCl (Apresoline) 10 mg Q4H PRN IV ELEVATED SYSTOLIC BP Last administered on 10/27/18 02:46; Admin Dose 10 MG; Start 10/22/18 at 03:00 Acetaminophen/ Hydrocodone Bitart ([place] (5/325)) 1 tab Q4H PRN GTB MODERATE PAIN LEVEL 4-6 Last administered on 10/30/18 21:47; Admin Dose 1 TAB; Start 10/24/18 at 01:00 MAYTE PANG MD Oct 31, 2018 09:32
[2018-10-31] MEDS: CLOPIDOGREL 75 MG TAB GTB SCH (11:00)
[2018-10-31] MEDS: ASPIRIN 81 MG TAB GTB SCH (11:00)
[2018-10-31] MEDS: LISINOPRIL 5 MG TAB GTB SCH (11:01)
[2018-10-31] MEDS: SERTRALINE 50 MG TAB GTB SCH (11:01)
[2018-10-31] MEDS: MUPIROCIN 2% 22 GM OINT TOP SCH (11:02)
[2018-10-31 14:30] VITALS: BP 140/85; PULSE 75; RESP 18
[2018-10-31] MEDS: HYDROCODONE/APAP (5/325) TAB GTB PRN ×2 (16:49→20:36)
[2018-10-31 20:00] VITALS: BP_SYST 133; BP_SYST 162; BP_DIAS 65; BP_DIAS 81; PULSE 65; PULSE 84; RESP 18
[2018-10-31] MEDS: ATORVASTATIN 40 MG TAB GTB SCH (20:35)
[2018-11-01] MEDS: LORAZEPAM 2 MG INJ IV PRN ×2 (00:40→21:43)
[2018-11-01] MEDS: MUPIROCIN 2% 22 GM OINT TOP SCH ×3 (00:40→21:45)
[2018-11-01 02:00] VITALS: BP 153/98; PULSE 73; RESP 17
[2018-11-01] MEDS: LANSOPRAZOLE 30 MG CAP PO SCH (06:00)
[2018-11-01 08:34] VITALS: BP 124/84; PULSE 67; RESP 17
[2018-11-01] MEDS: LISINOPRIL 5 MG TAB GTB SCH (08:52)
[2018-11-01] MEDS: CLOPIDOGREL 75 MG TAB GTB SCH (08:52)
[2018-11-01] MEDS: SERTRALINE 50 MG TAB GTB SCH (08:52)
[2018-11-01] MEDS: ASPIRIN 81 MG TAB GTB SCH (08:52)
--- NOTE | 2018-11-01 10:58 | PN ---
Date/Time of Note Date/Time of Note DATE: 11/01/18 TIME: 10:57 Assessment/Plan VTE Prophylaxis Risk score (from Ns)>0 risk: 5 SCD applied (from Ns): Yes Pharmacological prophylaxis: NA/contraindicated Pharm contraindication: other (on DAPT) Lines/Catheters IV [facility]ter [facility]from [facility]): [place] Urinary Cath still in place: No Assessment/Plan Hospital Course SUBJECTIVE: No acute overnight episodes OBJECTIVE: Vital signs-see below PHYSICAL EXAM: Constitutional: Chronically ill looking male, no acute distress HEENT: Head atraumatic and normocephalic. Eyes: Extraocular muscles intact. Anicteric sclerae. Pupils equal bilaterally, reactive to light. NECK: Supple without lymph node. CHEST: Clear and good breath sounds equally. No wheezing. No rhonchi. HEART: S1, S2. Regular rate and rhythm. ABDOMEN: Soft with no rebound tenderness. Bowel sounds were present. EXTREMITIES:left sided hemiplegia. No cyanosis, clubbing or edema. NEUROLOGIC: Alert and oriented x1. Somnolent/confused..+Left hemiplegic. PSYCHOSOCIAL: In a good mood. No signs of depression. INTEGUMENTARY: Moist mucous membranes. Good skin turgor, intact. ASSESSMENT AND PLAN: 68-year-old male with a past medical history of stroke with underlying dysphagia, hypertension, dyslipidemia, and chronic encephalopathy admitted w/cough/congestion found to have pneumonia Pneumonia. - s/p antibiotics course History of stroke. -Continue dual antiplatelet therapy. -Continue statins. Dysphagia. - tube feeds Vascular dementia -stable DVT prophylaxis. -Bilateral SCDs. Debility -ECF placement Hypertension -Needs more control. I will adjust lisinopril dose, hopefully patient does not need IV hydralazine PRN. Disposition:CM working on SNF placement. Monitor blood pressure over the next 24 hours in-house. Patient was seen in collaboration with Exam/Review of Systems Exam Vitals Vital Signs Date Temp Pulse Resp B/P (MAP) Pulse Ox O2 O2 Flow FiO2 Time Delivery Rate 11/01/18 97.8 67 17 124/84 96 08:34 (97) 10/29/18 Room Air 14:43 Intake and Output 10/31/18 10/31/18 11/01/18 1414:59 22:59 06:59 IntakeIntake Total 920 ml 700 ml BalanceBalance 920 ml 700 ml Medications Medication Current Medications IV Flush (NS 3 ml) 3 ml PER PROTOCOL IV ; Start 10/16/18 at 23:00 Ondansetron HCl (Zofran Inj) 4 mg Q6H PRN IV NAUSEA/VOMITING; Start 10/16/18 at 23:00 Albuterol/ Ipratropium (Duoneb) 3 ml Q2H RESP THERAPY PRN HHN SHORTNESS OF BREATH; Start 10/16/18 at 23:00 Lansoprazole (Prevacid) 30 mg DAILY@06 PO Last administered on 10/31/18 05:32; Admin Dose 30 MG; Start 10/19/18 at 06:00 Mupirocin (Bactroban) 1 applic BID TOP Last administered on 11/01/18 08:53; Admin Dose 1 APPLIC; Start 10/18/18 at 21:00 Acetaminophen (Tylenol Tab) 650 mg Q6H PRN GTB .PAIN 1-3 OR TEMP Last administered on 10/29/18 21:00; Admin Dose 650 MG; Start 10/20/18 at 17:00 Atorvastatin Calcium (Lipitor) 40 mg QHS GTB Last administered on 10/31/18 20:35; Admin Dose 40 MG; Start 10/20/18 at 21:00 Clopidogrel Bisulfate (plaVIX) 75 mg DAILY GTB Last administered on 11/01/18 08:52; Admin Dose 75 MG; Start 10/21/18 at 09:00 Sertraline HCl (Zoloft) 25 mg DAILY GTB Last administered on 11/01/18 08:52; Admin Dose 25 MG; Start 10/21/18 at 09:00 Aspirin (Aspirin) 81 mg DAILY GTB Last administered on 11/01/18 08:52; Admin Dose 81 MG; Start 10/20/18 at 12:00 Lorazepam (Ativan) 1 mg Q6H PRN IV ANXIETY Last administered on 11/01/18 00:40; Admin Dose 1 MG; Start 10/20/18 at 12:00 Lisinopril (Zestril) 5 mg DAILY GTB Last administered on 11/01/18 08:52; Admin Dose 5 MG; Start 10/21/18 at 11:00 Hydralazine HCl (Apresoline) 10 mg Q4H PRN IV ELEVATED SYSTOLIC BP Last administered on 10/27/18at 02:46; Admin Dose 10 MG; Start 10/22/18 at 03:00 Acetaminophen/ Hydrocodone Bitart ([place] (5/325)) 1 tab Q4H PRN GTB MODERATE PAIN LEVEL 4-6 Last administered on 10/31/18at 20:36; Admin Dose 1 TAB; Start 10/24/18 at 01:00 EDWARD MIGUEL NP Nov 01, 2018 10:58
[2018-11-01] MEDS ORDERED: LISINOPRIL 5 MG TAB GTB ONE (11:00)
[2018-11-01 11:20] VITALS: BP 134/74; PULSE 63
[2018-11-01] MEDS: HYDROCODONE/APAP (5/325) TAB GTB PRN ×2 (11:21→16:59)
[2018-11-01 15:05] VITALS: BP 132/81; PULSE 66; RESP 19
[2018-11-01 20:37] VITALS: BP 176/97; PULSE 78; RESP 16
[2018-11-01 21:10] VITALS: BP 156/90
[2018-11-01] MEDS: POLYETHYLENE GLYCOL 17 GM PACKET GTB SCH (21:43)
[2018-11-01] MEDS: DOCUSATE SODIUM 10 MG/ML (10ML CUP) GTB SCH (21:43)
[2018-11-01] MEDS: ATORVASTATIN 40 MG TAB GTB SCH (21:43)
[2018-11-02] VITALS (11 sets, daily range): BP systolic 131–220; BP diastolic 79–113; PULSE 74–107; RESP 16–18
[2018-11-02] MEDS ORDERED: LORAZEPAM 2 MG INJ IV STA (01:09)
[2018-11-02] MEDS: SOD CHLORIDE 0.9% 1,000 ML IV SCH ×3 (01:22→17:43)
[2018-11-02] MEDS ORDERED: hydrALAzine 20 MG INJ ONE (02:48)
[2018-11-02] MEDS: hydrALAzine 20 MG INJ IV PRN (02:50)
[2018-11-02] MEDS ORDERED: KETOROLAC 30 MG INJ IV STA (03:48)
[2018-11-02] MEDS: LANSOPRAZOLE 30 MG CAP PO SCH (03:57)
[2018-11-02] MEDS ORDERED: HALOPERIDOL 5 MG INJ IM STA (04:29)
[2018-11-02] MEDS ORDERED: HALOPERIDOL 5 MG INJ ONE (04:32)
[2018-11-02] MEDS: LORAZEPAM 2 MG INJ IV PRN ×2 (04:35→18:07)
[2018-11-02] MEDS ORDERED: ENALAPRILAT 1.25 MG INJ ONE (06:15)
[2018-11-02] MEDS ORDERED: ENALAPRILAT 1.25 MG INJ IV PRN (06:30)
[2018-11-02] MEDS: ASPIRIN 81 MG TAB GTB SCH (08:01)
[2018-11-02] MEDS: DOCUSATE SODIUM 10 MG/ML (10ML CUP) GTB SCH (08:01)
[2018-11-02] MEDS: POLYETHYLENE GLYCOL 17 GM PACKET GTB SCH (08:01)
[2018-11-02] MEDS: SERTRALINE 50 MG TAB GTB SCH (08:02)
[2018-11-02] MEDS: LISINOPRIL 5 MG TAB GTB SCH (08:02)
[2018-11-02] MEDS: CLOPIDOGREL 75 MG TAB GTB SCH (08:02)
[2018-11-02] MEDS: MUPIROCIN 2% 22 GM OINT TOP SCH (08:50)
--- NOTE | 2018-11-02 11:26 | PN ---
Date/Time of Note Date/Time of Note DATE: 11/02/18 TIME: 11:22 Assessment/Plan VTE Prophylaxis Risk score (from Ns)>0 risk: 5 SCD applied (from Ns): Yes Pharmacological prophylaxis: NA/contraindicated Pharm contraindication: anticoag not tolerated Lines/Catheters IV [facility] (from [facility]): Peripheral IV Urinary Cath still in place: No Assessment/Plan Hospital Course SUBJECTIVE:Pt pulled Gtube out. BP high last nite as nurse unable to administer Gt meds. OBJECTIVE: Vital signs-see below PHYSICAL EXAM: Constitutional: Chronically ill looking male, no acute distress HEENT: Head atraumatic and normocephalic. Eyes: Extraocular muscles intact. Anicteric sclerae. Pupils equal bilaterally, reactive to light. NECK: Supple without lymph node. CHEST: Clear and good breath sounds equally. No wheezing. No rhonchi. HEART: S1, S2. Regular rate and rhythm. ABDOMEN: Soft with no rebound tenderness. Bowel sounds were present. EXTREMITIES:left sided hemiplegia. No cyanosis, clubbing or edema. NEUROLOGIC: Alert and oriented x1. Somnolent/confused..+Left hemiplegic. PSYCHOSOCIAL: In a good mood. No signs of depression. INTEGUMENTARY: Moist mucous membranes. Good skin turgor, intact. ASSESSMENT AND PLAN: 68-year-old male with a past medical history of stroke with underlying dysphagia, hypertension, dyslipidemia, and chronic encephalopathy admitted w/cough/congestion found to have pneumonia Pneumonia. - s/p antibiotics course History of stroke. -on dual antiplatelet therapy/statin. Hypertension -BP high 2/2 no route access for pills. -start IV vasotec low dose around the clock and PRN hydralazine until new Gtube is placed. -note specific parameter instructions given on IV Vasotec. Dysphagia. - tube feeds-pt pulled gtube out laast nite - GI consult for new replacement tube. Vascular dementia -stable Debility -ECF placement DVT prophylaxis. -Bilateral SCDs. Disposition:Pt now needs a new replacement Gtube. GI consulted. cont. w/ SNF finding. Patient was seen in collaboration with Result Diagram: 11/02/18 0654 11/02/18 0654 Results 24hrs Laboratory Tests Test 11/02/18 06:54 White Blood Count 8.0 Red Blood Count 5.17 Hemoglobin 14.4 Hematocrit 42.8 Mean Corpuscular Volume 82.8 Mean Corpuscular Hemoglobin 27.9 L Mean Corpuscular Hemoglobin Concent 33.6 Red Cell Distribution Width 16.5 H Platelet Count 312 Mean Platelet Volume 10.3 Immature Granulocytes % 0.400 Neutrophils % 56.1 Lymphocytes % 33.8 Monocytes % 7.4 Eosinophils % 2.0 Basophils % 0.3 Nucleated Red Blood Cells % 0.0 Immature Granulocytes # 0.030 Neutrophils # 4.5 Lymphocytes # 2.7 Monocytes # 0.6 Eosinophils # 0.2 Basophils # 0.0 Nucleated Red Blood Cells # 0.0 Sodium Level 141 Potassium Level 3.9 Chloride Level 108 Carbon Dioxide Level 24 Anion Gap 9 Blood Urea Nitrogen 10 Creatinine 0.46 L Est Glomerular Filtrat Rate mL/min > 60 Glucose Level 88 Calcium Level 9.7 Exam/Review of Systems Exam Vitals Vital Signs Date Temp Pulse Resp B/P (MAP) Pulse Ox O2 O2 Flow FiO2 Time Delivery Rate 11/02/18 98.7 74 18 132/79 99 08:27 (96) 10/29/18 Room Air 14:43 Intake and Output 11/01/18 11/01/18 11/02/18 1515:00 23:00 07:00 IntakeIntake Total 1250 ml BalanceBalance 1250 ml Results Results 24hrs Laboratory Tests Test 11/02/18 06:54 White Blood Count 8.0 Red Blood Count 5.17 Hemoglobin 14.4 Hematocrit 42.8 Mean Corpuscular Volume 82.8 Mean Corpuscular Hemoglobin 27.9 L Mean Corpuscular Hemoglobin Concent 33.6 Red Cell Distribution Width 16.5 H Platelet Count 312 Mean Platelet Volume 10.3 Immature Granulocytes % 0.400 Neutrophils % 56.1 Lymphocytes % 33.8 Monocytes % 7.4 Eosinophils % 2.0 Basophils % 0.3 Nucleated Red Blood Cells % 0.0 Immature Granulocytes # 0.030 Neutrophils # 4.5 Lymphocytes # 2.7 Monocytes # 0.6 Eosinophils # 0.2 Basophils # 0.0 Nucleated Red Blood Cells # 0.0 Sodium Level 141 Potassium Level 3.9 Chloride Level 108 Carbon Dioxide Level 24 Anion Gap 9 Blood Urea Nitrogen 10 Creatinine 0.46 L Est Glomerular Filtrat Rate mL/min > 60 Glucose Level 88 Calcium Level 9.7 Medications Medication Current Medications IV Flush (NS 3 ml) 3 ml PER PROTOCOL IV ; Start 4/13/19 at 23:00 Ondansetron HCl (Zofran Inj) 4 mg Q6H PRN IV NAUSEA/VOMITING; Start 10/16/18 at 23:00 Albuterol/ Ipratropium (Duoneb) 3 ml Q2H RESP THERAPY PRN HHN SHORTNESS OF BREATH; Start 10/16/18 at 23:00 Lansoprazole (Prevacid) 30 mg DAILY@06 PO Last administered on 10/31/18 05:32; Admin Dose 30 MG; Start 10/19/18 at 06:00 Mupirocin (Bactroban) 1 applic BID TOP Last administered on 11/02/18 08:50; Admin Dose 1 APPLIC; Start 10/18/18 at 21:00 Acetaminophen (Tylenol Tab) 650 mg Q6H PRN GTB .PAIN 1-3 OR TEMP Last administered on 10/29/18 21:00; Admin Dose 650 MG; Start 10/20/18 at 17:00 Atorvastatin Calcium (Lipitor) 40 mg QHS GTB Last administered on 11/01/18 21:43; Admin Dose 40 MG; Start 10/20/18 at 21:00 Clopidogrel Bisulfate (plaVIX) 75 mg DAILY GTB Last administered on 11/01/18 08:52; Admin Dose 75 MG; Start 10/21/18 at 09:00 Sertraline HCl (Zoloft) 25 mg DAILY GTB Last administered on 11/01/18 08:52; Admin Dose 25 MG; Start 10/21/18 at 09:00 Aspirin (Aspirin) 81 mg DAILY GTB Last administered on 11/01/18 08:52; Admin Dose 81 MG; Start 10/20/18 at 12:00 Lorazepam (Ativan) 1 mg Q6H PRN IV ANXIETY Last administered on 11/02/18 04:35; Admin Dose 1 MG; Start 10/20/18 at 12:00 Acetaminophen/ Hydrocodone Bitart ([place] (5/325)) 1 tab Q4H PRN GTB MODERATE PAIN LEVEL 4-6 Last administered on 11/01/18 16:59; Admin Dose 1 TAB; Start 10/24/18 at 01:00 Lisinopril (Zestril) 10 mg DAILY GTB ; Start 11/02/18 at 09:00 Docusate Sodium (Colace Liquid Cup) 200 mg BID GTB Last administered on 11/01/18at 21:43; Admin Dose 200 MG; Start 11/01/18 at 20:30 Polyethylene Glycol (Miralax) 17 gm DAILY GTB Last administered on 11/01/18at 21:43; Admin Dose 17 GM; Start 11/01/18 at 20:30 Sodium Chloride 1,000 ml @ 70 mls/hr [id number] IV Last administered on 11/02/18at 01:22; Admin Dose 70 MLS/HR; Start 11/02/18 at 00:30 Hydralazine HCl (Apresoline) 10 mg Q6H PRN IV sbp greater than 170 Last administered on 11/02/18at 02:50; Admin Dose 10 MG; Start 11/02/18 at 03:00 Enalaprilat (Vasotec Iv) 1.25 mg Q6H PRN IV sbp above 170; Start 11/02/18 at 06:30 EDWARD MIGUEL NP Nov 02, 2018 11:26
[2018-11-02] MEDS: ENALAPRILAT 1.25 MG INJ IV SCH ×2 (11:48→17:44)
--- NOTE | 2018-11-02 14:14 | CONS ---
Assessment/Plan Assessment/Plan Hospital Course (Demo Recall) Summary Assessment and Plan: Assessment: Dysphagia- pulled gastrostomy tube out last night Pneumonia. HTN Hx of CVA- on Plavix/ASA- last dose 11/01 H/o dementia Plan: g-tube replacement KUB with contrast via g-tube ok to use for medication and restart previous feeding if KUB shows g-tube in stomach Patient seen in collaboration with Dr. Schroeder CC: SAMY SCHROEDER MD ; Consultation Date/Type/Reason Admit Date/Time Oct 16, 2018 at 20:02 Date of Consultation: Nov 02, 2018 Type of Consult GI Reason for Consultation G-tube replacement Date/Time of Note DATE: 11/02/18 TIME: 14:08 Hx of Present Illness This is a 68 year old male with, CVA, dysphagia requiring g-tube, hypertension, dyslipidemia, and chronic encephalopathy who was admitted for PNA and treated with antibiotic. Last- night patient pulled g-tube. GI has been consulted for g- tube replacement. Subjective hx not possible: other (confused) Past Medical History Medical History: other (See HPI) Home Meds Active Scripts Lisinopril* (Lisinopril*) 5 Mg Tablet, 5 MG GTB DAILY, #30 TAB Prov:EDELMIRA HERZOG [employer] 10/23/18 Reported Medications Atorvastatin* (Atorvastatin*) 40 Mg Tablet, 40 MG GTB QHS, #30 TAB 10/16/18 Sennosides* (Senna Lax*) 8.6 Mg Tablet, 1 TAB GTB DAILY, TAB 10/16/18 Docusate Sodium* (Docusate Sodium*) 100 Mg Capsule, 100 MG GTB DAILY, #30 CAP 10/16/18 Hydrochlorothiazide* (Hydrochlorothiazide*) 25 Mg Tab, 25 MG GTB DAILY, #30 TAB 10/16/18 Aspirin* (Aspirin* EC) 81 Mg Tablet., 81 MG GTB DAILY, TAB 10/16/18 Ondansetron Hcl* (Zofran*) 4 Mg Tablet, 4 MG PO Q6H PRN for NAUSEA AND OR VOMITING, TAB 10/16/18 Clopidogrel Bisulfate (Clopidogrel) 75 Mg Tablet, 75 MG PO DAILY, #30 TAB 10/16/18 Sertraline Hcl* (Zoloft*) 25 Mg Tablet, 25 MG PO DAILY, #30 TAB 10/16/18 Lorazepam* (Lorazepam*) 1 Mg Tablet, 1 MG PO TID PRN for ANXIETY, #30 TAB 10/16/18 [Dulcolax Supp] No Conflict Check, 1 RECTAL DAILY for CONSTIPATION 10/16/18 Medications Current Medications IV Flush (NS 3 ml) 3 ml PER PROTOCOL IV ; Start 10/16/18 at 23:00 Ondansetron HCl (Zofran Inj) 4 mg Q6H PRN IV NAUSEA/VOMITING; Start 10/16/18 at 23:00 Albuterol/ Ipratropium (Duoneb) 3 ml Q2H RESP THERAPY PRN HHN SHORTNESS OF BREATH; Start 10/16/18 at 23:00 Lansoprazole (Prevacid) 30 mg DAILY@06 PO Last administered on 10/31/18 05:32; Admin Dose 30 MG; Start 10/19/18 at 06:00; Status Hold Mupirocin (Bactroban) 1 applic BID TOP Last administered on 11/02/18 08:50; Admin Dose 1 APPLIC; Start 10/18/18 at 21:00 Acetaminophen (Tylenol Tab) 650 mg Q6H PRN GTB .PAIN 1-3 OR TEMP Last administered on 10/29/18 21:00; Admin Dose 650 MG; Start 10/20/18 at 17:00; Status Hold Atorvastatin Calcium (Lipitor) 40 mg QHS GTB Last administered on 11/01/18 21:43; Admin Dose 40 MG; Start 10/20/18 at 21:00; Status Hold Clopidogrel Bisulfate (plaVIX) 75 mg DAILY GTB Last administered on 11/01/18 08:52; Admin Dose 75 MG; Start 10/21/18 at 09:00; Status Hold Sertraline HCl (Zoloft) 25 mg DAILY GTB Last administered on 11/01/18 08:52; Admin Dose 25 MG; Start 10/21/18 at 09:00; Status Hold Aspirin (Aspirin) 81 mg DAILY GTB Last administered on 11/01/18 08:52; Admin Dose 81 MG; Start 10/20/18 at 12:00; Status Hold Lorazepam (Ativan) 1 mg Q6H PRN IV ANXIETY Last administered on 11/02/18 04:35; Admin Dose 1 MG; Start 10/20/18 at 12:00 Acetaminophen/ Hydrocodone Bitart ([place] (5/325)) 1 tab Q4H PRN GTB MODERATE PAIN LEVEL 4-6 Last administered on 11/01/18at 16:59; Admin Dose 1 TAB; Start 10/24/18 at 01:00; Status Hold Lisinopril (Zestril) 10 mg DAILY GTB ; Start 11/02/18 at 09:00; Status Hold Docusate Sodium (Colace Liquid Cup) 200 mg BID GTB Last administered on 11/01/18at 21:43; Admin Dose 200 MG; Start 11/01/18 at 20:30; Status Hold Polyethylene Glycol (Miralax) 17 gm DAILY GTB Last administered on 11/01/18at 21:43; Admin Dose 17 GM; Start 11/01/18 at 20:30; Status Hold Sodium Chloride 1,000 ml @ 70 mls/hr [id number] IV Last administered on 11/02/18at 01:22; Admin Dose 70 MLS/HR; Start 11/02/18 at 00:30 Hydralazine HCl (Apresoline) 10 mg Q6H PRN IV sbp greater than 170 Last administered on 11/02/18at 02:50; Admin Dose 10 MG; Start 11/02/18 at 03:00 Enalaprilat (Vasotec Iv) 0.625 mg Q6H IV Last administered on 11/02/18at 11:48; Admin Dose 0.625 MG; Start 11/02/18 at 11:30 Allergies: Coded Allergies: No Known Allergy (Unverified , 10/16/18) Past Surgical History Past Surgical Hx: other (See HPI) Social History Alcohol Use: other Smoking Status: Unknown if ever smoked (Unknown) Drug Use: other (Unknown) Exam/Review of Systems Exam Vitals Vital Signs Date Temp Pulse Resp B/P (MAP) Pulse Ox O2 O2 Flow FiO2 Time Delivery Rate 11/02/18 98.7 74 18 132/79 99 08:27 (96) 10/29/18 Room Air 14:43 Intake and Output 11/01/18 11/01/18 11/02/18 1515:00 23:00 07:00 IntakeIntake Total 1250 ml BalanceBalance 1250 ml Exam PHYSICAL EXAMINATION: GENERAL: Confused SKIN: ols ostomy site EYES: Pupils equal reactive to light, no discharge. EARS/NOSE AND THROAT: Ears normal, nose normal, oropharynx normal NECK: Supple, no masses, thyroid normal, CHEST: Inspection within normal limits. CARDIOVASCULAR: Heart: Regular rate and rhythm RESPIRATORY: Lungs clear to auscultation and percussion, no wheezing, no rubs GASTROINTESTINAL AND LIVER: Abdomen: Soft, non tenderness, non-distended, no hernias, no masses, no organomegaly, no ascites, no guarding, no rebound tenderness, normoactive bowel sounds. Rectal: Deferred. - ostomy site- from recently pulled out g-tube EXTREMITIES: No cyanosis, clubbing or edema. Results Result Diagram: 11/02/18 0654 11/02/18 0654 Results 24hrs Laboratory Tests Test 11/02/18 06:54 White Blood Count 8.0 Red Blood Count 5.17 Hemoglobin 14.4 Hematocrit 42.8 Mean Corpuscular Volume 82.8 Mean Corpuscular Hemoglobin 27.9 L Mean Corpuscular Hemoglobin Concent 33.6 Red Cell Distribution Width 16.5 H Platelet Count 312 Mean Platelet Volume 10.3 Immature Granulocytes % 0.400 Neutrophils % 56.1 Lymphocytes % 33.8 Monocytes % 7.4 Eosinophils % 2.0 Basophils % 0.3 Nucleated Red Blood Cells % 0.0 Immature Granulocytes # 0.030 Neutrophils # 4.5 Lymphocytes # 2.7 Monocytes # 0.6 Eosinophils # 0.2 Basophils # 0.0 Nucleated Red Blood Cells # 0.0 Sodium Level 141 Potassium Level 3.9 Chloride Level 108 Carbon Dioxide Level 24 Anion Gap 9 Blood Urea Nitrogen 10 Creatinine 0.46 L Est Glomerular Filtrat Rate mL/min > 60 Glucose Level 88 Calcium Level 9.7 Medications Medication Current Medications IV Flush (NS 3 ml) 3 ml PER PROTOCOL IV ; Start 10/16/18 at 23:00 Ondansetron HCl (Zofran Inj) 4 mg Q6H PRN IV NAUSEA/VOMITING; Start 10/16/18 at 23:00 Albuterol/ Ipratropium (Duoneb) 3 ml Q2H RESP THERAPY PRN HHN SHORTNESS OF BREATH; Start 10/16/18 at 23:00 Lansoprazole (Prevacid) 30 mg DAILY@06 PO Last administered on 10/31/18at 05:32; Admin Dose 30 MG; Start 10/19/18 at 06:00; Status Hold Mupirocin (Bactroban) 1 applic BID TOP Last administered on 11/02/18 08:50; Admin Dose 1 APPLIC; Start 10/18/18 at 21:00 Acetaminophen (Tylenol Tab) 650 mg Q6H PRN GTB .PAIN 1-3 OR TEMP Last administered on 10/29/18 21:00; Admin Dose 650 MG; Start 10/20/18 at 17:00; Status Hold Atorvastatin Calcium (Lipitor) 40 mg QHS GTB Last administered on 11/01/18 21:43; Admin Dose 40 MG; Start 10/20/18 at 21:00; Status Hold Clopidogrel Bisulfate (plaVIX) 75 mg DAILY GTB Last administered on 11/01/18 08:52; Admin Dose 75 MG; Start 10/21/18 at 09:00; Status Hold Sertraline HCl (Zoloft) 25 mg DAILY GTB Last administered on 11/01/18 08:52; Admin Dose 25 MG; Start 10/21/18 at 09:00; Status Hold Aspirin (Aspirin) 81 mg DAILY GTB Last administered on 11/01/18 08:52; Admin Dose 81 MG; Start 10/20/18 at 12:00; Status Hold Lorazepam (Ativan) 1 mg Q6H PRN IV ANXIETY Last administered on 11/02/18 04:35; Admin Dose 1 MG; Start 10/20/18 at 12:00 Acetaminophen/ Hydrocodone Bitart ([place] (5/325)) 1 tab Q4H PRN GTB MODERATE PAIN LEVEL 4-6 Last administered on 11/01/18 16:59; Admin Dose 1 TAB; Start 10/24/18 at 01:00; Status Hold Lisinopril (Zestril) 10 mg DAILY GTB ; Start 11/02/18 at 09:00; Status Hold Docusate Sodium (Colace Liquid Cup) 200 mg BID GTB Last administered on 11/01/18 21:43; Admin Dose 200 MG; Start 11/01/18 at 20:30; Status Hold Polyethylene Glycol (Miralax) 17 gm DAILY GTB Last administered on 11/01/18 21:43; Admin Dose 17 GM; Start 11/01/18 at 20:30; Status Hold Sodium Chloride 1,000 ml @ 70 mls/hr [id number] IV Last administered on 11/02/18 01:22; Admin Dose 70 MLS/HR; Start 11/02/18 at 00:30 Hydralazine HCl (Apresoline) 10 mg Q6H PRN IV sbp greater than 170 Last administered on 11/02/18 02:50; Admin Dose 10 MG; Start 11/02/18 at 03:00 Enalaprilat (Vasotec Iv) 0.625 mg Q6H IV Last administered on 11/02/18at 11:48; Admin Dose 0.625 MG; Start 11/02/18 at 11:30 LAKIA ROSENBERG Nov 02, 2018 14:14
[2018-11-02] MEDS ORDERED: IOHEXOL 300MG/ML 30 ML BTL ONE (15:52)
--- NOTE | 2018-11-02 16:10 | QN ---
Documentation Comment Patient gastrostomy tube is not operational. The patient was placed in supine position the area of the gastrostomy tube was cleansed with Betadine. Following this a Urdu 18 balloon gastrostomy replacement tube was inserted without difficulty. A KUB with Gastrografin injection will be obtained to confirm adequate positioning and feedings will be started upon clearance. SAMY DIXON MD Nov 02, 2018 16:10
[2018-11-03] MEDS: MUPIROCIN 2% 22 GM OINT TOP SCH ×3 (01:00→21:14)
[2018-11-03] MEDS: LORAZEPAM 2 MG INJ IV PRN (01:02)
[2018-11-03] MEDS: ENALAPRILAT 1.25 MG INJ IV SCH ×2 (01:10→04:52)
[2018-11-03 02:53] VITALS: BP 198/102; PULSE 90; RESP 18
[2018-11-03] MEDS: hydrALAzine 20 MG INJ IV PRN (02:57)
[2018-11-03] MEDS ORDERED: LORAZEPAM 2 MG INJ IV ONE (04:30)
[2018-11-03] MEDS ORDERED: HALOPERIDOL 5 MG INJ IM ONE (04:30)
[2018-11-03] MEDS: LANSOPRAZOLE 30 MG CAP PO SCH (05:00)
[2018-11-03 08:22] VITALS: BP 174/83; PULSE 81; RESP 20
[2018-11-03] MEDS: POLYETHYLENE GLYCOL 17 GM PACKET GTB SCH (09:11)
[2018-11-03] MEDS: CLOPIDOGREL 75 MG TAB GTB SCH (09:12)
[2018-11-03] MEDS: ASPIRIN 81 MG TAB GTB SCH (09:12)
[2018-11-03] MEDS: LISINOPRIL 5 MG TAB GTB SCH (09:12)
[2018-11-03] MEDS: SERTRALINE 50 MG TAB GTB SCH (09:12)
[2018-11-03] MEDS: DOCUSATE SODIUM 10 MG/ML (10ML CUP) GTB SCH ×2 (09:13→21:13)
[2018-11-03] MEDS: HYDROCODONE/APAP (5/325) TAB GTB PRN ×3 (09:57→22:51)
[2018-11-03 11:32] VITALS: BP 137/65; PULSE 73
--- NOTE | 2018-11-03 11:47 | PN ---
Date/Time of Note Date/Time of Note DATE: 11/03/18 TIME: 11:44 Assessment/Plan VTE Prophylaxis Risk score (from Ns)>0 risk: 7 SCD applied (from Ns): Yes Pharmacological prophylaxis: NA/contraindicated Pharm contraindication: anticoag not tolerated Lines/Catheters [facility] Peripheral IV Urinary Cath still in place: No Assessment/Plan Hospital Course SUBJECTIVE: Is post new replacement G-tube. Tolerating feeding well. No acute distress. OBJECTIVE: Vital signs-see below PHYSICAL EXAM: Constitutional: Chronically ill looking male, no acute distress HEENT: Head atraumatic and normocephalic. Eyes: Extraocular muscles intact. Anicteric sclerae. Pupils equal bilaterally, reactive to light. NECK: Supple without lymph node. CHEST: Clear and good breath sounds equally. No wheezing. No rhonchi. HEART: S1, S2. Regular rate and rhythm. ABDOMEN: Soft with no rebound tenderness. Bowel sounds were present. EXTREMITIES:left sided hemiplegia. No cyanosis, clubbing or edema. NEUROLOGIC: Alert and oriented x1. Somnolent/confused..+Left hemiplegic. PSYCHOSOCIAL: In a good mood. No signs of depression. INTEGUMENTARY: Moist mucous membranes. Good skin turgor, intact. ASSESSMENT AND PLAN: 68-year-old male with a past medical history of stroke with underlying dysphagia, hypertension, dyslipidemia, and chronic encephalopathy admitted w/cough/congestion found to have pneumonia Pneumonia. - s/p antibiotics course History of stroke. -on dual antiplatelet therapy/statin. Hypertension -Now stable. Continue current antihypertensive regimen. Dysphagia. -s/p replacement gtube 11/02 2/ dislodgement -Continue tube feeding as tolerated Vascular dementia -stable Debility -ECF placement DVT prophylaxis. -Bilateral SCDs. Disposition: Medically stable for discharge to long-term facility. Case management to assist with placement. Patient was seen in collaboration with Dr.[facility] Indication/DC Plan: placement Result Diagram: 11/02/18 0654 11/02/18 0654 Exam/Review of Systems Exam Vitals Vital Signs Date Temp Pulse Resp B/P (MAP) Pulse Ox O2 O2 Flow FiO2 Time Delivery Rate 11/03/18 73 137/65 11:32 (89) 11/03/18 98.3 20 98 Room Air 08:22 Intake and Output 11/02/18 11/02/18 11/03/18 1515:00 23:00 07:00 IntakeIntake Total 1000 ml 770 ml BalanceBalance 1000 ml 770 ml Medications Medication Current Medications IV Flush (NS 3 ml) 3 ml PER PROTOCOL IV ; Start 10/16/18 at 23:00 Ondansetron HCl (Zofran Inj) 4 mg Q6H PRN IV NAUSEA/VOMITING; Start 10/16/18 at 23:00 Albuterol/ Ipratropium (Duoneb) 3 ml Q2H RESP THERAPY PRN HHN SHORTNESS OF BREATH; Start 10/16/18 at 23:00 Lansoprazole (Prevacid) 30 mg DAILY@06 PO Last administered on 11/03/18 05:00; Admin Dose 30 MG; Start 10/19/18 at 06:00 Mupirocin (Bactroban) 1 applic BID TOP Last administered on 11/03/18 09:13; Admin Dose 1 APPLIC; Start 10/18/18 at 21:00 Acetaminophen (Tylenol Tab) 650 mg Q6H PRN GTB .PAIN 1-3 OR TEMP Last administered on 10/29/18 21:00; Admin Dose 650 MG; Start 10/20/18 at 17:00 Atorvastatin Calcium (Lipitor) 40 mg QHS GTB Last administered on 11/01/18 21:43; Admin Dose 40 MG; Start 10/20/18 at 21:00 Clopidogrel Bisulfate (plaVIX) 75 mg DAILY GTB Last administered on 11/03/18 09:12; Admin Dose 75 MG; Start 10/21/18 at 09:00 Sertraline HCl (Zoloft) 25 mg DAILY GTB Last administered on 11/03/18 09:12; Admin Dose 25 MG; Start 10/21/18 at 09:00 Aspirin (Aspirin) 81 mg DAILY GTB Last administered on 11/03/18 09:12; Admin Dose 81 MG; Start 10/20/18 at 12:00 Lorazepam (Ativan) 1 mg Q6H PRN IV ANXIETY Last administered on 11/03/18 01:02; Admin Dose 1 MG; Start 10/20/18 at 12:00 Acetaminophen/ Hydrocodone Bitart ([place] (5/325)) 1 tab Q4H PRN GTB MODERATE PAIN LEVEL 4-6 Last administered on 11/03/18 09:57; Admin Dose 1 TAB; Start 10/24/18 at 01:00 Lisinopril (Zestril) 10 mg DAILY GTB Last administered on 11/03/18 09:12; Admin Dose 10 MG; Start 11/02/18 at 09:00 Docusate Sodium (Colace Liquid Cup) 200 mg BID GTB Last administered on 11/03/18 09:13; Admin Dose 200 MG; Start 11/01/18 at 20:30 Polyethylene Glycol (Miralax) 17 gm DAILY GTB Last administered on 11/03/18 09:11; Admin Dose 17 GM; Start 11/01/18 at 20:30 Sodium Chloride 1,000 ml @ 70 mls/hr [id number] IV Last administered on 11/02/18 17:43; Admin Dose 70 MLS/HR; Start 11/02/18 at 00:30 Hydralazine HCl (Apresoline) 10 mg Q6H PRN IV sbp greater than 170 Last administered on 11/03/18 02:57; Admin Dose 10 MG; Start 11/02/18 at 03:00 EDWARD MIGUEL NP November 03, 2018 11:47
[2018-11-03 15:18] VITALS: BP 149/65; PULSE 85; RESP 18
--- NOTE | 2018-11-03 15:42 | PN ---
Date/Time of Note Date/Time of Note DATE: 11/03/18 TIME: 15:40 Assessment/Plan VTE Prophylaxis Risk score (from [facility] [place])>0 risk: 7 SCD applied (from [facility] [place]): Yes Pharmacological prophylaxis: other (scds) Lines/Catheters IV [facility]ter Type (from [facility]): Peripheral IV Urinary Cath still in place: No Assessment/Plan Hospital Course Summary Assessment and Plan: Assessment: Dysphagia- pulled gastrostomy tube 11/01 -18frech g-tube replaced 11/02/18 -KUB with contrast- Gastrostomy tube in stomach. Pneumonia. HTN Hx of CVA- on Plavix/ASA H/o dementia Plan: PEG care BID GI will sign off but will be available upon reconsult as needed Patient seen in collaboration with Dr. Schroeder Subjective: Course reviewed with nursing staff Patient interviewed and examined All labs, imaging and other results reviewed The patient tolerating TF well, No c/o n/v G-tube flushes well without resistance. PHYSICAL EXAMINATION: GENERAL: Confused SKIN: ols ostomy site EYES: Pupils equal reactive to light, no discharge. EARS/NOSE AND THROAT: Ears normal, nose normal, oropharynx normal NECK: Supple, no masses, thyroid normal, CHEST: Inspection within normal limits. CARDIOVASCULAR: Heart: Regular rate and rhythm RESPIRATORY: Lungs clear to auscultation and percussion, no wheezing, no rubs GASTROINTESTINAL AND LIVER: Abdomen: Soft, non tenderness, non-distended, no hernias, no masses, no organomegaly, no ascites, no guarding, no rebound tenderness, normoactive bowel sounds. Rectal: Deferred. - ostomy site- from recently pulled out g-tube EXTREMITIES: No cyanosis, clubbing or edema. Result Diagram: 11/02/18 0654 11/02/18 0654 Exam/Review of Systems Exam Vitals Vital Signs Date Temp Pulse Resp B/P (MAP) Pulse Ox O2 O2 Flow FiO2 Time Delivery Rate 11/03/18 98.2 85 18 149/65 98 Room Air 15:18 (93) Intake and Output 11/02/18 11/02/18 11/03/18 1515:00 23:00 07:00 IntakeIntake Total 1000 ml 770 ml BalanceBalance 1000 ml 770 ml Medications Medication Current Medications IV Flush (NS 3 ml) 3 ml PER PROTOCOL IV ; Start 10/16/18 at 23:00 Ondansetron HCl (Zofran Inj) 4 mg Q6H PRN IV NAUSEA/VOMITING; Start 10/16/18 at 23:00 Albuterol/ Ipratropium (Duoneb) 3 ml Q2H RESP THERAPY PRN HHN SHORTNESS OF BREATH; Start 10/16/18 at 23:00 Lansoprazole (Prevacid) 30 mg DAILY@06 PO Last administered on 11/03/18 05:00; Admin Dose 30 MG; Start 10/19/18 at 06:00 Mupirocin (Bactroban) 1 applic BID TOP Last administered on 11/03/18 09:13; Admin Dose 1 APPLIC; Start 10/18/18 at 21:00 Acetaminophen (Tylenol Tab) 650 mg Q6H PRN GTB .PAIN 1-3 OR TEMP Last administered on 10/29/18 21:00; Admin Dose 650 MG; Start 10/20/18 at 17:00 Atorvastatin Calcium (Lipitor) 40 mg QHS GTB Last administered on 11/01/18 21:43; Admin Dose 40 MG; Start 10/20/18 at 21:00 Clopidogrel Bisulfate (plaVIX) 75 mg DAILY GTB Last administered on 11/03/18 09:12; Admin Dose 75 MG; Start 10/21/18 at 09:00 Sertraline HCl (Zoloft) 25 mg DAILY GTB Last administered on 11/03/18 09:12; Admin Dose 25 MG; Start 10/21/18 at 09:00 Aspirin (Aspirin) 81 mg DAILY GTB Last administered on 11/03/18 09:12; Admin Dose 81 MG; Start 10/20/18 at 12:00 Lorazepam (Ativan) 1 mg Q6H PRN IV ANXIETY Last administered on 11/03/18 01:02; Admin Dose 1 MG; Start 10/20/18 at 12:00 Acetaminophen/ Hydrocodone Bitart ([place] (5/325)) 1 tab Q4H PRN GTB MODERATE PAIN LEVEL 4-6 Last administered on 11/03/18 09:57; Admin Dose 1 TAB; Start 10/24/18 at 01:00 Lisinopril (Zestril) 10 mg DAILY GTB Last administered on 11/03/18 09:12; Admin Dose 10 MG; Start 11/02/18 at 09:00 Docusate Sodium (Colace Liquid Cup) 200 mg BID GTB Last administered on 11/03/18at 09:13; Admin Dose 200 MG; Start 11/01/18 at 20:30 Polyethylene Glycol (Miralax) 17 gm DAILY GTB Last administered on 11/03/18 09:11; Admin Dose 17 GM; Start 11/01/18 at 20:30 Hydralazine HCl (Apresoline) 10 mg Q6H PRN IV sbp greater than 170 Last administered on 11/03/18at 02:57; Admin Dose 10 MG; Start 11/02/18 at 03:00 LAKIA ROSENBERG November 03, 2018 15:42
[2018-11-03 19:45] VITALS: BP 130/76; PULSE 86; RESP 17
[2018-11-03] MEDS: ATORVASTATIN 40 MG TAB GTB SCH (21:10)
[2018-11-04 02:08] VITALS: BP 178/99; PULSE 86; RESP 17
[2018-11-04] MEDS: hydrALAzine 20 MG INJ IV PRN (02:29)
[2018-11-04] MEDS: LANSOPRAZOLE 30 MG CAP PO SCH (06:01)
[2018-11-04 08:00] VITALS: BP 150/72; PULSE 80; RESP 18
[2018-11-04] MEDS: ASPIRIN 81 MG TAB GTB SCH (09:08)
[2018-11-04] MEDS: CLOPIDOGREL 75 MG TAB GTB SCH (09:08)
[2018-11-04] MEDS: POLYETHYLENE GLYCOL 17 GM PACKET GTB SCH (09:08)
[2018-11-04] MEDS: SERTRALINE 50 MG TAB GTB SCH (09:09)
[2018-11-04] MEDS: LISINOPRIL 5 MG TAB GTB SCH (09:12)
[2018-11-04] MEDS: DOCUSATE SODIUM 10 MG/ML (10ML CUP) GTB SCH ×2 (09:13→21:10)
[2018-11-04] MEDS: MUPIROCIN 2% 22 GM OINT TOP SCH ×2 (09:13→21:10)
[2018-11-04 12:30] VITALS: BP 140/71; PULSE 77; RESP 20
--- NOTE | 2018-11-04 14:24 | PN ---
Date/Time of Note Date/Time of Note DATE: 11/04/18 TIME: 14:22 Assessment/Plan VTE Prophylaxis Risk score (from Ns)>0 risk: 7 SCD applied (from [facility] [place]): Yes Pharmacological prophylaxis: NA/contraindicated Pharm contraindication: anticoag not tolerated Lines/Catheters [facility] ([facility] Peripheral IV Urinary Cath still in place: No Assessment/Plan Hospital Course SUBJECTIVE: No acute distress. OBJECTIVE: Vital signs-see below PHYSICAL EXAM: Constitutional: Chronically ill looking male, no acute distress HEENT: Head atraumatic and normocephalic. Eyes: Extraocular muscles intact. Anicteric sclerae. Pupils equal bilaterally, reactive to light. NECK: Supple without lymph node. CHEST: Clear and good breath sounds equally. No wheezing. No rhonchi. HEART: S1, S2. Regular rate and rhythm. ABDOMEN: Soft with no rebound tenderness. Bowel sounds were present. EXTREMITIES:left sided hemiplegia. No cyanosis, clubbing or edema. NEUROLOGIC: Alert and oriented x1. Somnolent/confused..+Left hemiplegic. PSYCHOSOCIAL: In a good mood. No signs of depression. INTEGUMENTARY: Moist mucous membranes. Good skin turgor, intact. ASSESSMENT AND PLAN: 68-year-old male with a past medical history of stroke with underlying dysphagia, hypertension, dyslipidemia, and chronic encephalopathy admitted w/cough/congestion found to have pneumonia Pneumonia. - s/p antibiotics course History of stroke. -on dual antiplatelet therapy/statin. Hypertension -Needs more control. Increase lisinopril to 20 mg. Dysphagia. --s/p replacement gtube 11/02 08/07 dislodgement -Continue tube feeding as tolerated Vascular dementia -stable Debility -ECF placement DVT prophylaxis. -Bilateral SCDs. Disposition: Medically stable for discharge to assisted facility. Case management to assist with placement. Patient was seen in collaboration with Dr.[facility] Indication/DC Plan: SNF Result Diagram: 11/02/18 0654 11/04/18 0527 Results 24hrs Laboratory Tests Test 11/04/18 05:27 Sodium Level 144 Potassium Level 3.6 Chloride Level 110 Carbon Dioxide Level 25 Anion Gap 9 Blood Urea Nitrogen 16 Creatinine 0.59 L Est Glomerular Filtrat Rate mL/min > 60 Glucose Level 106 Calcium Level 9.9 Magnesium Level 2.2 Exam/Review of Systems Exam Vitals Vital Signs Date Temp Pulse Resp B/P (MAP) Pulse Ox O2 O2 Flow FiO2 Time Delivery Rate 11/04/18 98.6 80 18 150/72 96 08:00 (98) 11/03/18 Room Air 15:18 Intake and Output 11/03/18 11/03/18 11/04/18 1414:59 22:59 06:59 IntakeIntake Total 230 ml 1000 ml BalanceBalance 230 ml 1000 ml Results Results 24hrs Laboratory Tests Test 11/04/18 05:27 Sodium Level 144 Potassium Level 3.6 Chloride Level 110 Carbon Dioxide Level 25 Anion Gap 9 Blood Urea Nitrogen 16 Creatinine 0.59 L Est Glomerular Filtrat Rate mL/min > 60 Glucose Level 106 Calcium Level 9.9 Magnesium Level 2.2 Medications Medication Current Medications IV Flush (NS 3 ml) 3 ml PER PROTOCOL IV ; Start 10/16/18 at 23:00 Ondansetron HCl (Zofran Inj) 4 mg Q6H PRN IV NAUSEA/VOMITING; Start 10/16/18 at 23:00 Albuterol/ Ipratropium (Duoneb) 3 ml Q2H RESP THERAPY PRN HHN SHORTNESS OF BREATH; Start 10/16/18 at 23:00 Lansoprazole (Prevacid) 30 mg DAILY@06 PO Last administered on 11/04/18at 06:01; Admin Dose 30 MG; Start 10/19/18 at 06:00 Mupirocin (Bactroban) 1 applic BID TOP Last administered on 11/04/18at 09:13; Admin Dose 1 APPLIC; Start 10/18/18 at 21:00 Acetaminophen (Tylenol Tab) 650 mg Q6H PRN GTB .PAIN 1-3 OR TEMP Last administered on 10/29/18at 21:00; Admin Dose 650 MG; Start 10/20/18 at 17:00 Atorvastatin Calcium (Lipitor) 40 mg QHS GTB Last administered on 11/03/18 21:10; Admin Dose 40 MG; Start 10/20/18 at 21:00 Clopidogrel Bisulfate (plaVIX) 75 mg DAILY GTB Last administered on 11/04/18 09:08; Admin Dose 75 MG; Start 10/21/18 at 09:00 Sertraline HCl (Zoloft) 25 mg DAILY GTB Last administered on 11/04/18 09:09; Admin Dose 25 MG; Start 10/21/18 at 09:00 Aspirin (Aspirin) 81 mg DAILY GTB Last administered on 11/04/18 09:08; Admin Dose 81 MG; Start 10/20/18 at 12:00 Lorazepam (Ativan) 1 mg Q6H PRN IV ANXIETY Last administered on 11/03/18 01:02; Admin Dose 1 MG; Start 10/20/18 at 12:00 Acetaminophen/ Hydrocodone Bitart ([place] (5/325)) 1 tab Q4H PRN GTB MODERATE PAIN LEVEL 4-6 Last administered on 11/03/18 22:51; Admin Dose 1 TAB; Start 10/24/18 at 01:00 Lisinopril (Zestril) 10 mg DAILY GTB Last administered on 11/04/18 09:12; Admin Dose 10 MG; Start 11/02/18 at 09:00 Docusate Sodium (Colace Liquid Cup) 200 mg BID GTB Last administered on 09:13; Admin Dose 200 MG; Start 11/01/18 at 20:30 Polyethylene Glycol (Miralax) 17 gm DAILY GTB Last administered on 11/04/18 09:08; Admin Dose 17 GM; Start 11/01/18 at 20:30 Hydralazine HCl (Apresoline) 10 mg Q6H PRN IV sbp greater than 170 Last administered on 11/04/18 02:29; Admin Dose 10 MG; Start 11/02/18 at 03:00 EDWARD MIGUEL NP November 04, 2018 14:24
[2018-11-04] MEDS: HYDROCODONE/APAP (5/325) TAB GTB PRN ×2 (19:00→23:45)
[2018-11-04 20:00] VITALS: BP 129/77; PULSE 74; RESP 18
[2018-11-04] MEDS: ATORVASTATIN 40 MG TAB GTB SCH (21:10)
[2018-11-05 02:00] VITALS: BP 159/96; PULSE 69; RESP 18
[2018-11-05] MEDS: LANSOPRAZOLE 30 MG CAP PO SCH (06:18)
[2018-11-05] MEDS: HYDROCODONE/APAP (5/325) TAB GTB PRN ×3 (06:18→20:14)
[2018-11-05 08:00] VITALS: BP 138/81; PULSE 91; RESP 20
[2018-11-05] MEDS: POLYETHYLENE GLYCOL 17 GM PACKET GTB SCH (08:54)
[2018-11-05] MEDS: ASPIRIN 81 MG TAB GTB SCH (08:54)
[2018-11-05] MEDS: CLOPIDOGREL 75 MG TAB GTB SCH (08:55)
[2018-11-05] MEDS: SERTRALINE 50 MG TAB GTB SCH (08:55)
[2018-11-05] MEDS: LISINOPRIL 20 MG TAB GTB SCH (08:56)
[2018-11-05] MEDS: DOCUSATE SODIUM 10 MG/ML (10ML CUP) GTB SCH ×2 (08:56→20:14)
[2018-11-05] MEDS: MUPIROCIN 2% 22 GM OINT TOP SCH ×2 (08:56→20:15)
--- NOTE | 2018-11-05 10:36 | PN ---
Date/Time of Note Date/Time of Note DATE: 11/05/18 TIME: 10:35 Assessment/Plan VTE Prophylaxis Risk score (from Ns)>0 risk: 6 [place] [facility] [place] Pharmacological prophylaxis: NA/contraindicated Pharm contraindication: anticoag not tolerated Lines/Catheters IV Catheter Type (from [facility]): Saline Lock Urinary Cath still in place: No Assessment/Plan Hospital Course SUBJECTIVE: No acute distress. OBJECTIVE: Vital signs-see below PHYSICAL EXAM: Constitutional: Chronically ill looking male, no acute distress HEENT: Head atraumatic and normocephalic. Eyes: Extraocular muscles intact. Anicteric sclerae. Pupils equal bilaterally, reactive to light. NECK: Supple without lymph node. CHEST: Clear and good breath sounds equally. No wheezing. No rhonchi. HEART: S1, S2. Regular rate and rhythm. ABDOMEN: Soft with no rebound tenderness. Bowel sounds were present. EXTREMITIES:left sided hemiplegia. No cyanosis, clubbing or edema. NEUROLOGIC: Alert and oriented x1. Somnolent/confused..+Left hemiplegic. PSYCHOSOCIAL: In a good mood. No signs of depression. INTEGUMENTARY: Moist mucous membranes. Good skin turgor, intact. ASSESSMENT AND PLAN: 68-year-old male with a past medical history of stroke with underlying dysphagia, hypertension, dyslipidemia, and chronic encephalopathy admitted w/cough/congestion found to have pneumonia Pneumonia. - s/p antibiotics course History of stroke. -on dual antiplatelet therapy/statin. Hypertension -Needs more control. Increase lisinopril to 20 mg. Dysphagia. -s/p replacement gtube 11/02 08/07 dislodgement -Continue tube feeding as tolerated Vascular dementia -stable Debility -ECF placement DVT prophylaxis. -Bilateral SCDs. Disposition: Medically stable for [facility]. Case management to assist with placement. As far as of today, [facility]. Patient was seen in collaboration with Dr.[facility] Indication/DC Plan: Placement Result Diagram: 11/02/18 0654 11/04/18 0527 Exam/Review of Systems Exam Vitals Vital Signs Date Temp Pulse Resp B/P (MAP) Pulse Ox O2 O2 Flow FiO2 Time Delivery Rate 11/05/18 98.6 91 20 138/81 96 08:00 (100) 11/05/18 Room Air 02:00 Intake and Output 11/04/18 11/04/18 11/05/18 1515:00 23:00 07:00 IntakeIntake Total 1060 ml BalanceBalance 1060 ml Medications Medication Current Medications IV Flush (NS 3 ml) 3 ml PER PROTOCOL IV ; Start 10/16/18 at 23:00 Ondansetron HCl (Zofran Inj) 4 mg Q6H PRN IV NAUSEA/VOMITING; Start 10/16/18 at 23:00 Albuterol/ Ipratropium (Duoneb) 3 ml Q2H RESP THERAPY PRN HHN SHORTNESS OF BREATH; Start 10/16/18 at 23:00 Lansoprazole (Prevacid) 30 mg DAILY@06 PO Last administered on 11/05/18 06:18; Admin Dose 30 MG; Start 10/19/18 at 06:00 Mupirocin (Bactroban) 1 applic BID TOP Last administered on 11/05/18 08:56; Admin Dose 1 APPLIC; Start 10/18/18 at 21:00 Acetaminophen (Tylenol Tab) 650 mg Q6H PRN GTB .PAIN 1-3 OR TEMP Last administered on 10/29/18 21:00; Admin Dose 650 MG; Start 10/20/18 at 17:00 Atorvastatin Calcium (Lipitor) 40 mg QHS GTB Last administered on 11/04/18 21:10; Admin Dose 40 MG; Start 10/20/18 at 21:00 Clopidogrel Bisulfate (plaVIX) 75 mg DAILY GTB Last administered on 11/05/18 08:55; Admin Dose 75 MG; Start 10/21/18 at 09:00 Sertraline HCl (Zoloft) 25 mg DAILY GTB Last administered on 11/05/18 08:55; Admin Dose 25 MG; Start 10/21/18 at 09:00 Aspirin (Aspirin) 81 mg DAILY GTB Last administered on 11/05/18 08:54; Admin Dose 81 MG; Start 10/20/18 at 12:00 Lorazepam (Ativan) 1 mg Q6H PRN IV ANXIETY Last administered on 11/03/18 01:02; Admin Dose 1 MG; Start 10/20/18 at 12:00 Acetaminophen/ Hydrocodone Bitart ([place] (5/325)) 1 tab Q4H PRN GTB MODERATE PAIN LEVEL 4-6 Last administered on 11/05/18 06:18; Admin Dose 1 TAB; Start 10/24/18 at 01:00 Docusate Sodium (Colace Liquid Cup) 200 mg BID GTB Last administered on 11/05/18 08:56; Admin Dose 200 MG; Start 11/01/18 at 20:30 Polyethylene Glycol (Miralax) 17 gm DAILY GTB Last administered on 11/05/18 08:54; Admin Dose 17 GM; Start 11/01/18 at 20:30 Hydralazine HCl (Apresoline) 10 mg Q6H PRN IV sbp greater than 170 Last administered on 11/04/18at 02:29; Admin Dose 10 MG; Start 11/02/18 at 03:00 Lisinopril (Zestril) 20 mg DAILY GTB Last administered on 11/05/18 08:56; Admin Dose 20 MG; Start 11/05/18 at 09:00 EDWARD MIGUEL NP November 05, 2018 10:36
[2018-11-05 14:00] VITALS: BP 141/81; PULSE 86; RESP 18; RESP 78
[2018-11-05 20:00] VITALS: BP 155/89; PULSE 67; RESP 18
[2018-11-05] MEDS: ATORVASTATIN 40 MG TAB GTB SCH (20:14)
[2018-11-06 02:00] VITALS: BP 139/91; PULSE 64; RESP 18
[2018-11-06] MEDS: LANSOPRAZOLE 30 MG CAP PO SCH (05:27)
[2018-11-06] MEDS: HYDROCODONE/APAP (5/325) TAB GTB PRN ×2 (05:39→21:20)
[2018-11-06 08:00] VITALS: BP 128/71; PULSE 71; RESP 18
[2018-11-06] MEDS: SERTRALINE 50 MG TAB GTB SCH (08:43)
[2018-11-06] MEDS: DOCUSATE SODIUM 10 MG/ML (10ML CUP) GTB SCH ×2 (08:43→21:20)
[2018-11-06] MEDS: ASPIRIN 81 MG TAB GTB SCH (08:43)
[2018-11-06] MEDS: CLOPIDOGREL 75 MG TAB GTB SCH (08:43)
[2018-11-06] MEDS: POLYETHYLENE GLYCOL 17 GM PACKET GTB SCH (08:43)
[2018-11-06] MEDS: LISINOPRIL 20 MG TAB GTB SCH (08:43)
[2018-11-06] MEDS: MUPIROCIN 2% 22 GM OINT TOP SCH ×2 (08:44→21:20)
--- NOTE | 2018-11-06 11:02 | PN ---
Date/Time of Note Date/Time of Note DATE: 11/06/18 TIME: 10:59 Assessment/Plan VTE Prophylaxis Risk score (from Ns)>0 risk: 5 SCD applied (from Ns): Yes Pharmacological prophylaxis: heparin Lines/Catheters IV [facility] (from [facility] Saline Lock Urinary Cath still in place: No Assessment/Plan Problems: (1) Debility Status: Chronic Comment: Presently stable in a controlled environment. He needs placement which case management is still working on (2) MRSA nasal colonization Status: Chronic Comment: Noted. Recheck cultures since he is [place] had such a long duration of treatment (3) History of CVA (cerebrovascular accident) Status: Chronic Comment: Noted. On antiplatelet therapy (4) At high risk for aspiration Status: Chronic Comment: Noted and has a PEG (5) Vascular dementia Status: Chronic Comment: Noted. Qualifiers: Dementia behavioral disturbance: without behavioral disturbance Qualified Codes: F01.50 - Vascular dementia without behavioral disturbance Result Diagram: 11/02/18 0654 11/04/18 0527 Subjective 24 Hr Interval Summary Free Text/Dictation Patient sleeping in bed. Constitutional: no complaints Cardiovascular: no complaints Exam/Review of Systems Exam Vitals Vital Signs Date Temp Pulse Resp B/P (MAP) Pulse Ox O2 O2 Flow FiO2 Time Delivery Rate 11/06/18 98.8 71 18 128/71 96 08:00 (90) 11/05/18 Room Air 02:00 Intake and Output 11/05/18 11/05/18 11/06/18 1515:00 23:00 07:00 IntakeIntake Total 1250 ml BalanceBalance 1250 ml Exam Sleeping in bed easily awakened Neck: supple, non-tender Respiratory: clear to auscultation, normal air movement Cardiovascular: regular rate and rhythm, nl pulses Medications Medication Current Medications IV Flush (NS 3 ml) 3 ml PER PROTOCOL IV ; Start 10/16/18 at 23:00 Ondansetron HCl (Zofran Inj) 4 mg Q6H PRN IV NAUSEA/VOMITING; Start 10/16/18 at 23:00 Albuterol/ Ipratropium (Duoneb) 3 ml Q2H RESP THERAPY PRN HHN SHORTNESS OF BREATH; Start 10/16/18 at 23:00 Lansoprazole (Prevacid) 30 mg DAILY@06 PO Last administered on 5/4/19at 05:27; Admin Dose 30 MG; Start 10/19/18 at 06:00 Mupirocin (Bactroban) 1 applic BID TOP Last administered on 11/06/18 08:44; Admin Dose 1 APPLIC; Start 10/18/18 at 21:00 Acetaminophen (Tylenol Tab) 650 mg Q6H PRN GTB .PAIN 1-3 OR TEMP Last administered on 10/29/18 21:00; Admin Dose 650 MG; Start 10/20/18 at 17:00 Atorvastatin Calcium (Lipitor) 40 mg QHS GTB Last administered on 11/05/18 20:14; Admin Dose 40 MG; Start 10/20/18 at 21:00 Clopidogrel Bisulfate (plaVIX) 75 mg DAILY GTB Last administered on 11/06/18 08:43; Admin Dose 75 MG; Start 10/21/18 at 09:00 Sertraline HCl (Zoloft) 25 mg DAILY GTB Last administered on 11/06/18 08:43; Admin Dose 25 MG; Start 10/21/18 at 09:00 Aspirin (Aspirin) 81 mg DAILY GTB Last administered on 11/06/18 08:43; Admin Dose 81 MG; Start 10/20/18 at 12:00 Lorazepam (Ativan) 1 mg Q6H PRN IV ANXIETY Last administered on 11/03/18 01:02; Admin Dose 1 MG; Start 10/20/18 at 12:00 Acetaminophen/ Hydrocodone Bitart ([place] (5/325)) 1 tab Q4H PRN GTB MODERATE PAIN LEVEL 4-6 Last administered on 11/06/18 05:39; Admin Dose 1 TAB; Start 10/24/18 at 01:00 Docusate Sodium (Colace Liquid Cup) 200 mg BID GTB Last administered on 11/06/18 08:43; Admin Dose 200 MG; Start 11/01/18 at 20:30 Polyethylene Glycol (Miralax) 17 gm DAILY GTB Last administered on 11/06/18 08:43; Admin Dose 17 GM; Start 11/01/18 at 20:30 Hydralazine HCl (Apresoline) 10 mg Q6H PRN IV sbp greater than 170 Last administered on 11/04/18 02:29; Admin Dose 10 MG; Start 11/02/18 at 03:00 Lisinopril (Zestril) 20 mg DAILY GTB Last administered on 11/06/18at 08:43; Admin Dose 20 MG; Start 11/05/18 at 09:00 MAYTE PANG MD November 06, 2018 11:02
[2018-11-06 14:00] VITALS: BP 140/62; PULSE 80; RESP 18
[2018-11-06 20:00] VITALS: BP 134/90; PULSE 74; RESP 18
[2018-11-06] MEDS: ATORVASTATIN 40 MG TAB GTB SCH (21:20)
[2018-11-07 02:00] VITALS: BP 179/96; PULSE 69; RESP 18
[2018-11-07] MEDS: HYDROCODONE/APAP (5/325) TAB GTB PRN ×2 (02:09→21:21)
[2018-11-07] MEDS: hydrALAzine 20 MG INJ IV PRN (02:32)
[2018-11-07 03:14] VITALS: BP 160/89; PULSE 66
[2018-11-07] MEDS: LANSOPRAZOLE 30 MG CAP PO SCH (06:00)
[2018-11-07] MEDS: DOCUSATE SODIUM 10 MG/ML (10ML CUP) GTB SCH ×2 (08:07→21:05)
[2018-11-07] MEDS: CLOPIDOGREL 75 MG TAB GTB SCH (08:07)
[2018-11-07] MEDS: ASPIRIN 81 MG TAB GTB SCH (08:08)
[2018-11-07] MEDS: SERTRALINE 50 MG TAB GTB SCH (08:08)
[2018-11-07] MEDS: MUPIROCIN 2% 22 GM OINT TOP SCH ×2 (08:08→21:08)
[2018-11-07] MEDS: POLYETHYLENE GLYCOL 17 GM PACKET GTB SCH (08:08)
[2018-11-07] MEDS: LISINOPRIL 20 MG TAB GTB SCH (08:09)
[2018-11-07 08:33] VITALS: BP 139/87; PULSE 61; RESP 17
--- NOTE | 2018-11-07 14:15 | PN ---
Date/Time of Note Date/Time of Note DATE: 11/07/18 TIME: 14:13 Assessment/Plan VTE Prophylaxis Risk score (from [facility] [place])>0 risk: 7 SCD applied (from [facility] [place]): Yes Pharmacological prophylaxis: heparin Lines/Catheters IV Catheter Type (from [facility]): Saline Lock Urinary Cath still in place: No Assessment/Plan Problems: (1) MRSA nasal colonization Status: Chronic Comment: Repeat study going through the laboratory now. If this is negative for MRSA may make placement just a little bit easier (2) Vascular dementia Status: Chronic Comment: Stable and unchanging. Qualifiers: Dementia behavioral disturbance: without behavioral disturbance Qualified Codes: F01.50 - Vascular dementia without behavioral disturbance (3) S/P percutaneous endoscopic gastrostomy (PEG) tube placement Status: Chronic Comment: Operational and effective (4) Debility Status: Chronic Comment: Noted. Result Diagram: 11/04/18 0527 Subjective 24 Hr Interval Summary Free Text/Dictation Patient sleeping in bed awakens Constitutional: no complaints Exam/Review of Systems Exam Vitals Vital Signs Date Temp Pulse Resp B/P (MAP) Pulse Ox O2 O2 Flow FiO2 Time Delivery Rate 11/07/18 98.2 61 17 139/87 96 08:33 (104) 11/05/18 Room Air 02:00 Intake and Output 11/06/18 11/06/18 11/07/18 1515:00 23:00 07:00 IntakeIntake Total 1230 ml BalanceBalance 1230 ml Respiratory: clear to auscultation, normal air movement Cardiovascular: regular rate and rhythm, nl pulses Gastrointestinal: soft, nl liver, spleen, non-tender, other (Functional PEG tube in place) Medications Medication Current Medications IV Flush (NS 3 ml) 3 ml PER PROTOCOL IV ; Start 10/16/18 at 23:00 Ondansetron HCl (Zofran Inj) 4 mg Q6H PRN IV NAUSEA/VOMITING; Start 10/16/18 at 23:00 Albuterol/ Ipratropium (Duoneb) 3 ml Q2H RESP THERAPY PRN HHN SHORTNESS OF BREATH; Start 10/16/18 at 23:00 Lansoprazole (Prevacid) 30 mg DAILY@06 PO Last administered on 11/07/18at 06:00; Admin Dose 30 MG; Start 10/19/18 at 06:00 Mupirocin (Bactroban) 1 applic BID TOP Last administered on 11/07/18 08:08; Admin Dose 1 APPLIC; Start 10/18/18 at 21:00 Acetaminophen (Tylenol Tab) 650 mg Q6H PRN GTB .PAIN 1-3 OR TEMP Last administered on 10/29/18 21:00; Admin Dose 650 MG; Start 10/20/18 at 17:00 Atorvastatin Calcium (Lipitor) 40 mg QHS GTB Last administered on 11/06/18 21:20; Admin Dose 40 MG; Start 10/20/18 at 21:00 Clopidogrel Bisulfate (plaVIX) 75 mg DAILY GTB Last administered on 11/07/18 08:07; Admin Dose 75 MG; Start 10/21/18 at 09:00 Sertraline HCl (Zoloft) 25 mg DAILY GTB Last administered on 11/07/18 08:08; Admin Dose 25 MG; Start 10/21/18 at 09:00 Aspirin (Aspirin) 81 mg DAILY GTB Last administered on 11/07/18 08:08; Admin Dose 81 MG; Start 10/20/18 at 12:00 Lorazepam (Ativan) 1 mg Q6H PRN IV ANXIETY Last administered on 11/03/18 01:02; Admin Dose 1 MG; Start 10/20/18 at 12:00 Acetaminophen/ Hydrocodone Bitart ([place] (5/325)) 1 tab Q4H PRN GTB MODERATE PAIN LEVEL 4-6 Last administered on 11/07/18 02:09; Admin Dose 1 TAB; Start 10/05 07/24 at 01:00 Docusate Sodium (Colace Liquid Cup) 200 mg BID GTB Last administered on 11/07/18 08:07; Admin Dose 200 MG; Start 11/01/18 at 20:30 Polyethylene Glycol (Miralax) 17 gm DAILY GTB Last administered on 11/07/18 08:08; Admin Dose 17 GM; Start 11/01/18 at 20:30 Hydralazine HCl (Apresoline) 10 mg Q6H PRN IV sbp greater than 170 Last administered on 11/07/18 02:32; Admin Dose 10 MG; Start 11/02/18 at 03:00 Lisinopril (Zestril) 20 mg DAILY GTB Last administered on 5/5/19at 08:09; Admin Dose 20 MG; Start 11/05/18 at 09:00 MAYTE PANG MD November 07, 2018 14:15
[2018-11-07 14:25] VITALS: BP 133/67; PULSE 63; RESP 19
[2018-11-07 20:00] VITALS: BP 156/81; PULSE 68; RESP 18
[2018-11-07] MEDS: ATORVASTATIN 40 MG TAB GTB SCH (21:06)
[2018-11-08] MEDS: LORAZEPAM 2 MG INJ IV PRN (01:12)
[2018-11-08 02:00] VITALS: BP 139/76; PULSE 88; RESP 18
[2018-11-08] MEDS: HYDROCODONE/APAP (5/325) TAB GTB PRN (02:37)
[2018-11-08] MEDS: LANSOPRAZOLE 30 MG CAP PO SCH (05:30)
[2018-11-08 08:00] VITALS: BP 148/89; PULSE 64; RESP 18
[2018-11-08] MEDS: CLOPIDOGREL 75 MG TAB GTB SCH (08:50)
[2018-11-08] MEDS: POLYETHYLENE GLYCOL 17 GM PACKET GTB SCH (08:50)
[2018-11-08] MEDS: DOCUSATE SODIUM 10 MG/ML (10ML CUP) GTB SCH ×2 (08:50→21:35)
[2018-11-08] MEDS: SERTRALINE 50 MG TAB GTB SCH (08:50)
[2018-11-08] MEDS: LISINOPRIL 20 MG TAB GTB SCH (08:51)
[2018-11-08] MEDS: ASPIRIN 81 MG TAB GTB SCH (08:51)
[2018-11-08] MEDS: MUPIROCIN 2% 22 GM OINT TOP SCH ×2 (08:52→21:35)
--- NOTE | 2018-11-08 13:17 | PN ---
Date/Time of Note Date/Time of Note DATE: 11/08/18 TIME: 13:16 Assessment/Plan VTE Prophylaxis Risk score (from [facility])>0 risk: 7 SCD applied (from [facility]): Yes Pharmacological prophylaxis: NA/contraindicated Pharm contraindication: anticoag not tolerated (GI bleed) Lines/Catheters IV [facility] Saline Lock Urinary Cath still in place: No Assessment/Plan Hospital Course SUBJECTIVE: No acute distress. OBJECTIVE: Vital signs-see below PHYSICAL EXAM: Constitutional: Chronically ill looking male, no acute distress HEENT: Head atraumatic and normocephalic. Eyes: Extraocular muscles intact. Anicteric sclerae. Pupils equal bilaterally, reactive to light. NECK: Supple without lymph node. CHEST: Clear and good breath sounds equally. No wheezing. No rhonchi. HEART: S1, S2. Regular rate and rhythm. ABDOMEN: Soft with no rebound tenderness. Bowel sounds were present. EXTREMITIES:left sided hemiplegia. No cyanosis, clubbing or edema. NEUROLOGIC: Alert and oriented x1. Somnolent/confused..+Left hemiplegic. PSYCHOSOCIAL: In a good mood. No signs of depression. INTEGUMENTARY: Moist mucous membranes. Good skin turgor, intact. ASSESSMENT AND PLAN: 68-year-old male with a past medical history of stroke with underlying dysphagia, hypertension, dyslipidemia, and chronic encephalopathy admitted w/cough/congestion found to have pneumonia Pneumonia. - s/p antibiotics course History of stroke. -on dual antiplatelet therapy/statin. Hypertension -Needs more control. Increase lisinopril to 20 mg. Dysphagia. -s/p replacement gtube 11/02 2/2 dislodgement -Continue tube feeding as tolerated Vascular dementia -stable Debility -ECF placement DVT prophylaxis. -Bilateral SCDs. Disposition: Medically stable for discharge to [facility] facility. Case management working on placement. As far as of today, no bed available in [facility]. Result Diagram: 11/04/18 0527 Exam/Review of Systems Exam Vitals Vital Signs Date Temp Pulse Resp B/P (MAP) Pulse Ox O2 O2 Flow FiO2 Time Delivery Rate 11/08/18 98.0 64 18 148/89 94 Room Air 08:00 (108) Intake and Output 11/07/18 11/07/18 11/08/18 1515:00 23:00 07:00 IntakeIntake Total 1320 ml BalanceBalance 1320 ml Medications Medication Current Medications IV Flush (NS 3 ml) 3 ml PER PROTOCOL IV ; Start 10/16/18 at 23:00 Ondansetron HCl (Zofran Inj) 4 mg Q6H PRN IV NAUSEA/VOMITING; Start 10/16/18 at 23:00 Albuterol/ Ipratropium (Duoneb) 3 ml Q2H RESP THERAPY PRN HHN SHORTNESS OF BREATH; Start 10/16/18 at 23:00 Lansoprazole (Prevacid) 30 mg DAILY@06 PO Last administered on 11/08/18 05:30; Admin Dose 30 MG; Start 10/19/18 at 06:00 Mupirocin (Bactroban) 1 applic BID TOP Last administered on 11/08/18 08:52; Admin Dose 1 APPLIC; Start 10/18/18 at 21:00 Acetaminophen (Tylenol Tab) 650 mg Q6H PRN GTB .PAIN 1-3 OR TEMP Last administered on 10/29/18 21:00; Admin Dose 650 MG; Start 10/20/18 at 17:00 Atorvastatin Calcium (Lipitor) 40 mg QHS GTB Last administered on 11/07/18 21:06; Admin Dose 40 MG; Start 10/20/18 at 21:00 Clopidogrel Bisulfate (plaVIX) 75 mg DAILY GTB Last administered on 11/08/18 08:50; Admin Dose 75 MG; Start 10/21/18 at 09:00 Sertraline HCl (Zoloft) 25 mg DAILY GTB Last administered on 11/08/18 08:50; Admin Dose 25 MG; Start 10/21/18 at 09:00 Aspirin (Aspirin) 81 mg DAILY GTB Last administered on 11/08/18 08:51; Admin Dose 81 MG; Start 10/20/18 at 12:00 Lorazepam (Ativan) 1 mg Q6H PRN IV ANXIETY Last administered on 11/08/18 01:12; Admin Dose 1 MG; Start 10/20/18 at 12:00 Acetaminophen/ Hydrocodone Bitart ([place] (5/325)) 1 tab Q4H PRN GTB MODERATE PAIN LEVEL 4-6 Last administered on 11/08/18 02:37; Admin Dose 1 TAB; Start 10/24/18 at 01:00 Docusate Sodium (Colace Liquid Cup) 200 mg BID GTB Last administered on 11/08/18 08:50; Admin Dose 200 MG; Start 11/01/18 at 20:30 Polyethylene Glycol (Miralax) 17 gm DAILY GTB Last administered on 11/08/18 08:50; Admin Dose 17 GM; Start 11/01/18 at 20:30 Hydralazine HCl (Apresoline) 10 mg Q6H PRN IV sbp greater than 170 Last administered on 11/07/18at 02:32; Admin Dose 10 MG; Start 11/02/18 at 03:00 Lisinopril (Zestril) 20 mg DAILY GTB Last administered on 11/08/18 08:51; Admin Dose 20 MG; Start 11/05/18 at 09:00 KEY DONALDSON November 08, 2018 13:17
[2018-11-08 14:00] VITALS: BP_SYST 131; PULSE 58; RESP 17
[2018-11-08 20:00] VITALS: BP 168/75; PULSE 66; RESP 18
[2018-11-08] MEDS: ATORVASTATIN 40 MG TAB GTB SCH (21:35)
[2018-11-09 02:00] VITALS: BP 152/87; PULSE 67; RESP 18
[2018-11-09] MEDS: LANSOPRAZOLE 30 MG CAP PO SCH (05:33)
[2018-11-09 08:00] VITALS: BP 174/93; PULSE 64; RESP 19
[2018-11-09] MEDS: hydrALAzine 20 MG INJ IV PRN (08:29)
[2018-11-09] MEDS: CLOPIDOGREL 75 MG TAB GTB SCH (09:15)
[2018-11-09] MEDS: DOCUSATE SODIUM 10 MG/ML (10ML CUP) GTB SCH ×2 (09:15→20:44)
[2018-11-09] MEDS: POLYETHYLENE GLYCOL 17 GM PACKET GTB SCH (09:15)
[2018-11-09] MEDS: ASPIRIN 81 MG TAB GTB SCH (09:16)
[2018-11-09] MEDS: SERTRALINE 50 MG TAB GTB SCH (09:16)
[2018-11-09 09:20] VITALS: BP 166/85
[2018-11-09] MEDS: LISINOPRIL 20 MG TAB GTB SCH (09:20)
[2018-11-09] MEDS: MUPIROCIN 2% 22 GM OINT TOP SCH ×2 (09:21→20:44)
[2018-11-09] MEDS: HYDROCODONE/APAP (5/325) TAB GTB PRN (09:24)
[2018-11-09 10:59] VITALS: BP 158/62; PULSE 60
[2018-11-09 14:00] VITALS: BP 134/99; PULSE 69; RESP 19
--- NOTE | 2018-11-09 14:58 | PN ---
Date/Time of Note Date/Time of Note DATE: 11/09/18 TIME: 14:56 Assessment/Plan VTE Prophylaxis Risk score (from [facility])>0 risk: 7 SCD applied (from [facility]): Yes Pharmacological prophylaxis: heparin Lines/Catheters IV [facility] Type (from [facility] Saline Lock Urinary Cath still in place: No Assessment/Plan Hospital Course SUBJECTIVE: No acute distress. OBJECTIVE: Vital signs-see below PHYSICAL EXAM: Constitutional: Chronically ill looking male, no acute distress HEENT: Head atraumatic and normocephalic. Eyes: Extraocular muscles intact. Anicteric sclerae. Pupils equal bilaterally, reactive to light. NECK: Supple without lymph node. CHEST: Clear and good breath sounds equally. No wheezing. No rhonchi. HEART: S1, S2. Regular rate and rhythm. ABDOMEN: Soft with no rebound tenderness. Bowel sounds were present. EXTREMITIES:left sided hemiplegia. No cyanosis, clubbing or edema. NEUROLOGIC: Alert and oriented x1. Somnolent/confused..+Left hemiplegic. PSYCHOSOCIAL: In a good mood. No signs of depression. INTEGUMENTARY: Moist mucous membranes. Good skin turgor, intact. ASSESSMENT AND PLAN: 68-year-old male with a past medical history of stroke with underlying dysphagia, hypertension, dyslipidemia, and chronic encephalopathy admitted w/cough/congestion found to have pneumonia Pneumonia. - s/p antibiotics course History of stroke. -on dual antiplatelet therapy/statin. Hypertension -Needs more control. Increase lisinopril to 20 mg. Dysphagia. -s/p replacement gtube 11/02 2/2 dislodgement -Continue tube feeding as tolerated Vascular dementia -stable Debility -ECF placement DVT prophylaxis. -Bilateral SCDs. Disposition: Medically stable for discharge to longterm facility. Case management working on placement. As far as of today, no bed available [facility]. Exam/Review of Systems Exam Vitals Vital Signs Date Temp Pulse Resp B/P (MAP) Pulse Ox O2 O2 Flow FiO2 Time Delivery Rate 11/09/18 60 158/62 10:59 (94) 11/09/18 97.9 19 98 08:00 11/08/18 Room Air 14:00 Intake and Output 11/08/18 11/08/18 11/09/18 1515:00 23:00 07:00 IntakeIntake Total 1220 ml BalanceBalance 1220 ml Medications Medication Current Medications IV Flush (NS 3 ml) 3 ml PER PROTOCOL IV ; Start 10/16/18 at 23:00 Ondansetron HCl (Zofran Inj) 4 mg Q6H PRN IV NAUSEA/VOMITING; Start 10/16/18 at 23:00 Albuterol/ Ipratropium (Duoneb) 3 ml Q2H RESP THERAPY PRN HHN SHORTNESS OF BREATH; Start 10/16/18 at 23:00 Lansoprazole (Prevacid) 30 mg DAILY@06 PO Last administered on 11/09/18 05:33; Admin Dose 30 MG; Start 10/19/18 at 06:00 Mupirocin (Bactroban) 1 applic BID TOP Last administered on 11/09/18 09:21; Admin Dose 1 APPLIC; Start 10/18/18 at 21:00 Acetaminophen (Tylenol Tab) 650 mg Q6H PRN GTB .PAIN 1-3 OR TEMP Last administered on 10/29/18 21:00; Admin Dose 650 MG; Start 10/20/18 at 17:00 Atorvastatin Calcium (Lipitor) 40 mg QHS GTB Last administered on 11/08/18 21:35; Admin Dose 40 MG; Start 10/20/18 at 21:00 Clopidogrel Bisulfate (plaVIX) 75 mg DAILY GTB Last administered on 11/09/18 09:15; Admin Dose 75 MG; Start 10/21/18 at 09:00 Sertraline HCl (Zoloft) 25 mg DAILY GTB Last administered on 11/09/18 09:16; Admin Dose 25 MG; Start 10/21/18 at 09:00 Aspirin (Aspirin) 81 mg DAILY GTB Last administered on 11/09/18 09:16; Admin Dose 81 MG; Start 10/20/18 at 12:00 Lorazepam (Ativan) 1 mg Q6H PRN IV ANXIETY Last administered on 11/08/18 01:12; Admin Dose 1 MG; Start 10/20/18 at 12:00 Acetaminophen/ Hydrocodone Bitart ([place] (5/325)) 1 tab Q4H PRN GTB MODERATE PAIN LEVEL 4-6 Last administered on 11/09/18 09:24; Admin Dose 1 TAB; Start 10/24/18 at 01:00 Docusate Sodium (Colace Liquid Cup) 200 mg BID GTB Last administered on 11/09/18 09:15; Admin Dose 200 MG; Start 11/01/18 at 20:30 Polyethylene Glycol (Miralax) 17 gm DAILY GTB Last administered on 11/09/18 09:15; Admin Dose 17 GM; Start 11/01/18 at 20:30 Hydralazine HCl (Apresoline) 10 mg Q6H PRN IV sbp greater than 170 Last administered on 11/09/18 08:29; Admin Dose 10 MG; Start 11/02/18 at 03:00 Lisinopril (Zestril) 20 mg DAILY GTB Last administered on 11/09/18 09:20; Admin Dose 20 MG; Start 11/05/18 at 09:00 KEY DONALDSON November 09, 2018 14:58
[2018-11-09 20:00] VITALS: BP 162/88; PULSE 73; RESP 18
[2018-11-09] MEDS: ATORVASTATIN 40 MG TAB GTB SCH (20:44)
[2018-11-09] MEDS: HEPARIN 5,000 UNIT/1 ML VIAL SC SCH (20:46)
[2018-11-10 02:00] VITALS: BP 165/94; PULSE 66; RESP 18
[2018-11-10] MEDS: LANSOPRAZOLE 30 MG CAP PO SCH (05:46)
[2018-11-10] MEDS: DOCUSATE SODIUM 10 MG/ML (10ML CUP) GTB SCH ×2 (08:47→20:19)
[2018-11-10] MEDS: SERTRALINE 50 MG TAB GTB SCH (08:48)
[2018-11-10] MEDS: CLOPIDOGREL 75 MG TAB GTB SCH (08:48)
[2018-11-10] MEDS: ASPIRIN 81 MG TAB GTB SCH (08:49)
[2018-11-10] MEDS: LISINOPRIL 20 MG TAB GTB SCH (08:50)
[2018-11-10] MEDS: POLYETHYLENE GLYCOL 17 GM PACKET GTB SCH (08:50)
[2018-11-10] MEDS: HEPARIN 5,000 UNIT/1 ML VIAL SC SCH ×2 (08:52→20:30)
[2018-11-10] MEDS: MUPIROCIN 2% 22 GM OINT TOP SCH ×2 (08:52→20:53)
[2018-11-10 10:08] VITALS: BP 177/90; PULSE 55; RESP 18
--- NOTE | 2018-11-10 11:08 | PN ---
Date/Time of Note Date/Time of Note DATE: 11/10/18 TIME: 11:08 Assessment/Plan VTE Prophylaxis Risk score (from [facility])>0 risk: 7 SCD applied (from [facility]): Yes Pharmacological prophylaxis: heparin Pharm contraindication: anticoag not tolerated (GI bleed) Lines/Catheters IV [facility] Type [facility]from [facility] Saline Lock Urinary Cath still in place: No Assessment/Plan Hospital Course SUBJECTIVE: No acute distress. OBJECTIVE: Vital signs-see below PHYSICAL EXAM: Constitutional: Chronically ill looking male, no acute distress HEENT: Head atraumatic and normocephalic. Eyes: Extraocular muscles intact. Anicteric sclerae. Pupils equal bilaterally, reactive to light. NECK: Supple without lymph node. CHEST: Clear and good breath sounds equally. No wheezing. No rhonchi. HEART: S1, S2. Regular rate and rhythm. ABDOMEN: Soft with no rebound tenderness. Bowel sounds were present. EXTREMITIES:left sided hemiplegia. No cyanosis, clubbing or edema. NEUROLOGIC: Alert and oriented x1. Somnolent/confused..+Left hemiplegic. PSYCHOSOCIAL: In a good mood. No signs of depression. INTEGUMENTARY: Moist mucous membranes. Good skin turgor, intact. ASSESSMENT AND PLAN: 68-year-old male with a past medical history of stroke with underlying dysphagia, hypertension, dyslipidemia, and chronic encephalopathy admitted w/cough/congestion found to have pneumonia Pneumonia. - s/p antibiotics course History of stroke. -on dual antiplatelet therapy/statin. Hypertension -Needs more control. Increase lisinopril to 20 mg. Dysphagia. -s/p replacement gtube 11/02 2/2 dislodgement -Continue tube feeding as tolerated Vascular dementia -stable Debility -ECF placement DVT prophylaxis. -Bilateral SCDs. Disposition: Medically [facility] to [facility]. Case management working on placement. As far as of today, no bed available in [facility]. Exam/Review of Systems Exam Vitals Vital Signs Date Temp Pulse Resp B/P (MAP) Pulse Ox O2 O2 Flow FiO2 Time Delivery Rate 11/10/18 97.8 55 18 177/90 98 Room Air 10:08 (119) Intake and Output 11/09/18 11/09/18 11/10/18 1515:00 23:00 07:00 IntakeIntake Total 1220 ml BalanceBalance 1220 ml Medications Medication Current Medications IV Flush (NS 3 ml) 3 ml PER PROTOCOL IV ; Start 10/16/18 at 23:00 Ondansetron HCl (Zofran Inj) 4 mg Q6H PRN IV NAUSEA/VOMITING; Start 10/16/18 at 23:00 Albuterol/ Ipratropium (Duoneb) 3 ml Q2H RESP THERAPY PRN HHN SHORTNESS OF UMAIR TH; Start 10/16/18 at 23:00 Lansoprazole (Prevacid) 30 mg DAILY@06 PO Last administered on 11/10/18 05:46; Admin Dose 30 MG; Start 10/19/18 at 06:00 Mupirocin (Bactroban) 1 applic BID TOP Last administered on 11/10/18 08:52; Admin Dose 1 APPLIC; Start 10/18/18 at 21:00 Acetaminophen (Tylenol Tab) 650 mg Q6H PRN GTB .PAIN 1-3 OR TEMP Last administered on 10/29/18 21:00; Admin Dose 650 MG; Start 10/20/18 at 17:00 Atorvastatin Calcium (Lipitor) 40 mg QHS GTB Last administered on 11/09/18 20:44; Admin Dose 40 MG; Start 10/20/18 at 21:00 Clopidogrel Bisulfate (plaVIX) 75 mg DAILY GTB Last administered on 11/10/18 08:48; Admin Dose 75 MG; Start 10/21/18 at 09:00 Sertraline HCl (Zoloft) 25 mg DAILY GTB Last administered on 11/10/18 08:48; Admin Dose 25 MG; Start 10/21/18 at 09:00 Aspirin (Aspirin) 81 mg DAILY GTB Last administered on 11/10/18 08:49; Admin Dose 81 MG; Start 10/20/18 at 12:00 Lorazepam (Ativan) 1 mg Q6H PRN IV ANXIETY Last administered on 11/08/18 01:12; Admin Dose 1 MG; Start 10/20/18 at 12:00 Acetaminophen/ Hydrocodone Bitart ([place] (5/325)) 1 tab Q4H PRN GTB MODERATE PAIN LEVEL 4-6 Last administered on 11/09/18 09:24; Admin Dose 1 TAB; Start 10/24/18 at 01:00 Docusate Sodium (Colace Liquid Cup) 200 mg BID GTB Last administered on 11/10/18 08:47; Admin Dose 200 MG; Start 11/01/18 at 20:30 Polyethylene Glycol (Miralax) 17 gm DAILY GTB Last administered on 11/10/18 08:50; Admin Dose 17 GM; Start 11/01/18 at 20:30 Hydralazine HCl (Apresoline) 10 mg Q6H PRN IV sbp greater than 170 Last admini stered on 11/09/18 08:29; Admin Dose 10 MG; Start 11/02/18 at 03:00 Lisinopril (Zestril) 20 mg DAILY GTB Last administered on 11/10/18 08:50; Admin Dose 20 MG; Start 11/05/18 at 09:00 Heparin Sodium (Porcine) (Heparin (5000 Units/1ml)) 5,000 unit BID SC Last administered on 11/10/18 08:52; Admin Dose 5,000 UNIT; Start 11/09/18 at 21:00 KEY DONALDSON November 10, 2018 11:08
[2018-11-10 14:37] VITALS: BP 116/84; PULSE 70; RESP 18
[2018-11-10 20:00] VITALS: BP 158/90; PULSE 66; RESP 18
[2018-11-10] MEDS: HYDROCODONE/APAP (5/325) TAB GTB PRN (20:18)
[2018-11-10] MEDS: ATORVASTATIN 40 MG TAB GTB SCH (20:19)
[2018-11-10] MEDS: LORAZEPAM 2 MG INJ IV PRN (23:31)
[2018-11-11 02:14] VITALS: BP 145/90; PULSE 78; RESP 20
[2018-11-11] MEDS: LANSOPRAZOLE 30 MG CAP PO SCH (06:34)
[2018-11-11 08:00] VITALS: BP 147/83; PULSE 64; RESP 17
[2018-11-11] MEDS: ASPIRIN 81 MG TAB GTB SCH (09:50)
[2018-11-11] MEDS: LISINOPRIL 20 MG TAB GTB SCH (09:50)
[2018-11-11] MEDS: SERTRALINE 50 MG TAB GTB SCH (09:51)
[2018-11-11] MEDS: CLOPIDOGREL 75 MG TAB GTB SCH (09:51)
[2018-11-11] MEDS: DOCUSATE SODIUM 10 MG/ML (10ML CUP) GTB SCH (09:51)
[2018-11-11] MEDS: POLYETHYLENE GLYCOL 17 GM PACKET GTB SCH (09:52)
[2018-11-11] MEDS: HEPARIN 5,000 UNIT/1 ML VIAL SC SCH (09:52)
[2018-11-11] MEDS: MUPIROCIN 2% 22 GM OINT TOP SCH (10:01)
[2018-11-11] MEDS: HYDROCODONE/APAP (5/325) TAB GTB PRN (12:10)
--- NOTE | 2018-11-11 12:48 | DS ---
Date/Time of Note Date/Time of Note DATE: 11/11/18 TIME: 12:43 Discharge Summary Admission/Discharge Info Admit Date/Time Oct 16, 2018 at 20:02 Discharge Date/Time Discharge Diagnosis 68-year-old male with a past medical history of stroke with underlying dysphag ia, hypertension, dyslipidemia, and chronic encephalopathy admitted w/cough/congestion found to have pneumonia 1. Aspiration Pneumonia. - s/p antibiotics course 2. History of stroke. -on dual antiplatelet therapy/statin. 3. Hypertension: controlled 4. Dysphagia. -s/p replacement g tube 11/02 2 dislodgement -Continue tube feeding as tolerated 5. Chronic Patient vascular dementia 6. Debility 7. Dyslipidemia : Statin . Patient Condition: Stable Consults Infectious disease: Mak Gama MD Gastroenterology: Juan Miguel Schroeder MD . Hospital Course 68-year-old male who was originally admitted from halfway facility because of abdominal pain and hematemesis. The patient had just recently suffered a CVA with left-sided deficits and had neurogenic dysphagia status post G-tube placement. He also has had a tracheostomy at the time which had been discontinued. He also had a history of hypertension and dyslipidemia. There was concern for possible hematemesis. 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 For concern for hematemesis, patient had no further episodes in-house his hemoglobin remained stable no further intervention was warranted. Of note is that he also had gram- positive bacteremia but this was determined to be a contaminant by ID. GI eventually saw the patient reports for G-tube replacement after there was been complications with the G-tube G-tube was replaced November 02, 2018 without complications. Patient had a prolonged hospitalization because the facility he came from could not take him back and so a new facility had to be sourced. At this time he has been accepted to [facility] and rehab and will be discharged in stable condition with aspiration precautions. Currently he is tolerating tube feeds with fiber source at 60 mL's per hour with 200 cc of water flush every 6 hours. . Home Meds Active Scripts Lisinopril* (Lisinopril*) 5 Mg Tablet, 5 MG GTB DAILY, #30 TAB Prov:EDELMIRA HERZOG [employer]IEF [employer]UTION [employer]CHITECT 10/23/18 Reported Medications Atorvastatin* (Atorvastatin*) 40 Mg Tablet, 40 MG GTB QHS, #30 TAB 10/16/18 Sennosides* (Senna Lax*) 8.6 Mg Tablet, 1 TAB GTB DAILY, TAB 10/16/18 Docusate Sodium* (Docusate Sodium*) 100 Mg Capsule, 100 MG GTB DAILY, #30 CAP 10/16/18 Hydrochlorothiazide* (Hydrochlorothiazide*) 25 Mg Tab, 25 MG GTB DAILY, #30 TAB 10/16/18 Aspirin* (Aspirin* EC) 81 Mg Tablet.dr, 81 MG GTB DAILY, TAB 10/16/18 Ondansetron Hcl* (Zofran*) 4 Mg Tablet, 4 MG PO Q6H PRN for NAUSEA AND OR VOMITING, TAB 10/16/18 Clopidogrel Bisulfate (Clopidogrel) 75 Mg Tablet, 75 MG PO DAILY, #30 TAB 10/16/18 Sertraline Hcl* (Zoloft*) 25 Mg Tablet, 25 MG PO DAILY, #30 TAB 10/16/18 Lorazepam* (Lorazepam*) 1 Mg Tablet, 1 MG PO TID PRN for ANXIETY, #30 TAB 10/16/18 [Dulcolax Supp] No Conflict Check, 1 RECTAL DAILY for CONSTIPATION 10/16/18 Follow-up Plan Patient to follow-up with his primary care physician. Primary Care Provider Care Physician No Primary Time spent on discharge: > 30 minutes KEY DONALDSON November 11, 2018 12:48
[2018-11-11 14:55] VITALS: BP 154/85; PULSE 56; RESP 18
== END 2018-11-11 19:25 | DRG 178 ==
LOC: E/R 18:19 → 2NE 20:02 → PP2 10-20 07:15
PROVIDERS: ADMIT Internal Medicine; ATTEND Family Medicine
PROC: 0DH63UZ Insertion of Feeding Device into Stomach, Percutaneous Approach (ICD-10-PCS; principal; 2018-11-02)
DX: J69.0 Pneumonitis due to inhalation of food and vomit (principal); I69.354 Hemiplegia and hemiparesis following cerebral infarction affecting left non-dominant side; K92.0 Hematemesis; R78.81 Bacteremia; G93.40 Encephalopathy, unspecified; K56.7 Ileus, unspecified; E87.6 Hypokalemia; I69.991 Dysphagia following unspecified cerebrovascular disease; R13.19 Other dysphagia; E78.5 Hyperlipidemia, unspecified; F01.50 Vascular dementia, unspecified severity, without behavioral disturbance, psychotic disturbance, mood disturbance, and anxiety; R10.84 Generalized abdominal pain; R25.2 Cramp and spasm; Z22.322 Carrier or suspected carrier of Methicillin resistant Staphylococcus aureus; B95.7 Other staphylococcus as the cause of diseases classified elsewhere; R13.12 Dysphagia, oropharyngeal phase; Z93.1 Gastrostomy status
CPT/HCPCS: 36415; 71045; 74018; 74176; 74230; 80048; 80053; 80061; 80202; 82270; 82728; 83036; 83540; 83690; 83735; 84100; 84132; 84443; 84484; 85025; 85610; 87081; 92526; 92610; 92611; 93005; 97110; 97161; 97530; C9113; J0360; J0456; J0696; J1630; J1644; J1885; J2060; J3370; J3475; J3480; J7030; J7050; Q9967

== ENCOUNTER 2019-03-06 16:52 | Inpatient (IN) | payer MEDICARE, OTHER ==
[~2019-03-06] VITALS: Ht 167.6 cm; Wt 72.5 kg
[~2019-03-06 16:52] MED LIST: ACET-2047 GTB; ACET325T45 GTB; AMIN30LI GTB; ASCO500C7 GTB; ASPI-817 GTB; ASPI81TA52 GTB; ATOR40TA68 GTB; BISA10SU55 RC; CLOP75TA27 GTB; CLOP75TA27 PO; CRAN3875 GTB; CRAN425C6 GTB; DOCU-144 GTB; DOCU-159 GTB; DULCOLAX SUPP RECTAL; GUAI-637 PO; HEPA500021 IJ; HYDR-4011 GTB; HYDR25TA6 GTB; IPRA3AMP29 INHALATION; LANS30CA GTB; LISI-313 GTB; LISI-471 GTB; LORA1TAB GTB; LORA1TAB PO; MAGN400O19 GTB; MULT9LIQ4 GTB; NA P133E10 RC; ONDA4TAB8 PO; POLY17PO6 GTB; QUET25TA GTB; QUET50TA GTB; SENN-120 GTB; SERT25TA GTB; SERT25TA PO
[2019-03-06] MEDS ORDERED: SOD CHLORIDE 0.9% 1,000 ML IV STA ×2 (17:26→17:41)
[2019-03-06] MEDS ORDERED: CEFEPIME 2GM/50 ML (PMX) 50 ML IVPB STA (17:57)
[2019-03-06] MEDS ORDERED: VANCOMYCIN 1 GM (PMX) 250 ML IVPB STA (17:57)
[2019-03-06] MEDS ORDERED: ACETAMINOPHEN 325 MG TAB PO PRN ×2 (19:00→19:30)
[2019-03-06] MEDS ORDERED: ONDANSETRON 4 MG INJ IV PRN ×2 (19:00→19:30)
[2019-03-06] MEDS ORDERED: LORAZEPAM 2 MG INJ IV PRN (19:30)
[2019-03-06] MEDS ORDERED: NACL 0.9% 3 ML SYG IV SCH (19:30)
[2019-03-06] MEDS ORDERED: morphine 2 MG INJ IV PRN (19:30)
[2019-03-06] MEDS ORDERED: ALBUTEROL/IPRATROPIUM (NEB) 3 ML AMP HHN PRN (19:30)
[2019-03-06] MEDS ORDERED: MAGNESIUM HYDROXIDE 30ML CUP PO PRN (19:30)
[2019-03-06] MEDS ORDERED: DOCUSATE SODIUM 100 MG CAP PO PRN (19:30)
[2019-03-06] MEDS ORDERED: GUAIFENESIN 20 MG/ML 5ML CUP PO PRN (19:30)
[2019-03-06] MEDS ORDERED: hydrALAzine 20 MG INJ IV PRN (19:30)
[2019-03-06] MEDS ORDERED: VANCOMYCIN IV PER PHARMACY XX SCH (19:30)
[2019-03-06] MEDS ORDERED: NITROGLYCERIN (SL) 0.4 MG TAB SL PRN (19:30)
[2019-03-06] MEDS: SOD CHLORIDE 0.45% 1,000 ML IV SCH (19:45)
[2019-03-06] MEDS ORDERED: VANCOMYCIN 750 MG (PMX) 250 ML IVPB SCH (20:30)
[2019-03-06] MEDS: HEPARIN 5,000 UNIT/0.5 ML VIAL SC SCH (21:08)
[2019-03-06] MEDS ORDERED: SOD CHLORIDE 0.9% 1,000 ML IV ONE (23:00)
[2019-03-07] MEDS ORDERED: SOD CHLORIDE 0.9% 1,000 ML IV ONE (01:00)
[2019-03-07] MEDS: CEFEPIME 2GM/50 ML (PMX) 50 ML IVPB SCH ×3 (05:51→21:33)
[2019-03-07] MEDS: LANSOPRAZOLE (SOLTAB) 30 MG TAB GTB SCH (08:37)
[2019-03-07 08:44] VITALS: BP 150/110; PULSE 96; RESP 24
[2019-03-07] MEDS: SOD CHLORIDE 0.45% 1,000 ML IV SCH (08:48)
[2019-03-07] MEDS: VANCOMYCIN 1.25 GM/NS 250 ML 250 ML IVPB SCH ×2 (08:48→21:32)
[2019-03-07] MEDS ORDERED: NON-FORMULARY/PATIENT OWN MED (Cranberry Extract (Cranberry) 425 MG) GTB SCH (09:00)
[2019-03-07 09:20] VITALS: RESP 12
[2019-03-07] MEDS ORDERED: SOD CHLORIDE 0.9% 680 ML IV ONE (10:00)
[2019-03-07] MEDS ORDERED: IOHEXOL 14.3 MG(I)/ML (ADULT) BTL PO ONE (10:00)
[2019-03-07] MEDS: DEXTROSE 5%-0.45% NACL 1,000 ML IV SCH ×2 (10:14→21:33)
[2019-03-07] MEDS: ATORVASTATIN 40 MG TAB GTB SCH ×2 (10:14→21:33)
[2019-03-07] MEDS: HEPARIN 5,000 UNIT/0.5 ML VIAL SC SCH ×2 (10:26→21:00)
[2019-03-07] MEDS: MAGNESIUM HYDROXIDE 30ML CUP GTB SCH (10:27)
[2019-03-07] MEDS: CLOPIDOGREL 75 MG TAB GTB SCH (10:27)
[2019-03-07] MEDS: HYDROCODONE/APAP (5/325) TAB PO PRN ×2 (10:27→17:13)
[2019-03-07] MEDS: MULTIVITAMINS 30 ML CUP GTB SCH (10:27)
[2019-03-07 13:14] VITALS: Ht 167.6 cm; Wt 72.5 kg
[2019-03-07 14:00] VITALS: BP 131/78; PULSE 84; RESP 16
[2019-03-07 20:44] VITALS: BP 128/71; PULSE 67; RESP 18
[2019-03-08] MEDS ORDERED: POLYETHYLENE GLYCOL 17 GM PACKET GTB PRN (01:00)
[2019-03-08 02:47] VITALS: BP 140/69; PULSE 67; RESP 16
[2019-03-08] MEDS: LANSOPRAZOLE (SOLTAB) 30 MG TAB GTB SCH (05:28)
[2019-03-08] MEDS: CEFEPIME 2GM/50 ML (PMX) 50 ML IVPB SCH ×3 (05:28→21:00)
[2019-03-08] MEDS: DEXTROSE 5%-0.45% NACL 1,000 ML IV SCH (05:29)
[2019-03-08 08:00] VITALS: BP 155/70; PULSE 67; RESP 20
[2019-03-08] MEDS: VANCOMYCIN 1.25 GM/NS 250 ML 250 ML IVPB SCH ×2 (08:07→20:59)
[2019-03-08] MEDS: CLOPIDOGREL 75 MG TAB GTB SCH (10:31)
[2019-03-08] MEDS: MAGNESIUM HYDROXIDE 30ML CUP GTB SCH (10:31)
[2019-03-08] MEDS: MULTIVITAMINS 30 ML CUP GTB SCH (10:31)
[2019-03-08] MEDS: DOCUSATE SODIUM 10 MG/ML (10ML CUP) GTB SCH ×2 (10:31→20:59)
[2019-03-08] MEDS: HEPARIN 5,000 UNIT/1 ML VIAL SC SCH ×2 (10:34→21:01)
[2019-03-08 14:00] VITALS: BP 155/80; PULSE 62; RESP 16
[2019-03-08] MEDS: POLYETHYLENE GLYCOL 17 GM PACKET GTB SCH (17:02)
[2019-03-08 20:31] VITALS: BP 149/82; PULSE 55; RESP 16
[2019-03-08] MEDS: ATORVASTATIN 40 MG TAB GTB SCH (20:59)
[2019-03-08] MEDS: HYDROCODONE/APAP (5/325) TAB PO PRN (21:02)
[2019-03-09 02:36] VITALS: BP 164/88; PULSE 50; RESP 20
[2019-03-09 03:00] VITALS: PULSE 59
[2019-03-09] MEDS: CEFEPIME 2GM/50 ML (PMX) 50 ML IVPB SCH ×2 (05:27→14:20)
[2019-03-09] MEDS: LANSOPRAZOLE (SOLTAB) 30 MG TAB GTB SCH (05:27)
[2019-03-09] MEDS: HYDROCODONE/APAP (5/325) TAB PO PRN ×2 (05:28→11:31)
[2019-03-09 08:00] VITALS: BP 143/83; PULSE 57; RESP 20
[2019-03-09] MEDS: MULTIVITAMINS 30 ML CUP GTB SCH (08:53)
[2019-03-09] MEDS: VANCOMYCIN 1.25 GM/NS 250 ML 250 ML IVPB SCH (08:53)
[2019-03-09] MEDS: HEPARIN 5,000 UNIT/1 ML VIAL SC SCH (08:53)
[2019-03-09] MEDS: CLOPIDOGREL 75 MG TAB GTB SCH (08:54)
[2019-03-09] MEDS: POLYETHYLENE GLYCOL 17 GM PACKET GTB SCH (08:54)
[2019-03-09] MEDS: MAGNESIUM HYDROXIDE 30ML CUP GTB SCH (08:54)
[2019-03-09] MEDS: DOCUSATE SODIUM 10 MG/ML (10ML CUP) GTB SCH (08:54)
[2019-03-09 14:00] VITALS: BP 140/62; PULSE 76; RESP 18
[2019-03-09 16:43] VITALS: BP 151/90
== END 2019-03-09 16:50 | DRG 871 ==
LOC: E/R 16:52 → PP2 18:58 → EDBEDREQSVC 03-07 06:05
PROVIDERS: ADMIT Internal Medicine; ATTEND Family Medicine
DX: A41.9 Sepsis, unspecified organism (principal); J18.9 Pneumonia, unspecified organism; E87.2 Acidosis; I69.354 Hemiplegia and hemiparesis following cerebral infarction affecting left non-dominant side; G93.49 Other encephalopathy; R65.20 Severe sepsis without septic shock; D75.1 Secondary polycythemia; F01.50 Vascular dementia, unspecified severity, without behavioral disturbance, psychotic disturbance, mood disturbance, and anxiety; E86.0 Dehydration; I10 Essential (primary) hypertension; R13.19 Other dysphagia; Z93.1 Gastrostomy status; I69.991 Dysphagia following unspecified cerebrovascular disease; E78.5 Hyperlipidemia, unspecified
CPT/HCPCS: 36415; 70450; 71045; 74176; 80048; 80053; 80061; 80202; 80307; 81001; 82962; 83036; 83605; 83735; 84100; 84439; 84443; 84484; 85025; 85610; 85730; 87081; 87086; 92610; 93005; 93306; 96374; 96375; 97162; 97166; J0360; J0692; J1644; J2270; J3370; J7030; J7042; Q9967